=== PATIENT | male | born 1985 | race Hispanic/Latino ===

== ENCOUNTER 2020-04-05 15:28 | Inpatient (IN) | payer OTHER, SELFPAY ==
[2020-04-05] MEDS ORDERED: ACETAMINOPHEN 325 MG TAB PO ONE (17:05)
[2020-04-05] MEDS ORDERED: SODIUM CHLORIDE 0.9% 1000 ML IV SOLN IV ONE (17:30)
[2020-04-05] MEDS ORDERED: MEROPENEM/NS 1 GRAM/100 ML 1 GRAM/100 ML BAG IV ONE (17:33)
[2020-04-05] MEDS ORDERED: MORPHINE 2 MG/1 ML INJ ONE ×2 (17:36→17:47)
[2020-04-05] MEDS ORDERED: ACETAMINOPHEN 325 MG TAB ONE ×2 (17:36→17:46)
[2020-04-05] MEDS ORDERED: ACETAMINOPHEN 500 MG TAB PO ONE (17:37)
[2020-04-05] MEDS ORDERED: MORPHINE 4 MG/1 ML INJ IV ONE (17:37)
[2020-04-05] MEDS ORDERED: ONDANSETRON 4 MG/2 ML INJ IV ONE (17:37)
--- NOTE | 2020-04-05 17:37 | Emergency Department Report ---
ED General Adult HPI - General Chief complaint: Fever Stated complaint: FEVER Time Seen by Provider: 04/05/20 17:22 Source: patient Mode of arrival: Stretcher Limitations: Physical Limitation - History of Present Illness Initial comments: Patient is 34 years old male with no significant past medical history except for his recent admission to the hospital for perirectal abscess. Patient was discharged from the hospital yesterday with a PICC line and an order for meropenem, Augmentin and doxycycline. Patient brought to the emergency room from home for evaluation of fever and pain to the local area. Patient had an I&D done by Dr. Aleman on March 31. Patient denies any cough, shortness of breath, runny nose congestion. Patient also denied any urinary symptoms. Sepsis protocol initiated and patient received a dose of meropenem, normal saline and, Tylenol and morphine. Severity scale (0 -10): 7 - Related Data Home Medications Medication Instructions Recorded Confirmed Last Taken Balsalazide Disodium [Colazal] 750 mg PO TID 03/31/20 04/05/20 Unknown Insulin Detemir [Levemir VIAL] 25 unit SQ QHS 03/31/20 04/05/20 Unknown Insulin NPH/Regular [NovoLIN 70/30] 4 unit SUB-Q BID 03/31/20 04/05/20 Unknown OLANZapine [Zyprexa] 5 mg PO DAILY 03/31/20 04/05/20 Unknown Potassium Chloride [K-Dur] 10 meq PO BID 03/31/20 04/05/20 Unknown Tamsulosin [Flomax] 0.4 mg PO QDAY 03/31/20 04/05/20 Unknown ursodioL [Ursodiol] 300 mg PO BID 03/31/20 04/05/20 Unknown Previous Rx's Medication Instructions Recorded Last Taken Type Amoxicillin/K Clav Tab [Augmentin 1 tab PO Q12HR #28 tab 04/01/20 Unknown Rx 875 mg] Doxycycline Hyclate [Doxycycline 100 mg PO Q12HR #28 tab 04/01/20 Unknown Rx Hyclate TAB] Ibuprofen [Motrin 800 MG tab] 800 mg PO Q8HR PRN #20 tablet 04/01/20 Unknown Rx Acetaminophen [Acetaminophen TAB] 650 mg PO Q4H PRN tablet 04/04/20 Unknown Rx Allergies Allergy/AdvReac Type Severity Reaction Status Date / Time Sulfa (Sulfonamide Allergy Rash Verified 03/30/20 19:19 Antibiotics) ED Review of Systems ROS: Stated complaint: FEVER Other details as noted in HPI Comment: All other systems reviewed and negative Constitutional: chills, fever Respiratory: denies: cough, orthopnea, shortness of breath, SOB with exertion, SOB at rest, wheezing Cardiovascular: palpitations. denies: chest pain Gastrointestinal: denies: abdominal pain, nausea, vomiting Neurological: denies: headache, weakness ED Past Medical Hx - Past Medical History Hx Hypertension: No Hx Heart Attack/AMI: No Hx Congestive Heart Failure: No Hx Diabetes: Yes Hx Deep Vein Thrombosis: No Hx Pulmonary Embolism: No Hx Liver Disease: No Hx Renal Disease: No Hx Sickle Cell Disease: No Hx Arthritis: No Hx Seizures: No Hx Asthma: No Hx COPD: No Hx HIV: No - Surgical History Hx Pacemaker: No Hx Internal Defibrillator: No Hx Cholecystectomy: No Hx Appendectomy: No - Social History Smoking Status: Current Every Day Smoker - Medications Home Medications: Home Medications Medication Instructions Recorded Confirmed Last Taken Type Balsalazide Disodium [Colazal] 750 mg PO TID 03/31/20 04/05/20 Unknown History Insulin Detemir [Levemir VIAL] 25 unit SQ QHS 03/31/20 04/05/20 Unknown History Insulin NPH/Regular [NovoLIN 70/30] 4 unit SUB-Q BID 03/31/20 04/05/20 Unknown History OLANZapine [Zyprexa] 5 mg PO DAILY 03/31/20 04/05/20 Unknown History Potassium Chloride [K-Dur] 10 meq PO BID 03/31/20 04/05/20 Unknown History Tamsulosin [Flomax] 0.4 mg PO QDAY 03/31/20 04/05/20 Unknown History ursodioL [Ursodiol] 300 mg PO BID 03/31/20 04/05/20 Unknown History Amoxicillin/K Clav Tab [Augmentin 1 tab PO Q12HR #28 tab 04/01/20 04/05/20 Unknown Rx 875 mg] Doxycycline Hyclate [Doxycycline 100 mg PO Q12HR #28 tab 04/01/20 04/05/20 Unknown Rx Hyclate TAB] Ibuprofen [Motrin 800 MG tab] 800 mg PO Q8HR PRN #20 tablet 04/01/20 04/05/20 Unknown Rx Acetaminophen [Acetaminophen TAB] 650 mg PO Q4H PRN tablet 04/04/20 04/05/20 Unknown Rx ED Physical Exam - General Limitations: Physical Limitation General appearance: alert, in no apparent distress - Head Head exam: Present: atraumatic, normocephalic, normal inspection - ENT ENT exam: Present: mucous membranes dry - Neck Neck exam: Present: normal inspection, full ROM. Absent: tenderness, meningismus - Respiratory Respiratory exam: Present: normal lung sounds bilaterally - Cardiovascular Cardiovascular Exam: Present: tachycardia - GI/Abdominal GI/Abdominal exam: Present: soft, normal bowel sounds. Absent: distended, tenderness, guarding, rebound, rigid, organomegaly, mass, bruit, pulsatile mass, hernia - Rectal Rectal exam: Present: other (I&D with a fistula track. Stool coming through the fistula.) - Extremities Exam Extremities exam: Present: normal inspection, full ROM, normal capillary refill - Neurological Exam Neurological exam: Present: alert, oriented X3, CN II-XII intact - Skin Skin exam: Present: warm ED Course Vital Signs 04/05/20 04/05/20 04/05/20 17:27 18:15 18:31 Temperature 103.2 F H Pulse Rate 125 H 107 H 106 H Respiratory 12 19 23 Rate Blood Pressure 112/69 112/69 Blood Pressure 127/83 [Right] O2 Sat by Pulse 97 97 96 Oximetry 04/05/20 04/05/20 04/05/20 19:01 19:15 19:31 Temperature Pulse Rate 110 H 98 H 102 H Respiratory 18 14 13 Rate Blood Pressure 112/69 101/61 101/61 Blood Pressure [Right] O2 Sat by Pulse 96 97 95 Oximetry 04/05/20 04/05/20 04/05/20 19:45 20:01 21:01 Temperature Pulse Rate 109 H 99 H 83 Respiratory 21 15 15 Rate Blood Pressure 101/61 101/61 96/56 Blood Pressure [Right] O2 Sat by Pulse 93 94 97 Oximetry 04/05/20 04/05/20 04/05/20 21:14 21:21 21:45 Temperature 99.8 F H 98.2 F Pulse Rate 76 66 Respiratory 16 18 Rate Blood Pressure 92/55 86/51 Blood Pressure [Right] O2 Sat by Pulse 97 95 Oximetry ED Medical Decision Making - Lab Data Result diagrams: 04/06/20 05:58 04/06/20 05:58 - Radiology Data Radiology results: report reviewed - Medical Decision Making Patient is 34 years old male with no significant past medical history except for his recent admission to the hospital for perirectal abscess. Patient was discharged from the hospital yesterday with a PICC line and an order for meropenem, Augmentin and doxycycline. Patient brought to the emergency room from home for evaluation of fever and pain to the local area. Patient had an I&D done by Dr. Aleman on March 31. Patient denies any cough, shortness of breath, runny nose congestion. Patient also denied any urinary symptoms. Sepsis protocol initiated and patient received a dose of meropenem, normal saline and, Tylenol and morphine. Chest x-ray showed a left lower lobe pneumonia. Most likely hospital-acquired pneumonia. Patient started on Levaquin. I discussed the patient with Dr. Cisneros who is covering for Dr. Velásquez, he agreed to admit the patient to the hospital for further management. Critical Care Time: Yes Critical care time in (mins) excluding proc time.: 30 Critical care attestation.: If time is entered above; I have spent that time in minutes in the direct care of this critically ill patient, excluding procedure time. ED Disposition Clinical Impression: Perirectal abscess, Left lower lobe pneumonia, Fever, Sepsis Disposition: OP ADMIT IP TO THIS HOSP Is pt being admited?: Yes Condition: Stable
[2020-04-05 17:54] LABS: Bilirubin,Urine NEG (Negative); Blood,Urine NEG (Negative); Color,Urine Straw (Yellow); Protein,Urine <15 mg/dL mg/dL (Negative); Urobilinogen,Urine < 2.0 mg/dL (<2.0)
--- NOTE | 2020-04-05 17:58 | XRay Report ---
CHEST 1 VIEW 5:30 PM INDICATION / CLINICAL INFORMATION: Fever. COMPARISON: None available. FINDINGS: SUPPORT DEVICES: None. HEART / MEDIASTINUM: The heart size and pulmonary vasculature are normal area LUNGS / PLEURA: There is a small focal area of parenchymal opacity in the left medial lung base in th e retrocardiac region. The lungs are otherwise clear. There is no evidence of pleural effusion. No pn eumothorax. ADDITIONAL FINDINGS: No significant additional findings. IMPRESSION: Small area of pneumonia in the left lower lobe medially. Signer Name: Linus Stover MD Signed: 04/05/2020 5:54 PM Workstation Name: [id number]
[2020-04-05 18:29] LABS: Hemoglobin 9.1 gm/dl (11.8-15.2); Mean Corpuscular HGB Conc 33 % (32-34); Mean Corpuscular Volume 89 fl (84-94); Platelet Count 227 K/mm3 (140-440); Red Blood Count 3.16 M/mm3 (3.65-5.03); Red Cell Distribution Width 17.7 % (13.2-15.2)
[2020-04-05 18:48] LABS: Alanine Aminotransferase 9 units/L (7-56); Albumin 2.1 g/dL (3.9-5); BUN/Creatinine Ratio 10; Blood Urea Nitrogen 6 mg/dL (9-20); Calcium 7.9 mg/dL (8.4-10.2); Hemolysis Index 15
[2020-04-05 19:13] LABS: Basophils % (Manual) 0 % (0.0-1.8); Total Cells Counted 100
[2020-04-05 19:18] LABS: Stomatocytes Few
[2020-04-05 19:19] LABS: Platelet Estimate Consistent w Auto
[2020-04-05 20:07] LABS: C-Reactive Protein 7.2 mg/dL (0.00-1.30)
--- NOTE | 2020-04-05 23:19 | History and Physical Report ---
History of Present Illness Date of examination: 04/05/20 Date of admission: 04/05/20 18:42 Chief complaint: Fever 1 day History of present illness: Patient is 34 years old male with no significant past medical history except for his recent admission to the hospital for perirectal abscess. Patient was discharged from the hospital yesterday with a PICC line and an order for meropenem, Augmentin and doxycycline. Patient brought to the emergency room from home for evaluation of fever and pain to the local area. Patient had an I&D done by Dr. Aleman on March 31. Patient denies any cough, shortness of breath, runny nose congestion. Patient also denied any urinary symptoms. Sepsis protocol initiated and patient received a dose of meropenem, normal saline and, Tylenol and morphine. Work up in ED revealed L medial pneumonia Patient on appropriate abx. - Past Medical History BPH IDDM - Surgical History Perirectal abscess --I and D on March 31 2020 - Social History Smoking Status: Current Every Day Smoker - Diabetes - Medications Home Medications: Home Medications Medication Instructions Recorded Confirmed Last Taken Type Balsalazide Disodium [Colazal] 750 mg PO TID 03/31/20 04/05/20 Unknown History Insulin Detemir [Levemir VIAL] 25 unit SQ QHS 03/31/20 04/05/20 Unknown History Insulin NPH/Regular [NovoLIN 70/30] 4 unit SUB-Q BID 03/31/20 04/05/20 Unknown History OLANZapine [Zyprexa] 5 mg PO DAILY 03/31/20 04/05/20 Unknown History Potassium Chloride [K-Dur] 10 meq PO BID 03/31/20 04/05/20 Unknown History Tamsulosin [Flomax] 0.4 mg PO QDAY 03/31/20 04/05/20 Unknown History ursodioL [Ursodiol] 300 mg PO BID 03/31/20 04/05/20 Unknown History Amoxicillin/K Clav Tab [Augmentin 1 tab PO Q12HR #28 tab 04/01/20 04/05/20 Unknown Rx 875 mg] Doxycycline Hyclate [Doxycycline 100 mg PO Q12HR #28 tab 04/01/20 04/05/20 Unknown Rx Hyclate TAB] Ibuprofen [Motrin 800 MG tab] 800 mg PO Q8HR PRN #20 tablet 04/01/20 04/05/20 Unknown Rx Acetaminophen [Acetaminophen TAB] 650 mg PO Q4H PRN tablet 04/04/20 04/05/20 Unknown Rx Review of Systems ROS: Stated complaint: FEVER Other details as noted in HPI Comment: All other systems reviewed and negative Constitutional: chills, fever Respiratory: denies: cough, orthopnea, shortness of breath, SOB with exertion, SOB at rest, wheezing Cardiovascular: palpitations. denies: chest pain Gastrointestinal: denies: abdominal pain, nausea, vomiting Neurological: denies: headache, weakness Medications and Allergies Allergies Allergy/AdvReac Type Severity Reaction Status Date / Time Sulfa (Sulfonamide Allergy Rash Verified 03/30/20 19:19 Antibiotics) Home Medications Medication Instructions Recorded Confirmed Last Taken Type Balsalazide Disodium [Colazal] 750 mg PO TID 03/31/20 04/05/20 Unknown History Insulin Detemir [Levemir VIAL] 25 unit SQ QHS 03/31/20 04/05/20 Unknown History Insulin NPH/Regular [NovoLIN 70/30] 4 unit SUB-Q BID 03/31/20 04/05/20 Unknown History OLANZapine [Zyprexa] 5 mg PO DAILY 03/31/20 04/05/20 Unknown History Potassium Chloride [K-Dur] 10 meq PO BID 03/31/20 04/05/20 Unknown History Tamsulosin [Flomax] 0.4 mg PO QDAY 03/31/20 04/05/20 Unknown History ursodioL [Ursodiol] 300 mg PO BID 03/31/20 04/05/20 Unknown History Amoxicillin/K Clav Tab [Augmentin 1 tab PO Q12HR #28 tab 04/01/20 04/05/20 Unknown Rx 875 mg] Doxycycline Hyclate [Doxycycline 100 mg PO Q12HR #28 tab 04/01/20 04/05/20 Unknown Rx Hyclate TAB] Ibuprofen [Motrin 800 MG tab] 800 mg PO Q8HR PRN #20 tablet 04/01/20 04/05/20 Unknown Rx Acetaminophen [Acetaminophen TAB] 650 mg PO Q4H PRN tablet 04/04/20 04/05/20 Unknown Rx Exam - Constitutional Vitals: Temp Pulse Resp BP Pulse Ox 98.2 F 66 18 86/51 95 04/05/20 21:45 04/05/20 21:45 04/05/20 21:45 04/05/20 21:45 04/05/20 21:45 General appearance: Present: no acute distress, well-nourished - EENT Eyes: Present: PERRL ENT: hearing intact, clear oral mucosa - Neck Neck: Present: supple, normal ROM - Respiratory Respiratory effort: normal Respiratory: bilateral: CTA - Cardiovascular Heart rate: 78 Rhythm: regular Heart Sounds: Present: S1 & S2. Absent: rub, click - Extremities Extremities: no ischemia, pulses intact, pulses symmetrical, No edema Peripheral Pulses: within normal limits - Abdominal General gastrointestinal: Present: soft, non-tender, non-distended, normal bowel sounds Male genitourinary: Present: normal - Rectal Rectal Exam: deferred - Integumentary Integumentary: Present: clear, warm, dry - Musculoskeletal Musculoskeletal: gait normal, strength equal bilaterally - Psychiatric Psychiatric: appropriate mood/affect, intact judgment & insight - Neurologic Neurologic: CNII-XII intact, moves all extremities - Allied Health Allied health notes reviewed: nursing, case management Results - Labs CBC & Chem 7: 04/05/20 17:58 04/05/20 18:58 Labs: Laboratory Last Values WBC 4.7 K/mm3 (4.5-11.0) 04/05/20 17:58 RBC 3.16 M/mm3 (3.65-5.03) L 04/05/20 17:58 Hgb 9.1 gm/dl (11.8-15.2) L 04/05/20 17:58 Hct 28.0 % (35.5-45.6) L 04/05/20 17:58 MCV 89 fl (84-94) 04/05/20 17:58 MCH 29 pg (28-32) 04/05/20 17:58 MCHC 33 % (32-34) 04/05/20 17:58 RDW 17.7 % (13.2-15.2) H 04/05/20 17:58 Plt Count 227 K/mm3 (140-440) 04/05/20 17:58 [place] % (Auto) Deck Specialist 04/05/20 17:58 Add Manual Diff Complete 04/05/20 17:58 Total Counted 100 04/05/20 17:58 Seg Neuts % (Manual) 67.0 % (40.0-70.0) 04/05/20 17:58 Band Neutrophils % 0 % 04/05/20 17:58 Lymphocytes % (Manual) 21.0 % (13.4-35.0) 04/05/20 17:58 Reactive Lymphs % (Man) 0 % 04/05/20 17:58 Monocytes % (Manual) 11.0 % (0.0-7.3) H 04/05/20 17:58 Eosinophils % (Manual) 1.0 % (0.0-4.3) 04/05/20 17:58 Basophils % (Manual) 0 % (0.0-1.8) 04/05/20 17:58 Metamyelocytes % 0 % 04/05/20 17:58 Myelocytes % 0 % 04/05/20 17:58 Promyelocytes % 0 % 04/05/20 17:58 Blast Cells % 0 % 04/05/20 17:58 Nucleated RBC % Not Reportable 04/05/20 17:58 Seg Neutrophils # Man 3.1 K/mm3 (1.8-7.7) 04/05/20 17:58 Band Neutrophils # 0.0 K/mm3 04/05/20 17:58 Lymphocytes # (Manual) 1.0 K/mm3 (1.2-5.4) L 04/05/20 17:58 Abs React Lymphs (Man) 0.0 K/mm3 04/05/20 17:58 Monocytes # (Manual) 0.5 K/mm3 (0.0-0.8) 04/05/20 17:58 Eosinophils # (Manual) 0.0 K/mm3 (0.0-0.4) 04/05/20 17:58 Basophils # (Manual) 0.0 K/mm3 (0.0-0.1) 04/05/20 17:58 Metamyelocytes # 0.0 K/mm3 04/05/20 17:58 Myelocytes # 0.0 K/mm3 04/05/20 17:58 Promyelocytes # 0.0 K/mm3 04/05/20 17:58 Blast Cells # 0.0 K/mm3 04/05/20 17:58 WBC Morphology Not Reportable 04/05/20 17:58 Hypersegmented Neuts Not Reportable 04/05/20 17:58 Hyposegmented Neuts Not Reportable 04/05/20 17:58 Hypogranular Neuts Not Reportable 04/05/20 17:58 Smudge Cells Not Reportable 04/05/20 17:58 Toxic Granulation Not Reportable 04/05/20 17:58 Toxic Vacuolation Not Reportable 04/05/20 17:58 Dohle Bodies Not Reportable 04/05/20 17:58 Pelger-Huet Anomaly Not Reportable 04/05/20 17:58 Carlota Rods Not Reportable 04/05/20 17:58 Platelet Estimate Consistent w auto 04/05/20 17:58 Clumped Platelets Not Reportable 04/05/20 17:58 Plt Clumps, EDTA Not Reportable 04/05/20 17:58 Large Platelets Not Reportable 04/05/20 17:58 Giant Platelets Not Reportable 04/05/20 17:58 Platelet Satelliting Not Reportable 04/05/20 17:58 Plt Morphology Comment Not Reportable 04/05/20 17:58 RBC Morphology Not Reportable 04/05/20 17:58 Dimorphic RBCs Not Reportable 04/05/20 17:58 Polychromasia Few 04/05/20 17:58 Hypochromasia Not Reportable 04/05/20 17:58 Poikilocytosis Not Reportable 04/05/20 17:58 Anisocytosis Not Reportable 04/05/20 17:58 Microcytosis 1+ 04/05/20 17:58 Macrocytosis Not Reportable 04/05/20 17:58 Spherocytes Not Reportable 04/05/20 17:58 Pappenheimer Bodies Not Reportable 04/05/20 17:58 Sickle Cells Not Reportable 04/05/20 17:58 Target Cells Not Reportable 04/05/20 17:58 Tear Drop Cells Not Reportable 04/05/20 17:58 Ovalocytes Not Reportable 04/05/20 17:58 Stomatocytes Few 04/05/20 17:58 Helmet Cells Not Reportable 04/05/20 17:58 Lo-Manuel Garcia Ii Bodies Not Reportable 04/05/20 17:58 [place] Rings Not Reportable 04/05/20 17:58 [place] Cells Not Reportable 04/05/20 17:58 Bite Cells Not Reportable 04/05/20 17:58 Crenated Cell Not Reportable 04/05/20 17:58 Elliptocytes Not Reportable 04/05/20 17:58 Acanthocytes (Spur) Not Reportable 04/05/20 17:58 Rouleaux Not Reportable 04/05/20 17:58 Hemoglobin C Crystals Not Reportable 04/05/20 17:58 Schistocytes Not Reportable 04/05/20 17:58 Malaria parasites Not Reportable 04/05/20 17:58 Bryon Bodies Not Reportable 04/05/20 17:58 Hem Pathologist Commnt No 04/05/20 17:58 D-Dimer 597.75 ng/mlDDU (0-234) H 04/05/20 18:58 Sodium 139 mmol/L (137-145) 04/05/20 17:58 Potassium 3.7 mmol/L (3.6-5.0) 04/05/20 17:58 Chloride 102.0 mmol/L (98-107) 04/05/20 17:58 Carbon Dioxide 25 mmol/L (22-30) 04/05/20 17:58 Anion Gap 16 mmol/L 04/05/20 17:58 BUN 6 mg/dL (9-20) L 04/05/20 17:58 Creatinine 0.6 mg/dL (0.8-1.5) L 04/05/20 17:58 Estimated GFR > 60 ml/min 04/05/20 17:58 BUN/Creatinine Ratio 10 % 04/05/20 17:58 Glucose 134 mg/dL (75-100) H 04/05/20 18:58 Lactic Acid 1.10 mmol/L (0.7-2.0) 04/05/20 17:58 Calcium 7.9 mg/dL (8.4-10.2) L 04/05/20 17:58 Ferritin 80.4 ng/mL (13.0-400.0) 04/05/20 18:58 Total Bilirubin 0.30 mg/dL (0.1-1.2) 04/05/20 17:58 AST 10 units/L (5-40) 04/05/20 17:58 ALT 9 units/L (7-56) 04/05/20 17:58 Alkaline Phosphatase 323 units/L (35-129) H 04/05/20 17:58 Lactate Dehydrogenase 155 units/L (91-180) 04/05/20 18:58 C-Reactive Protein 7.20 mg/dL (0.00-1.30) H 04/05/20 18:58 Total Protein 5.9 g/dL (6.3-8.2) L 04/05/20 17:58 Albumin 2.1 g/dL (3.9-5) L 04/05/20 17:58 Albumin/Globulin Ratio 0.6 % 04/05/20 17:58 Urine Color Straw (Yellow) 04/05/20 17:31 Urine Turbidity Clear (Clear) 04/05/20 17:31 Urine pH 8.0 (5.0-7.0) H 04/05/20 17:31 Ur Specific [place] 1.006 (1.003-1.030) 04/05/20 17:31 Urine Protein <15 mg/dl mg/dL (Negative) 04/05/20 17:31 Urine Glucose (UA) >=500 mg/dL (Negative) 04/05/20 17:31 Urine Ketones Neg mg/dL (Negative) 04/05/20 17:31 Urine Blood Neg (Negative) 04/05/20 17:31 Urine Nitrite Neg (Negative) 04/05/20 17:31 Urine Bilirubin Neg (Negative) 04/05/20 17:31 Urine Urobilinogen < 2.0 mg/dL (<2.0) 04/05/20 17:31 Ur Leukocyte Esterase Neg (Negative) 04/05/20 17:31 Urine WBC (Auto) 1.0 /HPF (0.0-6.0) 04/05/20 17:31 Urine RBC (Auto) 2.0 /HPF (0.0-6.0) 04/05/20 17:31 Short CBC 04/05/20 Range/Units 17:58 WBC 4.7 (4.5-11.0) K/mm3 Hgb 9.1 L (11.8-15.2) gm/dl Hct 28.0 L (35.5-45.6) % Plt Count 227 (140-440) K/mm3 BMP 04/05/20 04/05/20 17:58 18:58 Sodium 139 Potassium 3.7 Chloride 102.0 Carbon Dioxide 25 BUN 6 L Creatinine 0.6 L Glucose 156 H 134 H Calcium 7.9 L Liver Function 04/05/20 Range/Units 17:58 Total Bilirubin 0.30 (0.1-1.2) mg/dL AST 10 (5-40) units/L ALT 9 (7-56) units/L Alkaline Phosphatase 323 H (35-129) units/L Albumin 2.1 L (3.9-5) g/dL Urine 04/05/20 Range/Units 17:31 Urine Color Straw (Yellow) Urine pH 8.0 H (5.0-7.0) Ur Specific [place] 1.006 (1.003-1.030) Urine Protein <15 mg/dl (Negative) mg/dL Urine Glucose (UA) >=500 (Negative) mg/dL Microbiology: Microbiology 04/05/20 17:58 Peripheral/Venous Blood Culture - Preliminary Culture in Progress 04/05/20 17:58 Peripheral/Venous Blood Culture - Preliminary Culture in Progress - Imaging and Cardiology Chest x-ray: report reviewed (LLL pneumonia) Assessment and Plan Advance Directives: Yes (Full code) VTE prophylaxis?: Chemical - Patient Problems (1) Left lower lobe pneumonia Current Visit: Yes Status: Acute Plan to address problem: Patient on appropriate abx COnt Meropenem. Reason for admitting is rule out COvid reated pna If [place] virus negative --Patient maybe discharged on same abx Isolation tillo then (2) Perirectal abscess Current Visit: Yes Status: Acute Plan to address problem: Cont Meropenem and Augmentin (3) IDDM (insulin dependent diabetes mellitus) Current Visit: Yes Status: Chronic Plan to address problem: Recent last A1c 7.1 a week ago Cont Home Insulin and coverage (4) BPH (benign prostatic hyperplasia) Current Visit: Yes Status: Chronic Qualifiers: Lower urinary tract symptom presence: symptoms present Plan to address problem: Cont Flomax (5) Malnutrition Current Visit: Yes Status: Acute Qualifiers: Protein-calorie malnutrition severity: severe Plan to address problem: Albumin 2.1 Dietitian consult Dietary supplements ordered (6) Hypocalcemia Current Visit: Yes Status: Acute Plan to address problem: Supplemented (7) DVT prophylaxis Current Visit: No Status: Acute Plan to address problem: On Lovenox and GI prophylaxis
[2020-04-05] MEDS ORDERED: ACETAMINOPHEN 325 MG TAB PO PRN ×2 (23:31→23:33)
[2020-04-05] MEDS ORDERED: ONDANSETRON 4 MG/2 ML INJ IV PRN (23:33)
[2020-04-05] MEDS ORDERED: METOCLOPRAMIDE 10 MG/2 ML INJ IV PRN (23:34)
[2020-04-05] MEDS ORDERED: URSODIOL 300 MG PO SCH (23:45)
[2020-04-05] MEDS ORDERED: DOXYCYCLINE HYCLATE 100 MG PO SCH (23:45)
[2020-04-06] MEDS: MEROPENEM/NS 500 MG/50 ML 500 MG/50 ML BAG IV SCH ×4 (00:39→17:27)
[2020-04-06] MEDS: SODIUM CHLORIDE 0.9% 1000 ML 1,000 ML IV SCH ×2 (00:39→09:46)
[2020-04-06] MEDS: AMOXICILLIN/K CLAV 875/125MG TAB PO SCH ×3 (00:40→22:09)
[2020-04-06] MEDS: INSULIN NPH/REGULAR 70/30 INJ SUB-Q SCH ×4 (00:40→17:29)
[2020-04-06] MEDS: DOXYCYCLINE 100 MG CAP PO SCH ×3 (00:41→22:09)
[2020-04-06] MEDS: POTASSIUM CHLORIDE ER 20 MEQ TAB PO SCH ×3 (00:41→22:09)
[2020-04-06] MEDS: oxyCODONE /ACETAMINOPHEN 5-325MG TAB PO PRN ×2 (01:01→12:23)
[2020-04-06] MEDS: IBUPROFEN 800 MG TAB PO PRN (05:50)
[2020-04-06 07:09] LABS: Basophils % (Auto) 0.2 % (0.0-1.8); Eosinophils % (Auto) 0.6 % (0.0-4.3); Hematocrit 29.2 % (35.5-45.6); Hemoglobin 9.4 gm/dl (11.8-15.2); Lymphocytes # (Auto) 1.4 K/mm3 (1.2-5.4); Mean Corpuscular HGB Conc 32 % (32-34); Mean Corpuscular Volume 89 fl (84-94); Monocytes # (Auto) 0.8 K/mm3 (0.0-0.8); Monocytes % (Auto) 15.7 % (0.0-7.3); Platelet Count 257 K/mm3 (140-440); Red Blood Count 3.28 M/mm3 (3.65-5.03); Red Cell Distribution Width 18.5 % (13.2-15.2)
[2020-04-06 07:32] LABS: Alanine Aminotransferase 8 units/L (7-56); Albumin 2.3 g/dL (3.9-5); BUN/Creatinine Ratio 7; Blood Urea Nitrogen 5 mg/dL (9-20); Calcium 8.1 mg/dL (8.4-10.2); Hemolysis Index 3
[2020-04-06] MEDS ORDERED: BALSALAZIDE DISODIUM 750 MG PO SCH (08:00)
--- NOTE | 2020-04-06 08:14 | Progress Note ---
Assessment and Plan - Patient Problems (1) Fever Current Visit: Yes Status: Acute Plan to address problem: Patient fever most likely secondary to pneumonia versus perirectal abscess. Patient had no fever for 4 days prior to being discharged and now developed a fever obviously infiltrate on lung chest x-ray. (2) Left lower lobe pneumonia Current Visit: Yes Status: Acute (3) Malnutrition Current Visit: Yes Status: Acute Qualifiers: Protein-calorie malnutrition severity: severe Plan to address problem: Patient nutritional status has been addressed. (4) Perirectal abscess Current Visit: Yes Status: Acute Plan to address problem: Perirectal abscess continue meropenem and we will do on outpatient basis. Subjective Date of service: 04/06/20 Principal diagnosis: Pneumonia Interval history: Patient 34 years old just here and discharge for perirectal abscess. Patient was doing well has been afebrile greater than 72 hours prior to discharge. Patient was discharged on IV antibiotics meropenem and presented a day later with a fever of 103 and diagnosed with left lower lobe pneumonia. Since that time patient has been afebrile temp 98.5. Upon admission patient did not have any symptoms of pneumonia such as shortness of breath no cough no congestion no dyspnea on exertion no sinus symptoms. Patient states now he is in pain would like something for pain control. Objective - Constitutional Vitals: Vital Signs - 12hr 04/05/20 04/05/20 04/05/20 21:01 21:14 21:21 Temperature 99.8 F H Pulse Rate 83 76 Respiratory 15 16 Rate Respiratory Rate [buttock] Blood Pressure 96/56 92/55 Blood Pressure [Right] O2 Sat by Pulse 97 97 Oximetry 04/05/20 04/05/20 04/05/20 21:45 22:00 23:00 Temperature 98.2 F Pulse Rate 66 Respiratory 18 Rate Respiratory 18 Rate [buttock] Blood Pressure 86/51 Blood Pressure [Right] O2 Sat by Pulse 95 95 Oximetry 04/06/20 04/06/20 04/06/20 01:01 01:15 02:01 Temperature 98.2 F Pulse Rate 66 Respiratory 16 16 17 Rate Respiratory Rate [buttock] Blood Pressure Blood Pressure 127/83 [Right] O2 Sat by Pulse Oximetry 04/06/20 04/06/20 04/06/20 02:24 04:49 05:50 Temperature 98.9 F Pulse Rate 94 H Respiratory 20 18 Rate Respiratory Rate [buttock] Blood Pressure 94/61 93/66 Blood Pressure [Right] O2 Sat by Pulse 95 Oximetry General appearance: Present: no acute distress, mild distress - EENT Eyes: PERRL, EOM intact ENT: hearing intact, clear oral mucosa - Neck Neck: supple - Respiratory Respiratory: bilateral: CTA - Cardiovascular Rhythm: regular Heart Sounds: Present: S1 & S2. Absent: gallop, rub Extremities: pulses intact, No edema, normal color, Full ROM - Genitourinary Male genitourinary: normal - Integumentary Integumentary: clear, warm, dry - Musculoskeletal Musculoskeletal: strength equal bilaterally, generalized weakness - Neurologic Neurologic: moves all extremities - Psychiatric Psychiatric: appropriate mood/affect, intact judgment & insight, memory intact, other (Noticeable cognitive complications.) - Labs CBC & Chem 7: 04/06/20 05:58 04/06/20 05:58 Labs: Abnormal lab results 04/05/20 04/05/20 04/05/20 Range/Units 17:31 17:58 17:58 RBC 3.16 L (3.65-5.03) M/mm3 Hgb 9.1 L (11.8-15.2) gm/dl Hct 28.0 L (35.5-45.6) % RDW 17.7 H (13.2-15.2) % [place] % (Auto) (0.0-7.3) % Monocytes % (Manual) 11.0 H (0.0-7.3) % Lymphocytes # (Manual) 1.0 L (1.2-5.4) K/mm3 D-Dimer (0-234) ng/mlDDU BUN 6 L (9-20) mg/dL Creatinine 0.6 L (0.8-1.5) mg/dL Glucose 156 H (75-100) mg/dL POC Glucose (70-105) Calcium 7.9 L (8.4-10.2) mg/dL Alkaline Phosphatase 323 H (35-129) units/L C-Reactive Protein (0.00-1.30) mg/dL Total Protein 5.9 L (6.3-8.2) g/dL Albumin 2.1 L (3.9-5) g/dL Urine pH 8.0 H (5.0-7.0) 04/05/20 04/05/20 04/06/20 Range/Units 18:58 18:58 00:15 RBC (3.65-5.03) M/mm3 Hgb (11.8-15.2) gm/dl Hct (35.5-45.6) % RDW (13.2-15.2) % [place] % (Auto) (0.0-7.3) % Monocytes % (Manual) (0.0-7.3) % Lymphocytes # (Manual) (1.2-5.4) K/mm3 D-Dimer 597.75 H (0-234) ng/mlDDU BUN (9-20) mg/dL Creatinine (0.8-1.5) mg/dL Glucose 134 H (75-100) mg/dL POC Glucose 123 H (70-105) Calcium (8.4-10.2) mg/dL Alkaline Phosphatase (35-129) units/L C-Reactive Protein 7.20 H (0.00-1.30) mg/dL Total Protein (6.3-8.2) g/dL Albumin (3.9-5) g/dL Urine pH (5.0-7.0) 04/06/20 04/06/20 04/06/20 Range/Units 05:58 05:58 08:02 RBC 3.28 L (3.65-5.03) M/mm3 Hgb 9.4 L (11.8-15.2) gm/dl Hct 29.2 L (35.5-45.6) % RDW 18.5 H (13.2-15.2) % [place] % (Auto) 15.7 H (0.0-7.3) % Monocytes % (Manual) (0.0-7.3) % Lymphocytes # (Manual) (1.2-5.4) K/mm3 D-Dimer (0-234) ng/mlDDU BUN 5 L (9-20) mg/dL Creatinine 0.7 L (0.8-1.5) mg/dL Glucose 131 H (75-100) mg/dL POC Glucose 125 H (70-105) Calcium 8.1 L (8.4-10.2) mg/dL Alkaline Phosphatase 306 H (35-129) units/L C-Reactive Protein (0.00-1.30) mg/dL Total Protein 5.9 L (6.3-8.2) g/dL Albumin 2.3 L (3.9-5) g/dL Urine pH (5.0-7.0)
[2020-04-06] MEDS: CALCIUM CARB/VIT D3/MINERALS 600 MG/800 UNITS TAB PO SCH ×2 (09:47→22:09)
[2020-04-06] MEDS: TAMSULOSIN 0.4 MG CAP PO SCH (09:47)
[2020-04-06] MEDS: HYDROmorphone 1 MG/1 ML INJ IV PRN ×3 (09:53→20:50)
[2020-04-06] MEDS ORDERED: FAMOTIDINE 20 MG/2 ML INJ IV SCH (10:00)
[2020-04-06] MEDS ORDERED: INSULIN DETEMIR 25 UNIT SQ SCH (22:00)
[2020-04-06] MEDS ORDERED: INSULIN GLARGINE 100 UNITS/ML SUB-Q SCH (22:00)
[2020-04-06] MEDS: FAMOTIDINE 20 MG TAB PO SCH (22:09)
[2020-04-07] MEDS: MEROPENEM/NS 500 MG/50 ML 500 MG/50 ML BAG IV SCH ×4 (00:11→17:30)
[2020-04-07] MEDS: oxyCODONE /ACETAMINOPHEN 5-325MG TAB PO PRN ×3 (08:08→22:46)
--- NOTE | 2020-04-07 08:11 | Progress Note ---
Assessment and Plan - Patient Problems (1) Fever Current Visit: Yes Status: Acute Plan to address problem: Patient fever exact etiology unknown. Most likely secondary to pneumonia. Patient on meropenem for the perirectal abscess. Was in the hospital afebrile for 72 hours. Patient is discharged the next day presented with fever and pneumonia. Most likely hospital-acquired pneumonia. Will await ID recommendations for possibilities of addition of antibiotic if needed for hospital-acquired pneumonia. [place] patient discharge back to the facility with continued treatment. Patient is COVID negative. Has IV antibiotics set up in the home already. No respiratory symptoms hemodynamically stable. (2) Left lower lobe pneumonia Current Visit: Yes Status: Acute Plan to address problem: As mentioned above I think this can be treated as outpatient. Will need to determine whether additional antibiotic coverage is required for community- acquired pneumonia. (3) Malnutrition Current Visit: Yes Status: Acute Qualifiers: Protein-calorie malnutrition severity: severe Plan to address problem: Patient now eating much better. Appetite is picked up no longer malnourished. (4) Perirectal abscess Current Visit: Yes Status: Acute Plan to address problem: Perirectal abscess continue meropenem and we will do on outpatient basis. (5) IDDM (insulin dependent diabetes mellitus) Current Visit: Yes Status: Chronic Plan to address problem: We will add patient's insulin back. Cover with sliding scale insulin. Subjective Date of service: 04/07/20 Principal diagnosis: Pneumonia Interval history: Patient 34 years old just here and discharge for perirectal abscess. Patient was doing well has been afebrile greater than 72 hours prior to discharge. Patient was discharged on IV antibiotics meropenem and presented a day later with a fever of 103 and diagnosed with left lower lobe pneumonia. Patient had fever yesterday 101.5. Patient does have minimal symptoms of mild cough nonproductive. Objective - Constitutional Vitals: Vital Signs - 12hr 04/06/20 04/06/20 04/06/20 20:50 21:20 21:36 Temperature 98.5 F Pulse Rate Respiratory 18 18 18 Rate Blood Pressure 94/52 O2 Sat by Pulse Oximetry 04/06/20 04/07/20 22:00 04:32 Temperature 99.8 F H Pulse Rate 92 H Respiratory 16 Rate Blood Pressure 95/53 O2 Sat by Pulse 96 95 Oximetry General appearance: Present: no acute distress, well-nourished - EENT Eyes: PERRL, EOM intact ENT: hearing intact, clear oral mucosa Ears: bilateral: normal - Neck Neck: supple, normal ROM - Respiratory Respiratory effort: normal Respiratory: bilateral: CTA - Breasts Breasts: normal - Cardiovascular Rhythm: regular Heart Sounds: Present: S1 & S2. Absent: gallop, rub Extremities: pulses intact, No edema, normal color, Full ROM Extremity abnormal: other (Perirectal abscess bandage local wound care.) - Gastrointestinal General gastrointestinal: Present: soft, non-tender, non-distended, normal bowel sounds - Genitourinary Male genitourinary: normal - Integumentary Integumentary: clear, warm, dry - Musculoskeletal Musculoskeletal: 1, strength equal bilaterally - Neurologic Neurologic: moves all extremities - Psychiatric Psychiatric: memory intact, appropriate mood/affect, intact judgment & insight - Labs CBC & Chem 7: 04/06/20 05:58 04/06/20 05:58 Labs: Abnormal lab results 04/06/20 04/06/20 04/07/20 Range/Units 11:29 16:27 07:31 POC Glucose 291 H 326 H 145 H (70-105)
[2020-04-07] MEDS: POTASSIUM CHLORIDE ER 20 MEQ TAB PO SCH ×2 (09:08→22:46)
[2020-04-07] MEDS: AMOXICILLIN/K CLAV 875/125MG TAB PO SCH (09:08)
[2020-04-07] MEDS: DOXYCYCLINE 100 MG CAP PO SCH (09:08)
[2020-04-07] MEDS: FAMOTIDINE 20 MG TAB PO SCH ×2 (09:08→23:07)
[2020-04-07] MEDS: CALCIUM CARB/VIT D3/MINERALS 600 MG/800 UNITS TAB PO SCH ×2 (09:08→22:47)
[2020-04-07] MEDS: INSULIN NPH/REGULAR 70/30 INJ SUB-Q SCH ×2 (09:08→17:30)
[2020-04-07] MEDS: TAMSULOSIN 0.4 MG CAP PO SCH (09:09)
[2020-04-07] MEDS: IBUPROFEN 800 MG TAB PO PRN (14:17)
--- NOTE | 2020-04-07 15:23 | Consultation ---
History of Present Illness - Reason for Consult Consult date: 04/07/20 - History of Present Illness 34 yo M PMhx perirectal abscess presents to the hospital due to fever and pain one day after being discharged for his perirectal abscess. During the previous admission the abscess was I&D'd by Dr. bain, and surgical cultures at the time grew an ESBL E coli, and he was dischrged with IV meropenem through a midline with plans to complete 2 weeks of therapy. He was also discharged with doxycy chatman and Augmentin. Febrile to 101.5 with a white count of 5. Currently on meropenem, doxycycline, and Augmentin. COVID testing negative. Blood cultures NGTD. Imaging personally reviewed: CXR: small area of PNA in LLL Review of Systems: Bold if positive, otherwise negative General: fevers, chills, rigors HEENT: visual disturbance, diplopia, eye pain Respiratory: cough, sputum, hemoptysis, shortness of breath Cardiovascular: chest pain, syncope Gastrointestinal: nausea, vomiting, diarrhea, abdominal pain Genitourinary: dysuria, hematuria, flank pain Musculoskeletal: neck pain, back pain, joint pain, edema Neurologic: headaches, seizures Hematologic: easy bruising or bleeding Endocrine: night sweats, acute weight loss Skin: rash, jaundice, redness Psychiatric: suicidal, homicidal ideation Medications and Allergies Allergies Allergy/AdvReac Type Severity Reaction Status Date / Time Sulfa (Sulfonamide Allergy Rash Verified 03/30/20 19:19 Antibiotics) Home Medications Medication Instructions Recorded Confirmed Last Taken Type Balsalazide Disodium [Colazal] 750 mg PO TID 03/31/20 04/05/20 Unknown History Insulin Detemir [Levemir VIAL] 25 unit SQ QHS 03/31/20 04/05/20 Unknown History Insulin NPH/Regular [NovoLIN 70/30] 4 unit SUB-Q BID 03/31/20 04/05/20 Unknown History OLANZapine [Zyprexa] 5 mg PO DAILY 03/31/20 04/05/20 Unknown History Potassium Chloride [K-Dur] 10 meq PO BID 03/31/20 04/05/20 Unknown History Tamsulosin [Flomax] 0.4 mg PO QDAY 03/31/20 04/05/20 Unknown History ursodioL [Ursodiol] 300 mg PO BID 03/31/20 04/05/20 Unknown History Amoxicillin/K Clav Tab [Augmentin 1 tab PO Q12HR #28 tab 04/01/20 04/05/20 Unknown Rx 875 mg] Doxycycline Hyclate [Doxycycline 100 mg PO Q12HR #28 tab 04/01/20 04/05/20 Unknown Rx Hyclate TAB] Ibuprofen [Motrin 800 MG tab] 800 mg PO Q8HR PRN #20 tablet 04/01/20 04/05/20 Unknown Rx Acetaminophen [Acetaminophen TAB] 650 mg PO Q4H PRN tablet 04/04/20 04/05/20 Unknown Rx Active Meds: Active Medications Acetaminophen (Tylenol) 650 mg PO Q4H PRN PRN Reason: Pain MILD(1-3)/Fever >100.5/VO Last Admin: 04/06/20 17:26 Dose: 650 mg Documented by: Amoxicillin/Clavulanate Potassium (Augmentin 875 Mg) 1 each PO Q12HR [facility] Last Admin: 04/07/20 09:08 Dose: 1 each Documented by: Doxycycline Hyclate (Vibramycin) 100 mg PO Q12HR [facility] Last Admin: 04/07/20 09:08 Dose: 100 mg Documented by: Famotidine (Pepcid) 20 mg PO BID [facility] Last Admin: 04/07/20 09:08 Dose: 20 mg Documented by: Hydromorphone HCl (Dilaudid) 0.5 mg IV Q3H PRN PRN Reason: Pain , Severe (7-10) Last Admin: 04/06/20 20:50 Dose: 0.5 mg Documented by: Meropenem (Merrem/Ns 500 Mg/50 Ml) 500 mg in 50 mls @ 50 mls/hr IV Q6HR [facility] Stop: 04/10/20 00:00 Last Admin: 04/07/20 11:02 Dose: 50 mls/hr Documented by: Ibuprofen (Ibuprofen) 800 mg PO Q8HR PRN PRN Reason: Pain, Moderate (4-6) Last Admin: 04/07/20 14:17 Dose: 800 mg Documented by: Insulin Glargine (Lantus) 30 units SUB-Q QHS [facility] Insulin Human Isoph/Insulin Regular (Humulin 70/30) 4 unit SUB-Q BIDDIAB [facility] Last Admin: 04/07/20 09:08 Dose: 4 unit Documented by: Metoclopramide HCl (Reglan) 10 mg IV Q6H PRN PRN Reason: Nausea And Vomiting Miscellaneous Medication (Balsalazide Disodium [Colazal]) 750 mg PO TID [facility] Miscellaneous Medication (Ursodiol [Ursodiol]) 300 mg PO BID [facility] Multivitamins/Minerals (Caltrate Plus) 1 each PO BID [facility] Last Admin: 04/07/20 09:08 Dose: 1 each Documented by: Olanzapine (Zyprexa) 5 mg PO DAILY [facility] Last Admin: 04/07/20 09:08 Dose: 5 mg Documented by: Ondansetron HCl (Zofran) 4 mg IV Q8H PRN PRN Reason: Nausea And Vomiting Oxycodone/Acetaminophen (Percocet 5/325) 1 tab PO Q6H PRN PRN Reason: Pain, Moderate (4-6) Last Admin: 04/07/20 08:08 Dose: 1 tab Documented by: Potassium Chloride (K-Dur) 10 meq PO BID [facility] Last Admin: 04/07/20 09:08 Dose: 10 meq Documented by: Sodium Chloride (Sodium Chloride Flush Syringe 10 Ml) 10 ml IV BID [facility] Last Admin: 04/07/20 09:09 Dose: Not Given Documented by: Sodium Chloride (Sodium Chloride Flush Syringe 10 Ml) 10 ml IV PRN PRN PRN Reason: LINE FLUSH Tamsulosin HCl (Flomax) 0.4 mg PO QDAY [facility] Last Admin: 04/07/20 09:09 Dose: 0.4 mg Documented by: Physical Examination - Physical Exam Narrative exam: Physical Exam: Constitutional: Alert, cooperative. No acute distress Head, Ears, Nose: Normocephalic, atraumatic. External ears, nose normal Eyes: Conjunctivae/corneas clear. No icterus. No ptosis. Neck: Supple, no meningeal signs Oral: dentition fair, no thrush Cardiovascular: S1, S2 normal. Respiratory: Good air entry, clear to auscultation bilaterally GI: Soft, non-tender; bowel sounds normal. No peritoneal signs. Musculoskeletal: No pedal edema, no cyanosis. Skin: No rash or abscess Hem/Lymphatic: No palpable cervical or supraclavicular nodes. No lymphangitis Psych: Mood ok. Affect normal Neurological: Awake, alert, oriented. No gross abnormality - Constitutional Vitals: Vital Signs Temp Pulse Resp BP Pulse Ox 98.7 F 76 20 98/69 96 04/07/20 11:35 04/07/20 11:35 04/07/20 11:35 04/07/20 14:16 04/07/20 11:35 Temperature -Last 24 Hours Temperature 98.7 F Temperature 99.8 F Temperature 98.5 F Temperature 101.0 F Results - Labs CBC & Chem 7: 04/06/20 05:58 04/06/20 05:58 Labs: Abnormal lab results 04/06/20 04/07/20 04/07/20 Range/Units 16:27 07:31 11:46 POC Glucose 326 H 145 H 361 H (70-105) Assessment and Plan Cultures: Blood culture 04/05/2020 pending A/P: 34 yo M PMHx perirectal abscess admitted with fevers and pain in the perirectal area. #Acute sepsis: present with fevers and tachycardia. Unclear source, pneumonia vs abscess recurrence. I am unclear as to why the patient was discharged on doxy/Augmentin as well as the meropenem as it is not in Dr. Gaona's note, and much of the antibiotic spectrum is the same, and both drugs are clearly ineffective against an ESBL. #Perirectal abscess: recommend CT of the abdomen/pelvis to ensure no reaccumulation of the abscess fluid given ongoing pain in the area. Continue meropenem. #Pneumonia: small area of pneumonia, possible cause of fevers. However, would be odd to develop on meropenem unless viral. Procal only mildly elevated. Recs: -CT abdo/pelvis with contrast for abscess -Stopped doxycycline and Augmentin -Continue meropenem Thank you for the consult, we will continue to follow. Bella Sandoval MD [facility] ([facility]) M: [phone] O: [phone] F: [phone]
--- NOTE | 2020-04-07 20:37 | Cat Scan Report ---
CT ABDOMEN AND PELVIS WITH CONTRAST HISTORY: Pelvic pain, history of perirectal abscess COMPARISON: Previous CT on 03/30/2020 TECHNIQUE: Routine abdominal and pelvic CT exam performed following intravenous contrast administrat ion. The patient received 100 mL of IV Omnipaque 300. All CT scans at this location are performed usi ng CT dose reduction for ALARA by means of automated exposure control. FINDINGS: CT ABDOMEN: Lung Bases: There are tiny bilateral pleural effusions that have developed since the prior study. Liver: No significant abnormality. Biliary: No significant abnormality. Spleen: No significant abnormality. Unenlarged. Pancreas: No significant abnormality. Adrenals: No significant abnormality. Kidneys: No significant abnormality. Lymphatics: No lymphadenopathy. Vasculature: No significant abnormality. 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 In t he left due to a fold, there is a fluid and air collection measuring 3.1 cm. This has progressed sinc e the prior exam. There is stable perirectal inflammation as well. CT PELVIC: : No significant abnormality. Lymphatics: No lymphadenopathy. Osseous Structures: No aggressive appearing osseous lesions. Additional Findings: None IMPRESSION: 1. Interval development of 3.1 cm abscess in the left gluteal fold adjacent to the known perirectal f istula. 2. Largely stable perirectal inflammatory change. 3. Interval development of tiny bilateral pleural effusions. Signer Name: Manny Nayak MD Signed: 04/07/2020 8:33 PM Workstation Name: [id number]
[2020-04-07] MEDS ORDERED: INSULIN GLARGINE 100 UNITS/ML SUB-Q SCH (22:00)
[2020-04-08] MEDS ORDERED: SODIUM CHLORIDE 0.9% 250ML 250 ML IV ONE (01:44)
[2020-04-08] MEDS: IBUPROFEN 800 MG TAB PO PRN ×2 (02:24→21:45)
[2020-04-08] MEDS: MEROPENEM/NS 500 MG/50 ML 500 MG/50 ML BAG IV SCH ×2 (06:41)
[2020-04-08] MEDS: oxyCODONE /ACETAMINOPHEN 5-325MG TAB PO PRN ×3 (11:08→21:52)
[2020-04-08] MEDS: FAMOTIDINE 20 MG TAB PO SCH ×2 (11:08→21:52)
[2020-04-08] MEDS: TAMSULOSIN 0.4 MG CAP PO SCH (11:08)
[2020-04-08] MEDS: POTASSIUM CHLORIDE ER 20 MEQ TAB PO SCH ×2 (11:08→21:53)
[2020-04-08] MEDS: INSULIN NPH/REGULAR 70/30 INJ SUB-Q SCH (11:09)
[2020-04-08] MEDS: CALCIUM CARB/VIT D3/MINERALS 600 MG/800 UNITS TAB PO SCH ×2 (11:09→21:53)
[2020-04-08] MEDS: INSULIN LISPRO 100 UNIT/ML SUB-Q SCH ×3 (12:17→21:47)
--- NOTE | 2020-04-08 15:02 | Progress Note ---
Assessment and Plan Cultures: Blood culture 04/05/2020 pending A/P: 34 yo M PMHx perirectal abscess admitted with fevers and pain in the perirectal area. #Acute sepsis: present with fevers and tachycardia. Unclear source, pneumonia vs abscess recurrence. I am unclear as to why the patient was discharged on doxy/Augmentin as well as the meropenem as it is not in Dr. Gaona's note, and much of the antibiotic spectrum is the same, and both drugs are clearly i neffective against an ESBL. #Perirectal abscess: recommend CT of the abdomen/pelvis to ensure no r eaccumulation of the abscess fluid given ongoing pain in the area. Continue meropenem. #Pneumonia: small area of pneumonia, possible cause of fevers. However, would be odd to develop on meropenem unless viral. Procal only mildly elevated. Recs: -Consulted general surgery for evaluation of gluteal abscess -Continue meropenem Thank you for the consult, we will continue to follow. Bella Sandoval MD [facility] ([facility]) M: [phone] O: [phone] F: [phone] Subjective Date of service: 04/08/20 Principal diagnosis: Pneumonia Interval history: Afebrile, normal white count. Imaging press reviewed: CTAP: Development of new abscess on gluteal fold next to perirectal fistula Objective - Exam Narrative Exam: Physical Exam: Constitutional: Alert, cooperative. No acute distress Head, Ears, Nose: Normocephalic, atraumatic Eyes: Conjunctivae/corneas clear. No icterus. No ptosis. Neck: Supple, no meningeal signs Oral: dentition fair, no thrush Cardiovascular: S1, S2 normal. Respiratory: Good air entry, clear to auscultation bilaterally GI: Soft, non-tender; bowel sounds normal. No peritoneal signs. Musculoskeletal: No pedal edema, no cyanosis. Skin: No rash or abscess Hem/Lymphatic: No palpable cervical or supraclavicular nodes. No lymphangitis Psych: Mood ok. Affect normal Neurological: Awake, alert, oriented. No gross abnormality - Constitutional Vitals: Vital Signs Temp Pulse Resp BP Pulse Ox 97.8 F 75 19 95/61 94 04/08/20 11:07 04/08/20 11:07 04/08/20 11:07 04/08/20 11:07 04/08/20 11:07 Temperature -Last 24 Hours Temperature 97.8 F Temperature 97.0 F Temperature 98.8 F Temperature 98.7 F - Labs CBC & Chem 7: 04/06/20 05:58 04/06/20 05:58 Labs: Abnormal lab results 04/07/20 04/07/20 04/08/20 Range/Units 16:22 21:41 11:26 POC Glucose 300 H 340 H 379 H (70-105)
[2020-04-08] MEDS: MEROPENEM/NS 1 GRAM/100 ML 1 GRAM/100 ML BAG IV SCH ×2 (15:18→21:53)
--- NOTE | 2020-04-08 15:19 | Progress Note ---
Assessment and Plan - Patient Problems (1) Left lower lobe pneumonia Current Visit: Yes Status: Acute Plan to address problem: Patient on appropriate abx COnt Meropenem. Reason for admitting is rule out COvid reated pna If [place] virus negative --Patient maybe discharged on same abx Isolation tillo then (2) Perirectal abscess Current Visit: Yes Status: Acute Plan to address problem: Cont Meropenem and Augmentin (3) IDDM (insulin dependent diabetes mellitus) Current Visit: Yes Status: Chronic Plan to address problem: Recent last A1c 7.1 a week ago Cont Home Insulin and coverage (4) BPH (benign prostatic hyperplasia) Current Visit: Yes Status: Chronic Qualifiers: Lower urinary tract symptom presence: symptoms present Plan to address problem: Cont Flomax (5) Malnutrition Current Visit: Yes Status: Acute Qualifiers: Protein-calorie malnutrition severity: severe Plan to address problem: Albumin 2.1 Dietitian consult Dietary supplements ordered (6) Hypocalcemia Current Visit: Yes Status: Acute Plan to address problem: Supplemented (7) DVT prophylaxis Current Visit: No Status: Acute Plan to address problem: On Lovenox and GI prophylaxis Subjective Date of service: 04/08/20 Principal diagnosis: Pneumonia Interval history: Patient is 34 years old male with no significant past medical history except for his recent admission to the hospital for perirectal abscess. Patient was discharged from the hospital yesterday with a PICC line and an order for meropenem, Augmentin and doxycycline. Patient brought to the emergency room from home for evaluation of fever and pain to the local area. Patient had an I&D done by Dr. Aleman on March 31. Patient denies any cough, shortness of breath, runny nose congestion. Patient also denied any urinary symptoms. Sepsis protocol initiated and patient received a dose of meropenem, normal saline and, Tylenol and morphine. Work up in ED revealed L medial pneumonia Patient on appropriate abx. Objective - Constitutional Vitals: Vital Signs - 12hr 04/08/20 04/08/20 06:07 11:07 Temperature 97.0 F L 97.8 F Pulse Rate 64 75 Respiratory 16 19 Rate Blood Pressure 96/56 95/61 O2 Sat by Pulse 99 94 Oximetry General appearance: Present: no acute distress, well-nourished - EENT Eyes: PERRL, EOM intact ENT: hearing intact, clear oral mucosa Ears: bilateral: normal - Neck Neck: supple, normal ROM - Respiratory Respiratory effort: normal Respiratory: bilateral: CTA - Breasts Breasts: normal - Cardiovascular Rhythm: regular Heart Sounds: Present: S1 & S2. Absent: gallop, rub Extremities: pulses intact, No edema, normal color, Full ROM - Gastrointestinal General gastrointestinal: Present: soft, non-tender, non-distended, normal bowel sounds - Genitourinary Male genitourinary: normal - Integumentary Integumentary: clear, warm, dry - Musculoskeletal Musculoskeletal: 1, strength equal bilaterally - Neurologic Neurologic: moves all extremities - Psychiatric Psychiatric: memory intact, appropriate mood/affect, intact judgment & insight - Labs CBC & Chem 7: 04/06/20 05:58 04/06/20 05:58 Labs: Abnormal lab results 04/07/20 04/07/20 04/08/20 Range/Units 16:22 21:41 11:26 POC Glucose 300 H 340 H 379 H (70-105)
[2020-04-08] MEDS: INSULIN GLARGINE 100 UNITS/ML SUB-Q SCH (21:46)
[2020-04-09] MEDS: MEROPENEM/NS 1 GRAM/100 ML 1 GRAM/100 ML BAG IV SCH ×3 (06:35→21:58)
[2020-04-09] MEDS: INSULIN LISPRO 100 UNIT/ML SUB-Q SCH ×4 (08:41→22:00)
[2020-04-09] MEDS: oxyCODONE /ACETAMINOPHEN 5-325MG TAB PO PRN ×3 (08:48→22:00)
--- NOTE | 2020-04-09 09:56 | Consultation ---
History of Present Illness Consult date: 04/09/20 Reason for consult: wound care Requesting physician: MITCHEL TAYLOR Chief complaint: continued pain - History of present illness History of present illness: 34yo M who is well-known to our service as we recently performed an exam under anesthesia, seton placement, incision and drainage of perianal abscesses. He returns to the hospital due to excessive pain. He reports that the pain is unchanged from when he left the hospital. However, he was only discharged with ibuprofen. That was not enough to control the pain. Therefore he returned. There was also a report of a fever. He has been afebrile while in the hospital. He denies any other complaints. He reports he was only able to do the sitz baths once. He has not done anything else to keep the area clean. He reports that there is still drainage. We are asked to see him again to evaluate for any new areas of infection. Past History Past Medical History: diabetes Past Surgical History: Other (Perianal EUA, seton placement, I&D) Social history: smoking. denies: alcohol abuse, prescription drug abuse, IV drug use Family history: no significant family history Medications and Allergies Allergies Allergy/AdvReac Type Severity Reaction Status Date / Time Sulfa (Sulfonamide Allergy Rash Verified 03/30/20 19:19 Antibiotics) Home Medications Medication Instructions Recorded Confirmed Last Taken Type Balsalazide Disodium [Colazal] 750 mg PO TID 03/31/20 04/05/20 Unknown History Insulin Detemir [Levemir VIAL] 25 unit SQ QHS 03/31/20 04/05/20 Unknown History Insulin NPH/Regular [NovoLIN 70/30] 4 unit SUB-Q BID 03/31/20 04/05/20 Unknown History OLANZapine [Zyprexa] 5 mg PO DAILY 03/31/20 04/05/20 Unknown History Potassium Chloride [K-Dur] 10 meq PO BID 03/31/20 04/05/20 Unknown History Tamsulosin [Flomax] 0.4 mg PO QDAY 03/31/20 04/05/20 Unknown History ursodioL [Ursodiol] 300 mg PO BID 03/31/20 04/05/20 Unknown History Amoxicillin/K Clav Tab [Augmentin 1 tab PO Q12HR #28 tab 04/01/20 04/05/20 Unknown Rx 875 mg] Doxycycline Hyclate [Doxycycline 100 mg PO Q12HR #28 tab 04/01/20 04/05/20 Unknown Rx Hyclate TAB] Ibuprofen [Motrin 800 MG tab] 800 mg PO Q8HR PRN #20 tablet 04/01/20 04/05/20 Unknown Rx Acetaminophen [Acetaminophen TAB] 650 mg PO Q4H PRN tablet 04/04/20 04/05/20 Unknown Rx Active Meds: Active Medications Acetaminophen (Tylenol) 650 mg PO Q4H PRN PRN Reason: Pain MILD(1-3)/Fever >100.5/VO Last Admin: 04/06/20 17:26 Dose: 650 mg Documented by: Famotidine (Pepcid) 20 mg PO BID [facility] Last Admin: 04/08/20 21:52 Dose: 20 mg Documented by: Hydromorphone HCl (Dilaudid) 0.5 mg IV Q3H PRN PRN Reason: Pain , Severe (7-10) Last Admin: 04/06/20 20:50 Dose: 0.5 mg Documented by: MEROPENEM/NS 1 GRAM/100 ML (Merrem/Ns 1 Gram/100 Ml) 1 gram in 100 mls @ 100 mls/hr IV Q8HR [facility] Last Admin: 04/09/20 06:35 Dose: 100 mls/hr Documented by: Ibuprofen (Ibuprofen) 800 mg PO Q8HR PRN PRN Reason: Pain, Moderate (4-6) Last Admin: 04/08/20 21:45 Dose: 800 mg Documented by: [facility]ulin [facility]us) [facility] Last Admin: 04/08/20 21:46 Dose: 40 units Documented by: Insulin Human Lispro (Humalog) 0 unit SUB-Q [facility]; Protocol Last Admin: 04/09/20 08:41 Dose: Not Given Documented by: Metoclopramide HCl (Reglan) 10 mg IV Q6H PRN PRN Reason: Nausea And Vomiting Miscellaneous Medication (Balsalazide Disodium [Colazal]) 750 mg PO TID [facility] Miscellaneous Medication (Ursodiol [Ursodiol]) 300 mg PO BID [facility] Multivitamins/Minerals (Caltrate Plus) 1 each PO BID [facility] Last Admin: 04/08/20 21:53 Dose: 1 each Documented by: Olanzapine (Zyprexa) 5 mg PO DAILY [facility] Last Admin: 04/08/20 12:16 Dose: 5 mg Documented by: Ondansetron HCl (Zofran) 4 mg IV Q8H PRN PRN Reason: Nausea And Vomiting Oxycodone/Acetaminophen (Percocet 5/325) 1 tab PO Q6H PRN PRN Reason: Pain, Moderate (4-6) Last Admin: 04/09/20 08:48 Dose: 1 tab Documented by: Potassium Chloride (K-Dur) 10 meq PO BID [facility] Last Admin: 04/08/20 21:53 Dose: 10 meq Documented by: Sodium Chloride (Sodium Chloride Flush Syringe 10 Ml) 10 ml IV BID [facility] Last Admin: 04/08/20 21:53 Dose: 10 ml Documented by: Sodium Chloride (Sodium Chloride Flush Syringe 10 Ml) 10 ml IV PRN PRN PRN Reason: LINE FLUSH Tamsulosin HCl (Flomax) 0.4 mg PO QDAY [facility] Last Admin: 04/08/20 11:08 Dose: 0.4 mg Documented by: Review of Systems - Constitutional fever, chronic pain, no chills - Cardiovascular no chest pain, no shortness of breath - Respiratory no cough - Gastrointestinal no abdominal pain, no nausea, no vomiting - Integumentary redness, wounds Exam Vital Signs Temp Pulse Resp BP Pulse Ox 103.2 F H 125 H 12 127/83 97 04/05/20 17:27 04/05/20 17:27 04/05/20 17:27 04/05/20 17:27 04/05/20 17:27 - General physical appearance Positive: no distress, no pain, other (appears tired) - Eyes Positive: normal occular movement - Respiratory Positive: normal expansion, normal respiratory effort - Rectum Rectum: other (moderate amount of drainage on the diaper and on the perineum. Seton in place. [place] drain has come out. +firm, tender area about 4cm in diameter in left buttock. No purulent drainage. +mucus drainage from right buttock) - Neurologic Neurologic: alert and oriented to time, place and person - Psychiatric Psychiatric: appropriate mood/affect, cooperative Results - Labs 04/06/20 05:58 04/06/20 05:58 Abnormal lab results 04/08/20 04/08/20 04/08/20 Range/Units 11:26 16:52 21:21 POC Glucose 379 H 191 H 268 H (70-105) 04/09/20 Range/Units 07:41 POC Glucose 107 H (70-105) - Imaging CT scan - abdomen: report reviewed, image reviewed CT scan - pelvis: report reviewed, image reviewed Assessment and Plan - Patient Problems (1) Perirectal abscess Current Visit: Yes Status: Acute Plan to address problem: Pt stable. Overall, his situation is about the same compared to when he was discharged. He is not keeping the area clean and dry. The excess moisture against his skin is causing irritation and redness. I am not sure if it is a lack of understanding or lack of initiative to try and keep the area clean and dry. We discussed last time the importance of changing the pads and washing the area frequently to help heal the area. Again, I found him sitting in a wet diaper. He also does not understand or remember that we talked about the drainage from the wounds continuing for a while until the wounds heal. He expressed concern when we met again today that the wounds are still draining. He also has poorly controlled blood sugars again. Unfortunately, the [place] drain did not stay in. We will have to do regular, daily dressing changes which will be uncomfortable but will help clean the area. There is a new firm area in the left buttock that most likely is related to the initial fistula site. On CT scan there appears to be a small connection. Our plan will be to go back to the operating room tomorrow to thoroughly washout the wounds and examine all the areas again under anesthesia. I will make sure there are no new areas that need to be drained. I will examine the left buttock area to see if it communicates with the previously identified fistula tract. I have requested the wound care nurse to see the patient. We will need to begin dressing changes and see if we can enroll him in the wound clinic. These wounds will require many weeks to months for healing. I fear it will take much longer as he is not very involved in his own care. He is on the OR schedule for tomorrow. We will follow along. Please call with any questions. Time=30min
[2020-04-09] MEDS: TAMSULOSIN 0.4 MG CAP PO SCH (11:43)
[2020-04-09] MEDS: FAMOTIDINE 20 MG TAB PO SCH ×2 (11:44→22:00)
[2020-04-09] MEDS: CALCIUM CARB/VIT D3/MINERALS 600 MG/800 UNITS TAB PO SCH ×2 (11:44→22:00)
[2020-04-09] MEDS: POTASSIUM CHLORIDE ER 20 MEQ TAB PO SCH ×2 (11:45→21:59)
[2020-04-09] MEDS: IBUPROFEN 800 MG TAB PO PRN (12:21)
--- NOTE | 2020-04-09 14:49 | Progress Note ---
Assessment and Plan Cultures: Blood culture 04/05/2020 pending A/P: 34 yo M PMHx perirectal abscess admitted with fevers and pain in the perirectal area. #Acute sepsis: present with fevers and tachycardia. Unclear source, pneumonia vs abscess recurrence. I am unclear as to why the patient was discharged on doxy/Augmentin as well as the meropenem as it is not in Dr. Gaona's note, and much of the antibiotic spectrum is the same, and both drugs are clearly i neffective against an ESBL. 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 continue meropenem. #Pneumonia: small area of pneumonia, possible cause of fevers. However, would be odd to develop on meropenem unless viral. Procal only mildly elevated. Recs: -Consulted general surgery for evaluation of gluteal abscess, pending evaluation. -Continue meropenem Thank you for the consult, we will continue to follow. Bella Sandoval MD [facility] ([facility]) M: [phone] O: [phone] F: [phone] Subjective Date of service: 04/09/20 Principal diagnosis: Pneumonia Interval history: Afebrile, currently receiving meropenem. Objective - Exam Narrative Exam: Physical Exam: Constitutional: Alert, cooperative. No acute distress Head, Ears, Nose: Normocephalic, atraumatic Eyes: Conjunctivae/corneas clear. Oral: dentition fair, no thrush Cardiovascular: S1, S2 normal. Respiratory: Good air entry, clear to auscultation bilaterally GI: Soft, non-tender; bowel sounds normal. No peritoneal signs. Musculoskeletal: No pedal edema, no cyanosis. Skin: No rash or abscess Hem/Lymphatic: No palpable cervical or supraclavicular nodes. No lymphangitis Psych: Mood ok. Affect normal Neurological: Awake, alert, oriented. No gross abnormality - Constitutional Vitals: Vital Signs Temp Pulse Resp BP Pulse Ox 97.8 F 113 H 16 100/60 99 04/09/20 12:06 04/09/20 12:06 04/09/20 12:06 04/09/20 12:06 04/09/20 12:06 Temperature -Last 24 Hours Temperature 97.8 F Temperature 98.1 F Temperature 99.5 F Temperature 98.6 F - Labs CBC & Chem 7: 04/06/20 05:58 04/06/20 05:58 Labs: Abnormal lab results 04/08/20 04/08/20 04/09/20 Range/Units 16:52 21:21 07:41 POC Glucose 191 H 268 H 107 H (70-105) 04/09/20 Range/Units 12:19 POC Glucose 262 H (70-105)
[2020-04-09] MEDS: INSULIN GLARGINE 100 UNITS/ML SUB-Q SCH (21:58)
[2020-04-10] MEDS ORDERED: KETOROLAC 30 MG/1 ML INJ IV ONE (05:33)
[2020-04-10] MEDS: MEROPENEM/NS 1 GRAM/100 ML 1 GRAM/100 ML BAG IV SCH ×3 (05:40→23:18)
--- NOTE | 2020-04-10 07:18 | Progress Note ---
Assessment and Plan - Patient Problems (1) Left lower lobe pneumonia Current Visit: Yes Status: Acute Plan to address problem: Patient on appropriate abx COnt Meropenem. Reason for admitting is rule out COvid reated pna If [place] virus negative --Patient maybe discharged on same abx Isolation tillo then (2) Perirectal abscess Current Visit: Yes Status: Acute Plan to address problem: Cont Meropenem For OR tomorrow for further eval of the extent of wound (3) IDDM (insulin dependent diabetes mellitus) Current Visit: Yes Status: Chronic Plan to address problem: Recent last A1c 7.1 a week ago Cont Home Insulin and coverage (4) BPH (benign prostatic hyperplasia) Current Visit: Yes Status: Chronic Qualifiers: Lower urinary tract symptom presence: symptoms present Plan to address problem: Cont Flomax (5) Malnutrition Current Visit: Yes Status: Acute Qualifiers: Protein-calorie malnutrition severity: severe Plan to address problem: Albumin 2.1 Dietitian consult Dietary supplements ordered (6) Hypocalcemia Current Visit: Yes Status: Acute Plan to address problem: Supplemented (7) DVT prophylaxis Current Visit: No Status: Acute Plan to address problem: On Lovenox and GI prophylaxis Subjective Date of service: 04/09/20 Principal diagnosis: Pneumonia Interval history: Patient is 34 years old male with no significant past medical history except for his recent admission to the hospital for perirectal abscess. Patient was discharged from the hospital yesterday with a PICC line and an order for meropenem, Augmentin and doxycycline. Patient brought to the emergency room from home for evaluation of fever and pain to the local area. Patient had an I&D done by Dr. Aleman on March 31. Patient denies any cough, shortness of breath, runny nose congestion. Patient also denied any urinary symptoms. Sepsis protocol initiated and patient received a dose of meropenem, normal saline and, Tylenol and morphine. Work up in ED revealed L medial pneumonia Patient on appropriate abx. ID and Gen surgery consulted Objective - Constitutional Vitals: Vital Signs - 12hr 04/09/20 04/10/20 21:47 05:20 Temperature 98.3 F 98.4 F Pulse Rate 100 H 103 H Respiratory 18 18 Rate Blood Pressure 98/66 97/67 O2 Sat by Pulse 97 97 Oximetry General appearance: Present: no acute distress, well-nourished - EENT Eyes: PERRL, EOM intact ENT: hearing intact, clear oral mucosa Ears: bilateral: normal - Neck Neck: supple, normal ROM - Respiratory Respiratory effort: normal Respiratory: bilateral: CTA - Breasts Breasts: normal - Cardiovascular Rhythm: regular Heart Sounds: Present: S1 & S2. Absent: gallop, rub Extremities: pulses intact, No edema, normal color, Full ROM, abnormal (Perirectal abscess ) - Gastrointestinal General gastrointestinal: Present: soft, non-tender, non-distended, normal bowel sounds - Genitourinary Male genitourinary: normal - Integumentary Integumentary: clear, warm, dry - Musculoskeletal Musculoskeletal: 1, strength equal bilaterally - Neurologic Neurologic: moves all extremities - Psychiatric Psychiatric: memory intact, appropriate mood/affect, intact judgment & insight - Labs CBC & Chem 7: 04/06/20 05:58 04/06/20 05:58 Labs: Abnormal lab results 04/09/20 04/09/20 Range/Units 07:41 12:19 POC Glucose 107 H 262 H (70-105)
--- NOTE | 2020-04-10 09:07 | Progress Note ---
Assessment and Plan - Patient Problems (1) Perirectal abscess Current Visit: Yes Status: Acute Plan to address problem: Pt stable. Plan for surgery today to washout wounds and to examine for any new areas of infection. I reviewed the CT in detail with Dr. Wilson from radiology. The possible new area in the left buttock does appear to communicate with our original abscess cavity on the left side. It is possible there is air in there now from our probing during his last surgery. All points of air were present previously just in a slightly increased amount. This too is most likely related from the original surgery. We discussed the area near the base of the scrotum. It appears to not involve the scrotum as further images of the CT show a normal scrotum as well as penis. There is no evidence to suggest a Evans's gangrene. Patient acknowledges understanding of the plan today. He knows that he must remain n.p.o. until after surgery. We will follow along. Please call with any questions. Time=10min Subjective Date of service: 04/10/20 Patient Reports: Positive: no new complaints, still having pain Objective Vital Signs - 12hr 04/09/20 04/10/20 21:47 05:20 Temperature 98.3 F 98.4 F Pulse Rate 100 H 103 H Respiratory 18 18 Rate Blood Pressure 98/66 97/67 O2 Sat by Pulse 97 97 Oximetry - General physical appearance no distress, no pain - Eyes normal occular movement - Respiratory normal expansion, normal respiratory effort - Psychiatric oriented to time, oriented to person, oriented to place, speech is normal, memory intact - Labs 04/06/20 05:58 04/06/20 05:58
--- NOTE | 2020-04-10 10:51 | Progress Note ---
Assessment and Plan Cultures: Blood culture 04/05/2020 pending A/P: 34 yo M PMHx perirectal abscess admitted with fevers and pain in the perirectal area. #Acute sepsis: present with fevers and tachycardia. Unclear source, pneumonia vs abscess recurrence. I am unclear as to why the patient was discharged on doxy/Augmentin as well as the meropenem as it is not in Dr. Gaona's note, and much of the antibiotic spectrum is the same, and both drugs are clearly i neffective against an ESBL. 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 continue meropenem. #Pneumonia: small area of pneumonia, possible cause of fevers. However, would be odd to develop on meropenem unless viral. Procal only mildly elevated. Recs: -Patient to return to the OR today. If any new purulence encountered request new cultures. -Given his poor compliance (likely through poor understanding) with wound care, some concern of how compliant he is with the IV antibiotics. -Continue meropenem Thank you for the consult, we will continue to follow. Bella Sandoval MD [facility], [place] ([facility]) M: [phone] O: [phone] F: [phone] Subjective Date of service: 04/10/20 Principal diagnosis: Pneumonia Interval history: No new issues. Patient to return to the OR today for wound exploration. Objective - Exam Narrative Exam: Physical Exam: Constitutional: Alert, cooperative. No acute distress Head, Ears, Nose: Normocephalic, atraumatic Eyes: Conjunctivae/corneas clear. Oral: dentition fair, no thrush Cardiovascular: S1, S2 normal. Respiratory: Good air entry, clear to auscultation bilaterally GI: Soft, non-tender; bowel sounds normal. No peritoneal signs. Musculoskeletal: No pedal edema, no cyanosis. Skin: No rash or abscess Hem/Lymphatic: No palpable cervical or supraclavicular nodes. Psych: Mood ok. Affect normal Neurological: Awake, alert, oriented. No gross abnormality - Constitutional Vitals: Vital Signs Temp Pulse Resp BP Pulse Ox 98.4 F 103 H 18 97/67 97 04/10/20 05:20 04/10/20 05:20 06/11/20 05:20 04/10/20 05:20 04/10/20 05:20 Temperature -Last 24 Hours Temperature 98.4 F Temperature 98.3 F Temperature 97.3 F Temperature 97.8 F - Labs CBC & Chem 7: 04/06/20 05:58 04/06/20 05:58 Labs: Abnormal lab results 04/09/20 04/09/20 04/09/20 Range/Units 12:19 17:09 22:03 POC Glucose 262 H 257 H 312 H (70-105) 04/10/20 Range/Units 08:19 POC Glucose 146 H (70-105)
[2020-04-10] MEDS: INSULIN LISPRO 100 UNIT/ML SUB-Q SCH ×2 (11:57→23:22)
[2020-04-10] MEDS: POTASSIUM CHLORIDE ER 20 MEQ TAB PO SCH ×2 (11:58→23:20)
[2020-04-10] MEDS: TAMSULOSIN 0.4 MG CAP PO SCH (11:58)
[2020-04-10] MEDS: FAMOTIDINE 20 MG TAB PO SCH ×2 (11:58→23:19)
[2020-04-10] MEDS: CALCIUM CARB/VIT D3/MINERALS 600 MG/800 UNITS TAB PO SCH ×2 (11:58→23:19)
[2020-04-10] MEDS ORDERED: SODIUM CHLORIDE 0.9% 1000 ML 1,000 ML IV SCH (12:00)
[2020-04-10] MEDS: HYDROmorphone 1 MG/1 ML INJ IV PRN ×3 (12:08→18:42)
[2020-04-10] MEDS: NICOTINE 14 MG/24 HR PATCH TD SCH (13:11)
--- NOTE | 2020-04-10 14:23 | Progress Note ---
Assessment and Plan Assessment and plan: Patient is 34 years old male with no significant past medical history except for his recent admission to the hospital for perirectal abscess. Patient was discharged from the hospital yesterday with a PICC line and an order for meropenem, Augmentin and doxycycline. Patient brought to the emergency room from home for evaluation of fever and pain to the local area. Patient had an I&D done by Dr. Aleman on March 31. Patient denies any cough, shortness of breath, runny nose congestion. Patient also denied any urinary symptoms. Sepsis protocol initiated and patient received a dose of meropenem, normal saline and, Tylenol and morphine. Work up in ED revealed L medial pneumonia Patient on appropriate abx. (1) Left lower lobe pneumonia Current Visit: Yes Status: Acute Plan to address problem: Patient on appropriate abx COnt Meropenem. Reason for admitting is rule out COvid reated pna If [place] virus negative --Patient maybe discharged on same abx Isolation tillo then (2) Perirectal abscess Current Visit: Yes Status: Acute Plan to address problem: Cont Meropenem For IR for tODAY or further eval of the extent of wound (3) IDDM (insulin dependent diabetes mellitus) Current Visit: Yes Status: Chronic Plan to address problem: Recent last A1c 7.1 a week ago Cont Home Insulin and coverage (4) BPH (benign prostatic hyperplasia) Current Visit: Yes Status: Chronic Qualifiers: Lower urinary tract symptom presence: symptoms present Plan to address problem: Cont Flomax (5) Malnutrition Current Visit: Yes Status: Acute Qualifiers: Protein-calorie malnutrition severity: severe Plan to address problem: Albumin 2.1 Dietitian consult Dietary supplements ordered (6) Hypocalcemia Current Visit: Yes Status: Acute Plan to address problem: Supplemented (7) DVT prophylaxis Current Visit: No Status: Acute Plan to address problem: On Lovenox and GI prophylaxis History Interval history: Patient seen and examined this morning, later in afternoon was noted withleann wilmer Hospitalist Physical - Physical exam Narrative exam: General appearance: Present: no acute distress, well-nourished - EENT Eyes: PERRL, EOM intact ENT: hearing intact, clear oral mucosa Ears: bilateral: normal - Neck Neck: supple, normal ROM - Respiratory Respiratory effort: normal Respiratory: bilateral: CTA - Breasts Breasts: normal - Cardiovascular Rhythm: regular Heart Sounds: Present: S1 & S2. Absent: gallop, rub Extremities: pulses intact, No edema, normal color, Full ROM, abnormal (Perirectal abscess ) - Gastrointestinal General gastrointestinal: Present: soft, non-tender, non-distended, normal bowel sounds - Genitourinary Male genitourinary: normal - Integumentary Integumentary: clear, warm, dry - Musculoskeletal Musculoskeletal: 1, strength equal bilaterally - Neurologic - Constitutional Vitals: Temp Pulse Resp BP Pulse Ox 97.0 F L 111 H 18 86/55 92 04/10/20 11:41 04/10/20 11:41 04/10/20 11:41 04/10/20 11:41 04/10/20 11:41 General appearance: Present: no acute distress, well-nourished Results - Labs CBC & Chem 7: 04/06/20 05:58 04/06/20 05:58 Labs: Laboratory Last Values WBC 5.0 K/mm3 (4.5-11.0) 04/06/20 05:58 RBC 3.28 M/mm3 (3.65-5.03) L 04/06/20 05:58 Hgb 9.4 gm/dl (11.8-15.2) L 04/06/20 05:58 Hct 29.2 % (35.5-45.6) L 04/06/20 05:58 MCV 89 fl (84-94) 04/06/20 05:58 MCH 29 pg (28-32) 04/06/20 05:58 MCHC 32 % (32-34) 04/06/20 05:58 RDW 18.5 % (13.2-15.2) H 04/06/20 05:58 Plt Count 257 K/mm3 (140-440) 04/06/20 05:58 Lymph % (Auto) 28.0 % (13.4-35.0) 04/06/20 05:58 [place] % (Auto) 15.7 % (0.0-7.3) H 04/06/20 05:58 Eos % (Auto) 0.6 % (0.0-4.3) 04/06/20 05:58 Baso % (Auto) 0.2 % (0.0-1.8) 04/06/20 05:58 Lymph # 1.4 K/mm3 (1.2-5.4) 04/06/20 05:58 [place] # 0.8 K/mm3 (0.0-0.8) 04/06/20 05:58 Eos # 0.0 K/mm3 (0.0-0.4) 04/06/20 05:58 Baso # 0.0 K/mm3 (0.0-0.1) 04/06/20 05:58 Add Manual Diff Complete 04/05/20 17:58 Total Counted 100 04/05/20 17:58 Seg Neutrophils % 55.5 % (40.0-70.0) 04/06/20 05:58 Seg Neuts % (Manual) 67.0 % (40.0-70.0) 04/05/20 17:58 Band Neutrophils % 0 % 04/05/20 17:58 Lymphocytes % (Manual) 21.0 % (13.4-35.0) 04/05/20 17:58 Reactive Lymphs % (Man) 0 % 04/05/20 17:58 Monocytes % (Manual) 11.0 % (0.0-7.3) H 04/05/20 17:58 Eosinophils % (Manual) 1.0 % (0.0-4.3) 04/05/20 17:58 Basophils % (Manual) 0 % (0.0-1.8) 04/05/20 17:58 Metamyelocytes % 0 % 04/05/20 17:58 Myelocytes % 0 % 04/05/20 17:58 Promyelocytes % 0 % 04/05/20 17:58 Blast Cells % 0 % 04/05/20 17:58 Nucleated RBC % Not Reportable 04/05/20 17:58 Seg Neutrophils # 2.8 K/mm3 (1.8-7.7) 04/06/20 05:58 Seg Neutrophils # Man 3.1 K/mm3 (1.8-7.7) 04/05/20 17:58 Band Neutrophils # 0.0 K/mm3 04/05/20 17:58 Lymphocytes # (Manual) 1.0 K/mm3 (1.2-5.4) L 04/05/20 17:58 Abs React Lymphs (Man) 0.0 K/mm3 04/05/20 17:58 Monocytes # (Manual) 0.5 K/mm3 (0.0-0.8) 04/05/20 17:58 Eosinophils # (Manual) 0.0 K/mm3 (0.0-0.4) 04/05/20 17:58 Basophils # (Manual) 0.0 K/mm3 (0.0-0.1) 04/05/20 17:58 Metamyelocytes # 0.0 K/mm3 04/05/20 17:58 Myelocytes # 0.0 K/mm3 04/05/20 17:58 Promyelocytes # 0.0 K/mm3 04/05/20 17:58 Blast Cells # 0.0 K/mm3 04/05/20 17:58 WBC Morphology Not Reportable 04/05/20 17:58 Hypersegmented Neuts Not Reportable 04/05/20 17:58 Hyposegmented Neuts Not Reportable 04/05/20 17:58 Hypogranular Neuts Not Reportable 04/05/20 17:58 Smudge Cells Not Reportable 04/05/20 17:58 Toxic Granulation Not Reportable 04/05/20 17:58 Toxic Vacuolation Not Reportable 04/05/20 17:58 Dohle Bodies Not Reportable 04/05/20 17:58 Pelger-Huet Anomaly Not Reportable 04/05/20 17:58 Carlota Rods Not Reportable 04/05/20 17:58 Platelet Estimate Consistent w auto 04/05/20 17:58 Clumped Platelets Not Reportable 04/05/20 17:58 Plt Clumps, EDTA Not Reportable 04/05/20 17:58 Large Platelets Not Reportable 04/05/20 17:58 Giant Platelets Not Reportable 04/05/20 17:58 Platelet Satelliting Not Reportable 04/05/20 17:58 Plt Morphology Comment Not Reportable 04/05/20 17:58 RBC Morphology Not Reportable 04/05/20 17:58 Dimorphic RBCs Not Reportable 04/05/20 17:58 Polychromasia Few 04/05/20 17:58 Hypochromasia Not Reportable 04/05/20 17:58 Poikilocytosis Not Reportable 04/05/20 17:58 Anisocytosis Not Reportable 04/05/20 17:58 Microcytosis 1+ 04/05/20 17:58 Macrocytosis Not Reportable 04/05/20 17:58 Spherocytes Not Reportable 04/05/20 17:58 Pappenheimer Bodies Not Reportable 04/05/20 17:58 Sickle Cells Not Reportable 04/05/20 17:58 Target Cells Not Reportable 04/05/20 17:58 Tear Drop Cells Not Reportable 04/05/20 17:58 Ovalocytes Not Reportable 04/05/20 17:58 Stomatocytes Few 04/05/20 17:58 Helmet Cells Not Reportable 04/05/20 17:58 Lo-[place]ugden Bodies Not Reportable 04/05/20 17:58 [place] Rings Not Reportable 04/05/20 17:58 [place] Cells Not Reportable 04/05/20 17:58 Bite Cells Not Reportable 04/05/20 17:58 Crenated Cell Not Reportable 04/05/20 17:58 Elliptocytes Not Reportable 04/05/20 17:58 Acanthocytes (Spur) Not Reportable 04/05/20 17:58 Rouleaux Not Reportable 04/05/20 17:58 Hemoglobin C Crystals Not Reportable 04/05/20 17:58 Schistocytes Not Reportable 04/05/20 17:58 Malaria parasites Not Reportable 04/05/20 17:58 Bryon Bodies Not Reportable 04/05/20 17:58 Hem Pathologist Commnt No 04/05/20 17:58 D-Dimer 597.75 ng/mlDDU (0-234) H 04/05/20 18:58 Sodium 143 mmol/L (137-145) 04/06/20 05:58 Potassium 3.8 mmol/L (3.6-5.0) 04/06/20 05:58 Chloride 103.9 mmol/L (98-107) 04/06/20 05:58 Carbon Dioxide 26 mmol/L (22-30) 04/06/20 05:58 Anion Gap 17 mmol/L 04/06/20 05:58 BUN 5 mg/dL (9-20) L 04/06/20 05:58 Creatinine 0.7 mg/dL (0.8-1.5) L 04/06/20 05:58 Estimated GFR > 60 ml/min 04/06/20 05:58 BUN/Creatinine Ratio 7 % 04/06/20 05:58 Glucose 131 mg/dL (75-100) H 04/06/20 05:58 POC Glucose 138 (70-105) H 04/10/20 11:56 Lactic Acid 1.10 mmol/L (0.7-2.0) 04/05/20 17:58 Calcium 8.1 mg/dL (8.4-10.2) L 04/06/20 05:58 Ferritin 80.4 ng/mL (13.0-400.0) 04/05/20 18:58 Total Bilirubin 0.30 mg/dL (0.1-1.2) 04/06/20 05:58 AST 10 units/L (5-40) 04/06/20 05:58 ALT 8 units/L (7-56) 04/06/20 05:58 Alkaline Phosphatase 306 units/L (35-129) H 04/06/20 05:58 Lactate Dehydrogenase 155 units/L (91-180) 04/05/20 18:58 C-Reactive Protein 7.20 mg/dL (0.00-1.30) H 04/05/20 18:58 Total Protein 5.9 g/dL (6.3-8.2) L 04/06/20 05:58 Albumin 2.3 g/dL (3.9-5) L 04/06/20 05:58 Albumin/Globulin Ratio 0.6 % 04/06/20 05:58 Procalcitonin 0.23 ng/mL (<0.15) 04/05/20 18:58 Urine Color Straw (Yellow) 04/05/20 17:31 Urine Turbidity Clear (Clear) 04/05/20 17:31 Urine pH 8.0 (5.0-7.0) H 04/05/20 17:31 Ur Specific [place] 1.006 (1.003-1.030) 04/05/20 17:31 Urine Protein <15 mg/dl mg/dL (Negative) 04/05/20 17:31 Urine Glucose (UA) >=500 mg/dL (Negative) 04/05/20 17:31 Urine Ketones Neg mg/dL (Negative) 04/05/20 17:31 Urine Blood Neg (Negative) 04/05/20 17:31 Urine Nitrite Neg (Negative) 04/05/20 17:31 Urine Bilirubin Neg (Negative) 06/06/20 17:31 Urine Urobilinogen < 2.0 mg/dL (<2.0) 04/05/20 17:31 Ur Leukocyte Esterase Neg (Negative) 04/05/20 17:31 Urine WBC (Auto) 1.0 /HPF (0.0-6.0) 04/05/20 17:31 Urine RBC (Auto) 2.0 /HPF (0.0-6.0) 04/05/20 17:31 Nasal Screen MRSA (PCR) Negative (Negative) 04/06/20 02:25 Coronavirus (PCR) Negative (Negative) 04/06/20 09:10 Microbiology: Microbiology 04/05/20 17:58 Peripheral/Venous Blood Culture - Preliminary NO GROWTH AFTER 4 DAYS 04/05/20 17:58 Peripheral/Venous Blood Culture - Preliminary NO GROWTH AFTER 4 DAYS Ambrocio/IV: Voiding Method Urinal IV Catheter Type [Right Upper Mid-line arm] Active Medications - Current Medications Current Medications: Generic Name Dose Route Start Last Admin Trade Name Freq PRN Reason Stop Dose Admin Acetaminophen 650 mg 04/05/20 23:31 04/06/20 17:26 Tylenol PO 650 mg Q4H PRN Administration Pain MILD(1-3)/Fever >100.5/VO Famotidine 20 mg 04/06/20 22:00 04/10/20 11:58 Pepcid PO Not Given BID DMITRIY Hydromorphone HCl 0.5 mg 04/05/20 23:34 04/10/20 12:08 Dilaudid IV 0.5 mg Q3H PRN Administration Pain , Severe (7-10) MEROPENEM/NS 1 GRAM/100 ML 1 gram in 100 mls @ 100 mls/hr 04/08/20 14:00 04/10/20 13:11 Merrem/Ns 1 Gram/100 Ml IV 100 mls/hr Q8HR DMITRIY Administration Sodium Chloride 1,000 mls @ 125 mls/hr 04/10/20 13:00 Nacl 0.45% 1000 Ml IV DIRECT DMITRIY Sodium Chloride 1,000 mls @ 0 mls/hr 04/10/20 12:00 04/10/20 12:05 Nacl 0.9% 1000 Ml IV 04/11/20 12:01 999 mls/hr ONCE DMITRIY Administration As Directed Ibuprofen 800 mg 04/05/20 23:31 04/09/20 12:21 Ibuprofen PO 800 mg Q8HR PRN Administration Pain, Moderate (4-6) Insulin Glargine 40 units 04/08/20 15:17 04/09/20 21:58 Lantus SUB-Q 40 units QHS [facility] Administration Insulin Human Lispro 0 unit 04/08/20 11:30 04/10/20 11:57 Humalog SUB-Q Not Given [facility] Protocol Metoclopramide HCl 10 mg 04/05/20 23:34 Reglan IV Q6H PRN Nausea And Vomiting Miscellaneous Medication 750 mg 04/06/20 08:00 Balsalazide Disodium [Colazal] PO TID [facility] Miscellaneous Medication 300 mg 04/05/20 23:45 Ursodiol [Ursodiol] PO BID [facility] Morphine Sulfate 2 mg 04/10/20 12:30 Morphine IV Q6H PRN Pain, Moderate (4-6) Multivitamins/Minerals 1 each 04/06/20 10:00 04/10/20 11:58 Caltrate Plus PO Not Given BID [facility] Nicotine 14 mg 04/10/20 14:00 04/10/20 13:11 Habitrol TD 14 mg QDAY [facility] Administration Olanzapine 5 mg 04/06/20 10:00 04/10/20 12:13 Zyprexa PO Not Given DAILY [facility] Ondansetron HCl 4 mg 04/05/20 23:33 Zofran IV Q8H PRN Nausea And Vomiting Oxycodone/Acetaminophen 1 tab 04/05/20 23:34 04/09/20 22:00 Percocet 5/325 PO 1 tab Q6H PRN Administration Pain, Moderate (4-6) Potassium Chloride 10 meq 04/05/20 23:45 04/10/20 11:58 K-Dur PO Not Given BID [facility] Sodium Chloride 10 ml 04/06/20 10:00 04/10/20 12:12 Sodium Chloride Flush Syringe 10 Ml IV 10 ml BID [facility] Administration Sodium Chloride 10 ml 04/05/20 23:33 Sodium Chloride Flush Syringe 10 Ml IV PRN PRN LINE FLUSH Tamsulosin HCl 0.4 mg 04/06/20 10:00 04/10/20 11:58 Flomax PO Not Given QDAY [facility] Nutrition/Malnutrition Assess - Dietary Evaluation Nutrition/Malnutrition Findings: Nutrition Notes Start: 06/07/20 08:46 Freq: Status: Active Protocol: Document 04/09/20 12:45 LP (Rec: 04/09/20 12:52 LP [id number]) Nutrition Notes Initial or Follow up Reassessment Other Pertinent Diagnosis Fever, perirectal abscess, Pneu, R/O COVID-19 Current Diet Consistent CHO Labs/Tests BG 107 Pertinent Medications Reviewed Height 5 ft 8 in Weight 51.6 kg [place] Body Weight (kg) 70.00 BMI 17.3 Weight Status Underweight Subjective/Other Information Pt consuming 100% of meals and drinking supplements. Percent of energy/protein needs met: 100%/100% Burn Absent Trauma Absent GI Symptoms None Minimum of two criteria No physical signs of malnutrition #2 Nutrition Diagnosis No nutrition diagnosis at this time #1 Nutrition Diagnosis Predicted suboptimal energy intake As Evidenced by Signs and Symptoms Pt consuming 100% of meals. Diagnosis Progress(for reassessment Resolved documentation) Is patient on ventilator? No Is Patient Ambulatory and/or Out of Bed Yes REE-([facility]-ambulatory/OOB) [ 1866.150 [id number]] Calculation Used for Recommendations [facility] Additional Notes Protein needs are 56-67g (1-1. 2g/kg) Fluid needs are 1ml/kcal Nutrition Intervention Change Diet Order: Continue Add Supplement/Snack (indicate name/kcal Glucerna daily /protein ) Provides kCal: 220 Provides Protein (gm) 10 Goal #1 Meet at least 80% of kcal and protein needs Anticipated Discharge Needs: Consistent CHO diet and ONS as needed Follow-Up By: 04/15/20 Additional Comments Follow for stable intakes
[2020-04-10] MEDS ORDERED: LACTATED RINGERS 1,000 ML IV SCH (16:20)
[2020-04-10] MEDS ORDERED: fentaNYL 100 MCG/2 ML INJ IV ONE (16:33)
--- NOTE | 2020-04-10 16:35 | Anesthesia Consultation ---
Anesthesia Consult and Med Hx Date of service: 04/10/20 - Airway Anesthetic Teeth Evaluation: Poor ROM Head & Neck: Adequate Mental/Hyoid Distance: Adequate Mallampati Class: Class III Intubation Access Assessment: Probably Good (previous easy intubation) - Pulmonary Exam CTA: Yes - Cardiac Exam Cardiac Exam: RRR - Pre-Operative Health Status ASA Pre-Surgery Classification: ASA3 Proposed Anesthetic Plan: General - Pulmonary Hx Smoking: Yes Hx Respiratory Symptoms: Yes (occasional nonproductive cough, concern for PNA on CXR, COVID neg) SOB: No - Cardiovascular System Hx Hypertension: No Hx Heart Attack/AMI: No Hx Percutaneous Transluminal Coronary Angioplasty (PTCA): No Hx Cardia Arrhythmia: No - Central Nervous System CVA: No - Gastrointestinal Hx Gastroesophageal Reflux Disease: No - Endocrine Hx Renal Disease: No Hx Liver Disease: No Hx Insulin Dependent Diabetes: Yes - Hematic Hx Anemia: Yes - Other Systems Hx Obesity: No
--- NOTE | 2020-04-10 16:35 | Anesthesia Day of Surgery ---
Anesthesia Day of Surgery - Day of Surgery Patient Examined: Yes Patient H&P Reviewed: Yes Patient is NPO: Yes
[2020-04-10] MEDS ORDERED: LIDOCAINE (1%) 10 MG/1 ML VIAL 20 ML MDV ONE (16:46)
[2020-04-10] MEDS ORDERED: BUPIVACAINE/PF (0.5%) 5 MG/1 ML 30 ML VIAL INFILTRATI ONE ×3 (16:46→17:37)
[2020-04-10] MEDS ORDERED: fentaNYL 100 MCG/2 ML INJ ONE ×2 (16:59→17:37)
[2020-04-10] MEDS ORDERED: propofoL 200 MG/20 ML VIAL IV ONE (17:00)
[2020-04-10] MEDS ORDERED: ONDANSETRON 4 MG/2 ML INJ ONE (17:01)
[2020-04-10] MEDS ORDERED: PHENYLEPHRINE/NS 1,000 MCG/10 ML SYRINGE (OR USE) IV ONE (17:01)
[2020-04-10] MEDS ORDERED: LIDOCAINE MPF (2%) 20 MG/1 ML VIAL 5 ML ONE (17:01)
[2020-04-10] MEDS ORDERED: LIDOCAINE (1%) 10 MG/1 ML VIAL 20 ML MDV INFILTRATI ONE ×2 (17:37)
[2020-04-10] MEDS ORDERED: SODIUM CHLORIDE 0.9% IRRIG SOLN 2000 ML IR ONE (17:38)
[2020-04-10] MEDS ORDERED: SODIUM CHLORIDE 0.9% IRR 1,500 ML BOTTLE IR ONE (17:38)
--- NOTE | 2020-04-10 18:06 | Post Operative Note ---
Date of procedure: 04/10/20 (dictation:[id number]) Pre-op diagnosis: perianal abscesses Post-op diagnosis: other (as above, anal canal mass) Findings: excess anal tissue in canal the left buttock "abscess" was simply a pocket that connected to original abscess. No further pus found. Procedure: EUA washout of abscess areas I&D of left buttock abscess cavity Bilateral pudendal nerve blocks IVF 750cc EBL <20cc Anesthesia: GETA Surgeon: HUMERA DRAKE Estimated blood loss: minimal Pathology: list (anal tissue mass) Specimen disposition: to lab Condition: stable Disposition: PACU
--- NOTE | 2020-04-10 19:00 | Post Anesthesia Evaluation ---
- Post Anesthesia Evaluation Patient Participated: Yes Airway Patent: Yes Stable Respiratory Function: Yes Nausea/Vomiting: No Temp > 96.8F: Yes Pain Manageable: Yes Adequeate Hydration: Yes Anesthesia Complications: No
--- NOTE | 2020-04-10 19:12 | Operative Report ---
PREOPERATIVE DIAGNOSIS: Perianal abscesses. POSTOPERATIVE DIAGNOSES: Perianal abscesses. Excess anal mucosal tissue. PROCEDURES: 1. Exam under anesthesia. 2. Washout of abscess cavities. 3. Incision and drainage of left buttock abscess cavity. 4. Bilateral pudendal nerve blocks. ATTENDING PHYSICIAN: Irving Aleman MD ANESTHESIA: General. ESTIMATED BLOOD LOSS: Less than 20 mL. FLUIDS: 750 mL. FINDINGS: Multiple areas of overgrowth of anal mucosal tissue. Please note this was seen during the last evaluation as well. Evaluation of the space at the base of the scrotum revealed no evidence of infection. No further purulent material was identified. It was simply a poorly kept wound. It was simply stool and mucous that had collected in that area. SPECIMENS: Anal mucosal tissue. DRAINS: Half inch [place] drain was placed in the left buttock. COMPLICATIONS: None. DISPOSITION: Stable, transferred to Recovery Room. INDICATIONS: This is a 34-year-old male who is well known to our service as he originally presented approximately a week ago to the hospital. He had been suffering with perianal abscesses for at least a month while in senior living. We took him for exam under anesthesia and drainage of the pockets. He returned the day after discharge with complaints of poorly managed pain. He was discharged on ibuprofen. He said there was not enough to manage his pain. He had no other changes or concerns during the workup for the readmission. Repeat CT scan was done. There was concern about potential new areas of infection. Therefore, General Surgery was asked to participate in the care again. The patient is assessed to be need for another exam under anesthesia when we initially evaluated him. The entire perineum was covered in stool and the skin was irritated as a result. Therefore, the patient is assessed to be need for another exam under anesthesia with possible incision and drainage and washout of the wounds. Procedure, risks, benefits were explained to the patient. Risks include but were not limited to infection, bleeding, pain, injury to surrounding structures, possible need for further procedures in the future. The patient understood and consented. OPERATIVE NOTE: The patient was brought to the operating room and placed on the table in supine position. After adequate general anesthesia was established, the patient was placed in lithotomy position and then prepped and draped in usual sterile fashion. Pressure points were padded. SCDs were in place. The patient was already on antibiotics. Timeout was called. I began by evaluating the left abscess cavity that we originally drained and I inserted my finger towards the "possible new abscess". It ended up being simply continuation of the original abscess cavity. We had dissected this out before hence, there was increased air on the new CT scan because of the communication. I found no additional pus in this area. To minimize any collection of fluid in this area, I made a small exit wound inferiorly and then brought a [place] drain through that area, so that it would stay open and allow for any drainage of fluid that may collect. I probed at the top part of the left side of the abscess to see if it communicated at all with the skin at the base of the scrotum or base of the thigh. I found no obvious connection. It must be very small. I ended up making a small incision at the base of the scrotum, not into the scrotum, but just in the perineal area. There was absolutely no evidence of any infection. The area that is tracking there must be just from pressure from the original surgery. The [place] was in place. The fistula was wide open. Finally, the right buttock abscess cavity had mucus that had collected in there, but nothing else. At this point, I thoroughly washed out all the areas with pulse lavage and with a bulb syringe. Everything was coming back clear. I packed all the wounds with calcium alginate. I did bilateral pudendal nerve blocks. I identified the ischial spine and then guided the needle until it hit the ischial spine aspirating all along to make sure we did not hit any blood vessel. I made sure we were aware from the abscess cavities/tracts. I injected 10 mL of combination of 0.5% Marcaine and 1% lidocaine into each side. The patient tolerated the procedure well. There were no complications. Dressings were placed. All counts were correct at the end of the case. Please note that I took a biopsy of the excess anal mucosal tissue even though we had seen it last time as I presumed it was related to chronic inflammatory state, I thought it would be best to take a sample of one of the pieces of tissue just to make sure there is no other diagnosis that may be causing all of these abscesses. It was sent for pathology evaluation. JOB# [id number] JOMAR/IVETH MIGUEL
[2020-04-10] MEDS: INSULIN GLARGINE 100 UNITS/ML SUB-Q SCH (23:19)
[2020-04-10] MEDS: oxyCODONE /ACETAMINOPHEN 5-325MG TAB PO PRN (23:20)
[2020-04-10] MEDS: SODIUM CHLORIDE 0.45% 1000 ML 1,000 ML IV SCH (23:36)
[2020-04-11] MEDS: MORPHINE 2 MG/1 ML INJ IV PRN ×4 (00:43→17:57)
[2020-04-11] MEDS: MEROPENEM/NS 1 GRAM/100 ML 1 GRAM/100 ML BAG IV SCH ×3 (05:46→22:45)
[2020-04-11] MEDS: INSULIN LISPRO 100 UNIT/ML SUB-Q SCH ×4 (07:48→22:44)
--- NOTE | 2020-04-11 09:10 | Progress Note ---
Assessment and Plan - Patient Problems (1) Perirectal abscess Current Visit: Yes Status: Acute Plan to address problem: Pt stable. s/p EUA, washout, I&D (04/10) - POD#1. No new infection was identified. The air in the soft tissue at the base of the scrotum reveals no evidence of any infection. The left buttock abnormality that was of concern on the new CT was simply a continuation of the original abscess. There was no pus accumulated in that space. The main treatment the patient requires at this time is to keep the area clean and dry. The erythema on the skin is skin irritation from the accumulated moisture. Despite my telling him multiple times, I do not think he comprehends the need to keep the area clean. It appears as though he will require assistance with care once he is discharged. Patient require daily dressing changes. He needs to change the pads frequently through the day in order to keep the area dry. Unless someone reminds him, I do not think this will happen. He may benefit from brief admission to a [facility]. Wound care per the wound care nurse orders. Discussed with Dr. Hanson. Subjective Date of service: 04/11/20 Patient Reports: Positive: no new complaints, still having pain, other (has not changed the dressing this AM) Objective Vital Signs - 12hr 04/10/20 04/11/20 23:51 06:08 Temperature 98.7 F 98.4 F Pulse Rate 121 H 98 H Respiratory 24 16 Rate Blood Pressure 109/79 87/56 O2 Sat by Pulse 98 96 Oximetry - General physical appearance no distress, no pain, other (looks better) - Eyes normal occular movement - Respiratory normal expansion, normal respiratory effort - Integumentary other (perineum is moist from accumulated discharge) - Psychiatric oriented to time, oriented to person, oriented to place, speech is normal, memory intact - Labs 04/06/20 05:58 04/06/20 05:58
[2020-04-11] MEDS: TAMSULOSIN 0.4 MG CAP PO SCH (09:35)
[2020-04-11] MEDS: CALCIUM CARB/VIT D3/MINERALS 600 MG/800 UNITS TAB PO SCH ×2 (09:35→22:44)
[2020-04-11] MEDS: NICOTINE 14 MG/24 HR PATCH TD SCH (09:35)
[2020-04-11] MEDS: POTASSIUM CHLORIDE ER 20 MEQ TAB PO SCH ×2 (09:35→22:43)
[2020-04-11] MEDS: FAMOTIDINE 20 MG TAB PO SCH ×2 (09:35→22:43)
[2020-04-11] MEDS: oxyCODONE /ACETAMINOPHEN 5-325MG TAB PO PRN ×2 (09:36→16:00)
[2020-04-11] MEDS: SODIUM CHLORIDE 0.45% 1000 ML 1,000 ML IV SCH ×2 (09:39→22:43)
--- NOTE | 2020-04-11 14:57 | Progress Note ---
Assessment and Plan Cultures: Blood culture 04/05/2020 pending A/P: 34 yo M PMHx perirectal abscess admitted with fevers and pain in the perirectal area. #Acute sepsis: present with fevers and tachycardia. Unclear source, pneumonia vs abscess recurrence. I am unclear as to why the patient was discharged on doxy/Augmentin as well as the meropenem as it is not in Dr. Gaona's note, and much of the antibiotic spectrum is the same, and both drugs are clearly i neffective against an ESBL. 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 continue meropenem. #Pneumonia: small area of pneumonia, possible cause of fevers. However, would be odd to develop on meropenem unless viral. Procal only mildly elevated. Recs: -Given his poor compliance (likely through poor understanding) with wound care, some concern of how compliant he is with the IV antibiotics. -Continue meropenem, resume home health from previous admission on discharge. Case management consult placed to [facility] where in case pending needs today changed. -Wound care per general surgery. Thank you for the consult, we will continue to follow. Bella Sandoval MD [facility] ([facility]) M: [phone] O: [phone] F: [phone] Subjective Date of service: 04/11/20 Principal diagnosis: Pneumonia Interval history: No new issues. Patient underwent wound exploration yesterday no new purulence was seen. Objective - Exam Narrative Exam: Physical Exam: Constitutional: Alert, cooperative. No acute distress Head, Ears, Nose: Normocephalic, atraumatic Eyes: Conjunctivae/corneas clear. Oral: dentition fair, no thrush Cardiovascular: S1, S2 normal. Respiratory: Good air entry, clear to auscultation bilaterally GI: Soft, non-tender; bowel sounds normal. No peritoneal signs. Musculoskeletal: No pedal edema, no cyanosis. Skin: No rash or abscess Hem/Lymphatic: No palpable cervical or supraclavicular nodes. Psych: Mood ok. Affect normal Neurological: Awake, alert, oriented. No gross abnormality - Constitutional Vitals: Vital Signs Temp Pulse Resp BP Pulse Ox 99.1 F 97 H 18 84/55 94 04/11/20 11:54 04/11/20 11:54 04/11/20 11:54 04/11/20 11:54 04/11/20 11:54 Temperature -Last 24 Hours Temperature 99.1 F Temperature 98.4 F Temperature 98.7 F Temperature 97.3 F Temperature 98.4 F Temperature 98.4 F Temperature 98.5 F Temperature 97.0 F - Labs CBC & Chem 7: 04/06/20 05:58 04/06/20 05:58 Labs: Abnormal lab results 04/10/20 04/11/20 04/11/20 Range/Units 21:51 07:41 12:09 POC Glucose 201 H 132 H 197 H (70-105)
--- NOTE | 2020-04-11 15:38 | Progress Note ---
Assessment and Plan Assessment and plan: Patient is 34 years old male with no significant past medical history except for his recent admission to the hospital for perirectal abscess. Patient was discharged from the hospital yesterday with a PICC line and an order for meropenem, Augmentin and doxycycline. Patient brought to the emergency room from home for evaluation of fever and pain to the local area. Patient had an I&D done by Dr. Aleman on March 31. Patient denies any cough, shortness of breath, runny nose congestion. Patient also denied any urinary symptoms. Sepsis protocol initiated and patient received a dose of meropenem, normal saline and, Tylenol and morphine. Work up in ED revealed L medial pneumonia Patient on appropriate abx. 04/11: Continue supportive care, discussed with Surgery, and case management, extensive conversation had with this patient about care and compliance. Home health is also been arranged to assist with this at the nursing home that the patient is in. (1) Left lower lobe pneumonia Current Visit: Yes Status: Acute Plan to address problem: Patient on appropriate abx COnt Meropenem. Reason for admitting is rule out COVId repeated pna If [place] virus negative --Patient maybe discharged on same abx Isolation till then (2) Perirectal abscess Current Visit: Yes Status: Acute Plan to address problem: Cont Meropenem For IR for tODAY or further eval of the extent of wound (3) IDDM (insulin dependent diabetes mellitus) Current Visit: Yes Status: Chronic Plan to address problem: Recent last A1c 7.1 a week ago Cont Home Insulin and coverage (4) BPH (benign prostatic hyperplasia) Current Visit: Yes Status: Chronic Qualifiers: Lower urinary tract symptom presence: symptoms present Plan to address problem: Cont Flomax (5) Malnutrition Current Visit: Yes Status: Acute Qualifiers: Protein-calorie malnutrition severity: severe Plan to address problem: Albumin 2.1 Dietitian consult Dietary supplements ordered (6) Hypocalcemia Current Visit: Yes Status: Acute Plan to address problem: Supplemented (7) DVT prophylaxis Current Visit: No Status: Acute Plan to address problem: On Lovenox and GI prophylaxis History Interval history: Patient seen and examined this morning, no new complaints. He informs me that he lives in a nursing home. Hospitalist Physical - Physical exam Narrative exam: General appearance: Present: no acute distress, well-nourished - EENT Eyes: PERRL, EOM intact ENT: hearing intact, clear oral mucosa Ears: bilateral: normal - Neck Neck: supple, normal ROM - Respiratory Respiratory effort: normal Respiratory: bilateral: CTA - Breasts Breasts: normal - Cardiovascular Rhythm: regular Heart Sounds: Present: S1 & S2. Absent: gallop, rub Extremities: pulses intact, No edema, normal color, Full ROM, abnormal (P dressing in perirectal area noted. ) - Gastrointestinal General gastrointestinal: Present: soft, non-tender, non-distended, normal bowel sounds - Genitourinary Male genitourinary: normal - Integumentary Integumentary: clear, warm, dry - Musculoskeletal Musculoskeletal: 1, strength equal bilaterally - Neurologic - Constitutional Vitals: Temp Pulse Resp BP Pulse Ox 99.1 F 97 H 18 84/55 94 04/11/20 11:54 04/11/20 11:54 04/11/20 11:54 04/11/20 11:54 04/11/20 11:54 General appearance: Present: no acute distress, well-nourished Results - Labs CBC & Chem 7: 04/06/20 05:58 04/06/20 05:58 Labs: Laboratory Last Values WBC 5.0 K/mm3 (4.5-11.0) 04/06/20 05:58 RBC 3.28 M/mm3 (3.65-5.03) L 04/06/20 05:58 Hgb 9.4 gm/dl (11.8-15.2) L 04/06/20 05:58 Hct 29.2 % (35.5-45.6) L 04/06/20 05:58 MCV 89 fl (84-94) 04/06/20 05:58 MCH 29 pg (28-32) 04/06/20 05:58 MCHC 32 % (32-34) 04/06/20 05:58 RDW 18.5 % (13.2-15.2) H 04/06/20 05:58 Plt Count 257 K/mm3 (140-440) 04/06/20 05:58 Lymph % (Auto) 28.0 % (13.4-35.0) 04/06/20 05:58 [place] % (Auto) 15.7 % (0.0-7.3) H 04/06/20 05:58 Eos % (Auto) 0.6 % (0.0-4.3) 04/06/20 05:58 Baso % (Auto) 0.2 % (0.0-1.8) 04/06/20 05:58 Lymph # 1.4 K/mm3 (1.2-5.4) 04/06/20 05:58 [place] # 0.8 K/mm3 (0.0-0.8) 04/06/20 05:58 Eos # 0.0 K/mm3 (0.0-0.4) 04/06/20 05:58 Baso # 0.0 K/mm3 (0.0-0.1) 04/06/20 05:58 Add Manual Diff Complete 04/05/20 17:58 Total Counted 100 04/05/20 17:58 Seg Neutrophils % 55.5 % (40.0-70.0) 04/06/20 05:58 Seg Neuts % (Manual) 67.0 % (40.0-70.0) 04/05/20 17:58 Band Neutrophils % 0 % 04/05/20 17:58 Lymphocytes % (Manual) 21.0 % (13.4-35.0) 04/05/20 17:58 Reactive Lymphs % (Man) 0 % 04/05/20 17:58 Monocytes % (Manual) 11.0 % (0.0-7.3) H 04/05/20 17:58 Eosinophils % (Manual) 1.0 % (0.0-4.3) 04/05/20 17:58 Basophils % (Manual) 0 % (0.0-1.8) 04/05/20 17:58 Metamyelocytes % 0 % 04/05/20 17:58 Myelocytes % 0 % 04/05/20 17:58 Promyelocytes % 0 % 04/05/20 17:58 Blast Cells % 0 % 04/05/20 17:58 Nucleated RBC % Not Reportable 04/05/20 17:58 Seg Neutrophils # 2.8 K/mm3 (1.8-7.7) 04/06/20 05:58 Seg Neutrophils # Man 3.1 K/mm3 (1.8-7.7) 04/05/20 17:58 Band Neutrophils # 0.0 K/mm3 04/05/20 17:58 Lymphocytes # (Manual) 1.0 K/mm3 (1.2-5.4) L 04/05/20 17:58 Abs React Lymphs (Man) 0.0 K/mm3 04/05/20 17:58 Monocytes # (Manual) 0.5 K/mm3 (0.0-0.8) 04/05/20 17:58 Eosinophils # (Manual) 0.0 K/mm3 (0.0-0.4) 04/05/20 17:58 Basophils # (Manual) 0.0 K/mm3 (0.0-0.1) 04/05/20 17:58 Metamyelocytes # 0.0 K/mm3 04/05/20 17:58 Myelocytes # 0.0 K/mm3 04/05/20 17:58 Promyelocytes # 0.0 K/mm3 04/05/20 17:58 Blast Cells # 0.0 K/mm3 04/05/20 17:58 WBC Morphology Not Reportable 04/05/20 17:58 Hypersegmented Neuts Not Reportable 04/05/20 17:58 Hyposegmented Neuts Not Reportable 04/05/20 17:58 Hypogranular Neuts Not Reportable 04/05/20 17:58 Smudge Cells Not Reportable 04/05/20 17:58 Toxic Granulation Not Reportable 04/05/20 17:58 Toxic Vacuolation Not Reportable 04/05/20 17:58 Dohle Bodies Not Reportable 04/05/20 17:58 Pelger-Huet Anomaly Not Reportable 04/05/20 17:58 Carlota Rods Not Reportable 04/05/20 17:58 Platelet Estimate Consistent w auto 04/05/20 17:58 Clumped Platelets Not Reportable 04/05/20 17:58 Plt Clumps, EDTA Not Reportable 04/05/20 17:58 Large Platelets Not Reportable 04/05/20 17:58 Giant Platelets Not Reportable 04/05/20 17:58 Platelet Satelliting Not Reportable 04/05/20 17:58 Plt Morphology Comment Not Reportable 04/05/20 17:58 RBC Morphology Not Reportable 04/05/20 17:58 Dimorphic RBCs Not Reportable 04/05/20 17:58 Polychromasia Few 04/05/20 17:58 Hypochromasia Not Reportable 04/05/20 17:58 Poikilocytosis Not Reportable 04/05/20 17:58 Anisocytosis Not Reportable 04/05/20 17:58 Microcytosis 1+ 04/05/20 17:58 Macrocytosis Not Reportable 04/05/20 17:58 Spherocytes Not Reportable 04/05/20 17:58 Pappenheimer Bodies Not Reportable 04/05/20 17:58 Sickle Cells Not Reportable 04/05/20 17:58 Target Cells Not Reportable 04/05/20 17:58 Tear Drop Cells Not Reportable 04/05/20 17:58 Ovalocytes Not Reportable 04/05/20 17:58 Stomatocytes Few 04/05/20 17:58 Helmet Cells Not Reportable 04/05/20 17:58 Lo-[place] Bodies Not Reportable 04/05/20 17:58 [place] Rings Not Reportable 04/05/20 17:58 Alden Cells Not Reportable 04/05/20 17:58 Bite Cells Not Reportable 04/05/20 17:58 Crenated Cell Not Reportable 04/05/20 17:58 Elliptocytes Not Reportable 04/05/20 17:58 Acanthocytes (Spur) Not Reportable 04/05/20 17:58 Rouleaux Not Reportable 04/05/20 17:58 Hemoglobin C Crystals Not Reportable 04/05/20 17:58 Schistocytes Not Reportable 04/05/20 17:58 Malaria parasites Not Reportable 04/05/20 17:58 Bryon Bodies Not Reportable 04/05/20 17:58 Hem Pathologist Commnt No 04/05/20 17:58 D-Dimer 597.75 ng/mlDDU (0-234) H 04/05/20 18:58 Sodium 143 mmol/L (137-145) 04/06/20 05:58 Potassium 3.8 mmol/L (3.6-5.0) 04/06/20 05:58 Chloride 103.9 mmol/L (98-107) 04/06/20 05:58 Carbon Dioxide 26 mmol/L (22-30) 04/06/20 05:58 Anion Gap 17 mmol/L 04/06/20 05:58 BUN 5 mg/dL (9-20) L 04/06/20 05:58 Creatinine 0.7 mg/dL (0.8-1.5) L 04/06/20 05:58 Estimated GFR > 60 ml/min 04/06/20 05:58 BUN/Creatinine Ratio 7 % 04/06/20 05:58 Glucose 131 mg/dL (75-100) H 04/06/20 05:58 POC Glucose 197 (70-105) H 04/11/20 12:09 Lactic Acid 1.10 mmol/L (0.7-2.0) 04/05/20 17:58 Calcium 8.1 mg/dL (8.4-10.2) L 04/06/20 05:58 Ferritin 80.4 ng/mL (13.0-400.0) 04/05/20 18:58 Total Bilirubin 0.30 mg/dL (0.1-1.2) 04/06/20 05:58 AST 10 units/L (5-40) 04/06/20 05:58 ALT 8 units/L (7-56) 04/06/20 05:58 Alkaline Phosphatase 306 units/L (35-129) H 04/06/20 05:58 Lactate Dehydrogenase 155 units/L (91-180) 04/05/20 18:58 C-Reactive Protein 7.20 mg/dL (0.00-1.30) H 04/05/20 18:58 Total Protein 5.9 g/dL (6.3-8.2) L 04/06/20 05:58 Albumin 2.3 g/dL (3.9-5) L 04/06/20 05:58 Albumin/Globulin Ratio 0.6 % 04/06/20 05:58 Procalcitonin 0.23 ng/mL (<0.15) 04/05/20 18:58 Urine Color Straw (Yellow) 04/05/20 17:31 Urine Turbidity Clear (Clear) 04/05/20 17:31 Urine pH 8.0 (5.0-7.0) H 04/05/20 17:31 Ur Specific [place] 1.006 (1.003-1.030) 04/05/20 17:31 Urine Protein <15 mg/dl mg/dL (Negative) 04/05/20 17:31 Urine Glucose (UA) >=500 mg/dL (Negative) 04/05/20 17:31 Urine Ketones Neg mg/dL (Negative) 04/05/20 17:31 Urine Blood Neg (Negative) 04/05/20 17:31 Urine Nitrite Neg (Negative) 04/05/20 17:31 Urine Bilirubin Neg (Negative) 04/05/20 17:31 Urine Urobilinogen < 2.0 mg/dL (<2.0) 04/05/20 17:31 Ur Leukocyte Esterase Neg (Negative) 04/05/20 17:31 Urine WBC (Auto) 1.0 /HPF (0.0-6.0) 04/05/20 17:31 Urine RBC (Auto) 2.0 /HPF (0.0-6.0) 04/05/20 17:31 Nasal Screen MRSA (PCR) Negative (Negative) 04/06/20 02:25 Coronavirus (PCR) Negative (Negative) 04/06/20 09:10 Microbiology: Microbiology 04/05/20 17:58 Peripheral/Venous Blood Culture - Final NO GROWTH AFTER 5 DAYS 04/05/20 17:58 Peripheral/Venous Blood Culture - Final NO GROWTH AFTER 5 DAYS Ambrocio/IV: Voiding Method Urinal IV Catheter Type [Right Upper Mid-line arm] Active Medications - Current Medications Current Medications: Generic Name Dose Route Start Last Admin Trade Name Freq PRN Reason Stop Dose Admin Acetaminophen 650 mg 04/05/20 23:31 04/06/20 17:26 Tylenol PO 650 mg Q4H PRN Administration Pain MILD(1-3)/Fever >100.5/VO Famotidine 20 mg 04/06/20 22:00 04/11/20 09:35 Pepcid PO 20 mg BID DMITRIY Administration Hydromorphone HCl 0.5 mg 04/05/20 23:34 04/10/20 12:08 Dilaudid IV 0.5 mg Q3H PRN Administration Pain , Severe (7-10) MEROPENEM/NS 1 GRAM/100 ML 1 gram in 100 mls @ 100 mls/hr 04/08/20 14:00 04/11/20 13:15 Merrem/Ns 1 Gram/100 Ml IV 100 mls/hr Q8HR DMITRIY Administration Sodium Chloride 1,000 mls @ 125 mls/hr 04/10/20 13:00 04/11/20 09:39 Nacl 0.45% 1000 Ml IV 125 mls/hr DIRECT DMITRIY Administration Ibuprofen 800 mg 04/05/20 23:31 04/09/20 12:21 Ibuprofen PO 800 mg Q8HR PRN Administration Pain, Moderate (4-6) Insulin Glargine 40 units 04/08/20 15:17 04/10/20 23:19 Lantus SUB-Q 40 units QHS DMITRIY Administration Insulin Human Lispro 0 unit 04/08/20 11:30 04/11/20 12:37 Humalog SUB-Q 3 unit ACHS DMITRIY Administration Protocol Metoclopramide HCl 10 mg 04/05/20 23:34 Reglan IV Q6H PRN Nausea And Vomiting Miscellaneous Medication 750 mg 04/06/20 08:00 Balsalazide Disodium [Colazal] PO TID DMITRIY Miscellaneous Medication 300 mg 04/05/20 23:45 Ursodiol [Ursodiol] PO BID DMITRIY Morphine Sulfate 2 mg 04/10/20 12:30 04/11/20 12:38 Morphine IV 2 mg Q6H PRN Administration Pain, Moderate (4-6) Multivitamins/Minerals 1 each 04/06/20 10:00 04/11/20 09:35 Caltrate Plus PO 1 each BID DMITRIY Administration Nicotine 14 mg 04/10/20 14:00 04/11/20 09:35 Habitrol TD 14 mg QDAY DMITRIY Administration Olanzapine 5 mg 04/06/20 10:00 04/11/20 09:35 Zyprexa PO 5 mg DAILY DMITRIY Administration Ondansetron HCl 4 mg 04/05/20 23:33 Zofran IV Q8H PRN Nausea And Vomiting Oxycodone/Acetaminophen 1 tab 04/05/20 23:34 04/11/20 09:36 Percocet 5/325 PO 1 tab Q6H PRN Administration Pain, Moderate (4-6) Potassium Chloride 10 meq 04/05/20 23:45 04/11/20 09:35 K-Dur PO 10 meq BID DMITRIY Administration Sodium Chloride 10 ml 04/06/20 10:00 04/11/20 09:35 Sodium Chloride Flush Syringe 10 Ml IV 10 ml BID DMITRIY Administration Sodium Chloride 10 ml 04/05/20 23:33 Sodium Chloride Flush Syringe 10 Ml IV PRN PRN LINE FLUSH Tamsulosin HCl 0.4 mg 04/06/20 10:00 04/11/20 09:35 Flomax PO 0.4 mg QDAY DMITRIY Administration Zinc Oxide 1 applic 04/11/20 11:00 Zinc Oxide TP BID DMITRIY Nutrition/Malnutrition Assess - Dietary Evaluation Nutrition/Malnutrition Findings: Nutrition Notes Start: 04/06/20 08:46 Freq: Status: Active Protocol: Document 04/09/20 12:45 LP (Rec: 04/09/20 12:52 LP [email or web address]) Nutrition Notes Initial or Follow up Reassessment Other Pertinent Diagnosis Fever, perirectal abscess, Pneu, R/O COVID-19 Current Diet Consistent CHO Labs/Tests BG 107 Pertinent Medications Reviewed Height 5 ft 8 in Weight 51.6 kg [place] Body Weight (kg) 70.00 BMI 17.3 Weight Status Underweight Subjective/Other Information Pt consuming 100% of meals and drinking supplements. Percent of energy/protein needs met: 100%/100% Burn Absent Trauma Absent GI Symptoms None Minimum of two criteria No physical signs of malnutrition #2 Nutrition Diagnosis No nutrition diagnosis at this time #1 Nutrition Diagnosis Predicted suboptimal energy intake As Evidenced by Signs and Symptoms Pt consuming 100% of meals. Diagnosis Progress(for reassessment Resolved documentation) Is patient on ventilator? No Is Patient Ambulatory and/or Out of Bed Yes REE-([facility]-ambulatory/OOB) [ 1866.150 [id number]] Calculation Used for Recommendations [facility] Additional Notes Protein needs are 56-67g (1-1. 2g/kg) Fluid needs are 1ml/kcal Nutrition Intervention Change Diet Order: Continue Add Supplement/Snack (indicate name/kcal Glucerna daily /protein ) Provides kCal: 220 Provides Protein (gm) 10 Goal #1 Meet at least 80% of kcal and protein needs Anticipated Discharge Needs: Consistent CHO diet and ONS as needed Follow-Up By: 04/15/20 Additional Comments Follow for stable intakes
[2020-04-11] MEDS: ZINC OXIDE 20% OINT 28.35 GM TP SCH ×2 (16:13→22:54)
[2020-04-11] MEDS: INSULIN GLARGINE 100 UNITS/ML SUB-Q SCH (22:44)
[2020-04-12] MEDS: HYDROmorphone 1 MG/1 ML INJ IV PRN ×2 (03:39→08:29)
[2020-04-12] MEDS: MEROPENEM/NS 1 GRAM/100 ML 1 GRAM/100 ML BAG IV SCH (05:44)
[2020-04-12] MEDS: MORPHINE 2 MG/1 ML INJ IV PRN ×2 (05:49→10:52)
[2020-04-12 05:52] VITALS: BP 96/63
[2020-04-12] MEDS: INSULIN LISPRO 100 UNIT/ML SUB-Q SCH (08:22)
--- NOTE | 2020-04-12 09:55 | Discharge Summary ---
Providers - Providers Date of Admission: 04/05/20 18:42 Attending physician: SARAH EARL MD 04/07/20 09:43 Consult to Physician [CONS] Routine Comment: fever despite recent d/c with candi for perirectal Consulting Provider: MARK MONTANA Physician Instructions: Reason For Exam: persistant fever 04/08/20 14:59 Consult to Physician [CONS] Routine Comment: Consulting Provider: HUMERA ALEMAN Physician Instructions: Reason For Exam: Repeat abscess, known patient 04/09/20 09:55 Consult to Wound/ET Nurse [CONS] Routine Reason For Exam: wound eval 04/11/20 09:01 Consult to Case Management [CONS] Routine Services Needed at Discharge: Flanging Roll Operator Notified:: cm Additional Physician Instructions: Needs placement. Primary care physician: STRUCTURAL DESIGNER Hospitalization Reason for admission: pneumonia Condition: Stable Hospital course: Patient is 34 years old male with no significant past medical history except for his recent admission to the hospital for perirectal abscess. Patient was discharged from the hospital yesterday with a PICC line and an order for meropenem, Augmentin and doxycycline. Patient brought to the emergency room from home for evaluation of fever and pain to the local area. Patient had an I&D done by Dr. Aleman on March 31. Patient denies any cough, shortness of breath, runny nose congestion. Patient also denied any urinary symptoms. Sepsis protocol initiated and patient received a dose of meropenem, normal saline and, Tylenol and morphine. Work up in ED revealed L medial pneumonia Patient on appropriate abx. 04/11: Continue supportive care, discussed with Surgery, and case management, extensive conversation had with this patient about care and compliance. Home health is also been arranged to assist with this at the retirement that the patient is in. 04/12: Patient continues to clinically improve. Case management arranged with home health to assist with management of wound. (1) Left lower lobe pneumonia Current Visit: Yes Status: Acute Plan to address problem: Patient on appropriate abx ruled out coronavirus (2) Perirectal abscess Current Visit: Yes Status: Acute Plan to address problem: Cont Meropenem For IR for TODAY or further eval of the extent of wound (3) IDDM (insulin dependent diabetes mellitus) Current Visit: Yes Status: Chronic Plan to address problem: Recent last A1c 7.1 a week ago Cont Home Insulin and coverage (4) BPH (benign prostatic hyperplasia) Current Visit: Yes Status: Chronic Qualifiers: Lower urinary tract symptom presence: symptoms present Plan to address problem: Cont Flomax (5) Malnutrition Current Visit: Yes Status: Acute Qualifiers: Protein-calorie malnutrition severity: severe Plan to address problem: Albumin 2.1 Dietitian consult Dietary supplements ordered (6) Hypocalcemia Current Visit: Yes Status: Acute Plan to address problem: Supplemented Disposition: DC/TX-06 HOME UNDER HOME HLTH Time spent for discharge: 35 MINS Core Measure Documentation - Palliative Care Palliative Care/ Comfort Measures: Not Applicable - Core Measures Any of the following diagnoses?: none Exam - Physical Exam Narrative exam: General appearance: Present: no acute distress, well-nourished - EENT Eyes: PERRL, EOM intact ENT: hearing intact, clear oral mucosa Ears: bilateral: normal - Neck Neck: supple, normal ROM - Respiratory Respiratory effort: normal Respiratory: bilateral: CTA - Breasts Breasts: normal - Cardiovascular Rhythm: regular Heart Sounds: Present: S1 & S2. Absent: gallop, rub Extremities: pulses intact, No edema, normal color, Full ROM, abnormal (dressing in perirectal area noted. ) - Gastrointestinal General gastrointestinal: Present: soft, non-tender, non-distended, normal bowel sounds - Genitourinary Male genitourinary: normal - Integumentary Integumentary: clear, warm, dry - Musculoskeletal Musculoskeletal: 1, strength equal bilaterally - Neurologic - Constitutional Vitals: Temp Pulse Resp BP Pulse Ox 97.3 F L 115 H 18 96/63 96 04/12/20 05:48 04/12/20 05:48 04/12/20 05:48 04/12/20 05:48 04/12/20 05:48 Plan Activity: advance as tolerated, fall precautions Diet: diabetic, no red dye, no straws, no carbonated beverages Wound: per your surgeon's advice, per wound nurse instructions Special Instructions: record daily weights, record daily BP diary, home health RN Follow up with: AMOR ALARCON MD [Primary Care Provider] - 3-5 Days HUMERA ALEMAN MD [Staff Physician] - 7 Days MITCHEL TAYLOR MD [Staff Physician] - 7 Days [facility] [Outside] - 7 Days Prescriptions: oxyCODONE /ACETAMINOPHEN [Percocet 5/325 mg] 1 tab PO Q6H PRN #14 tablet PRN Reason: Pain, Moderate (4-6) Zinc Oxide 1 applic TP BID #7 tube
[2020-04-12] MEDS: NICOTINE 14 MG/24 HR PATCH TD SCH (10:23)
[2020-04-12] MEDS: POTASSIUM CHLORIDE ER 20 MEQ TAB PO SCH (10:23)
[2020-04-12] MEDS: FAMOTIDINE 20 MG TAB PO SCH (10:23)
[2020-04-12] MEDS: CALCIUM CARB/VIT D3/MINERALS 600 MG/800 UNITS TAB PO SCH (10:23)
[2020-04-12] MEDS: TAMSULOSIN 0.4 MG CAP PO SCH (10:52)
--- NOTE | 2020-04-12 11:10 | Progress Note ---
Assessment and Plan (1) Perirectal abscess Current Visit: Yes Status: Acute Plan to address problem: Pt stable. s/p EUA, washout, I&D (04/10) - POD#2. No new infection was identified. The air in the soft tissue at the base of the scrotum reveals no evidence of any infection. The left buttock abnormality that was of concern on the new CT was simply a continuation of the original abscess. There was no pus accumulated in that space. Plan: 1. sitz baths multiple times per day - at least 4 times per day. Clean area with wet wipes. Cover with ABD pad. Nursing to teach patient how to perform sitz baths 2. abx per 1' service 3. prn pain control 4. C already set up and they are to teach form setter helper of halfway where patient lives how to help with wound care 5. zinc oxide cream to area of diaper rash in groin 6. area must be kept clean and dry to ensure wound healing. Dr. Aleman has discussed this with patient multiple times and I have reinforced this today. Plan discussed with patient's RN who will provide supplies and sitz bath teaching. Discussed with Dr. Hanson. Pt to be discharged to halfway today. He may follow up with Dr. Aleman in 3-5 days and then in wound care clinic. Thank you, please call with questions. Subjective Date of service: 04/12/20 Narrative: Pt seen and examined. States that the wounds are constantly leaking. He has been doing wound care with the help of his nurses but is not sure if he can keep the area clean. No f/c. Objective Vital Signs - 12hr 04/12/20 05:48 Temperature 97.3 F L Pulse Rate 115 H Respiratory 18 Rate Blood Pressure 96/63 O2 Sat by Pulse 96 Oximetry - General physical appearance Narrative Exam: Gen; AAOx3. NAD - Labs 04/06/20 05:58 04/06/20 05:58
== END 2020-04-12 13:01 | disposition home health service (06) | DRG 871 ==
LOC: ED 15:28 → 3A 18:42
PROVIDERS: ADMIT Internal Medicine; ATTEND Internal Medicine
PROC: 0J990ZX Drainage of Buttock Subcutaneous Tissue and Fascia, Open Approach, Diagnostic (ICD-10-PCS; principal; 2020-04-10)
DX: A41.9 Sepsis, unspecified organism (principal); J18.9 Pneumonia, unspecified organism; E43 Unspecified severe protein-calorie malnutrition; K61.1 Rectal abscess; Z68.1 Body mass index [BMI] 19.9 or less, adult; K61.0 Anal abscess; N40.0 Benign prostatic hyperplasia without lower urinary tract symptoms; E83.51 Hypocalcemia; Z20.828 Contact with and (suspected) exposure to other viral communicable diseases; E11.9 Type 2 diabetes mellitus without complications; F17.200 Nicotine dependence, unspecified, uncomplicated; Z88.2 Allergy status to sulfonamides; Z79.4 Long term (current) use of insulin; Z79.899 Other long term (current) drug therapy
CPT/HCPCS: 36415; 71045; 74177; 80053; 81001; 82140; 82728; 82947; 82962; 83615; 84145; 85007; 85025; 85379; 86140; 87040; 87641; 88305; 99406; G0378; A4217; A6250; J1170; J1815; J1885; J1956; J2185; J2270; J2370; J2405; J2704; J3010; J7030; J7050; J7120; Q9967; U0003-CS

== ENCOUNTER 2020-04-30 16:22 | Inpatient (IN) | payer OTHER, SELFPAY ==
--- NOTE | 2020-04-30 17:05 | Event Note ---
ED Screening Note ED Screening Note: sp surgery for rectal abscess ill appearing dm no fever tachy This initial assessment/diagnostic orders/clinical plan/treatment(s) is/are subject to change based on patients health status, clinical progression and re- assessment by fellow clinical providers in the ED. Further treatment and workup at subsequent clinical providers discretion. Patient/guardian urged not to elope from the ED as their condition may be serious if not clinically assessed and managed. Initial orders include: labs
[2020-04-30 19:31] LABS: Basophils % (Auto) 0.3 % (0.0-1.8); Eosinophils # (Auto) 0.1 K/mm3 (0.0-0.4); Eosinophils % (Auto) 1.5 % (0.0-4.3); Hematocrit 31.9 % (35.5-45.6); Hemoglobin 10.1 gm/dl (11.8-15.2); Lymphocytes # (Auto) 1.6 K/mm3 (1.2-5.4); Mean Corpuscular HGB Conc 32 % (32-34); Mean Corpuscular Volume 89 fl (84-94); Monocytes # (Auto) 0.8 K/mm3 (0.0-0.8); Monocytes % (Auto) 13.2 % (0.0-7.3); Platelet Count 326 K/mm3 (140-440); Red Blood Count 3.57 M/mm3 (3.65-5.03); Red Cell Distribution Width 17.1 % (13.2-15.2)
[2020-04-30 19:32] LABS: Alanine Aminotransferase 58 units/L (7-56); Albumin 3.4 g/dL (3.9-5); BUN/Creatinine Ratio 9; Blood Urea Nitrogen 6 mg/dL (9-20); Calcium 9.1 mg/dL (8.4-10.2); Hemolysis Index 0
[2020-05-01] MEDS ORDERED: PIPERACIL/TAZOBACTA 4.5/NS 100 4.5 GM/100 ML VIAL IV ONE (00:28)
[2020-05-01] MEDS ORDERED: SODIUM CHLORIDE 0.9% 1000 ML 1,000 ML IV ONE (00:28)
--- NOTE | 2020-05-01 00:34 | Emergency Department Report ---
ED General Adult HPI - General Chief complaint: Rectal Pain Stated complaint: PAIN PUI?: No Time Seen by Provider: 04/30/20 17:02 Source: patient Mode of arrival: Wheelchair Limitations: No Limitations - History of Present Illness Initial comments: Patient is a 34-year-old male that presents emergency room with complaints of rectal pain. Patient states he has had multiple procedures to his rectal area and has a drain in place. Patient states 2 days ago that the pain increased and he started leaking stool from the [place] drain is in place. Patient denies fever. Patient denies chills. Patient states the pain is a 10 out of 10. Patient states his pain is worsening. Patient dates the pain is worse with moving and walking. Pain states the pain is better with rest. -: Sudden Location: buttocks Radiation: non-radiation Severity scale (0 -10): 10 Quality: stabbing Consistency: constant Improves with: rest Worsens with: movement, other Associated Symptoms: denies: confusion, chest pain, cough, diaphoresis, fever/chills, headaches, loss of appetite, malaise, nausea/vomiting, rash, seizure, shortness of breath, syncope, weakness Treatments Prior to Arrival: none - Related Data Home Medications Medication Instructions Recorded Confirmed Last Taken Balsalazide Disodium [Colazal] 750 mg PO TID 03/31/20 04/05/20 Unknown Insulin Detemir [Levemir VIAL] 25 unit SQ QHS 03/31/20 04/05/20 Unknown Insulin NPH/Regular [NovoLIN 70/30] 4 unit SUB-Q BID 03/31/20 04/05/20 Unknown OLANZapine [Zyprexa] 5 mg PO DAILY 03/31/20 04/05/20 Unknown Potassium Chloride [K-Dur] 10 meq PO BID 03/31/20 04/05/20 Unknown Tamsulosin [Flomax] 0.4 mg PO QDAY 03/31/20 04/05/20 Unknown ursodioL [Ursodiol] 300 mg PO BID 03/31/20 04/05/20 Unknown Previous Rx's Medication Instructions Recorded Last Taken Type Ibuprofen [Motrin 800 MG tab] 800 mg PO Q8HR PRN #20 tablet 04/01/20 Unknown Rx Acetaminophen [Acetaminophen TAB] 650 mg PO Q4H PRN tablet 04/04/20 Unknown Rx Zinc Oxide 1 applic TP BID #7 tube 04/12/20 Unknown Rx oxyCODONE /ACETAMINOPHEN [Percocet 1 tab PO Q6H PRN #14 tablet 04/12/20 Unknown Rx 5/325 mg] oxyCODONE /ACETAMINOPHEN [Percocet 1 tab PO Q6HR PRN #15 tablet 04/22/20 Unknown Rx 5/325] Allergies Allergy/AdvReac Type Severity Reaction Status Date / Time Sulfa (Sulfonamide Allergy Rash Verified 03/30/20 19:19 Antibiotics) ED Review of Systems ROS: Stated complaint: PAIN Other details as noted in HPI Comment: All other systems reviewed and negative ED Past Medical Hx - Past Medical History Previous Medical History?: Yes Hx Hypertension: No Hx Heart Attack/AMI: No Hx Congestive Heart Failure: No Hx Diabetes: Yes Hx Deep Vein Thrombosis: No Hx Pulmonary Embolism: No Hx Liver Disease: No Hx Renal Disease: No Hx Sickle Cell Disease: No Hx Arthritis: No Hx Seizures: No Hx Asthma: No Hx COPD: No Hx HIV: No Additional medical history: Left perianal abscess - Surgical History Past Surgical History?: Yes Hx Pacemaker: No Hx Internal Defibrillator: No Hx Cholecystectomy: No Hx Appendectomy: No Additional Surgical History: Incision and drainage perianal abscess - Family History Family history: no significant - Social History Smoking Status: Never Smoker Substance Use Type: None - Medications Home Medications: Home Medications Medication Instructions Recorded Confirmed Last Taken Type Balsalazide Disodium [Colazal] 750 mg PO TID 03/31/20 04/05/20 Unknown History Insulin Detemir [Levemir VIAL] 25 unit SQ QHS 03/31/20 04/05/20 Unknown History Insulin NPH/Regular [NovoLIN 70/30] 4 unit SUB-Q BID 03/31/20 04/05/20 Unknown History OLANZapine [Zyprexa] 5 mg PO DAILY 03/31/20 04/05/20 Unknown History Potassium Chloride [K-Dur] 10 meq PO BID 03/31/20 04/05/20 Unknown History Tamsulosin [Flomax] 0.4 mg PO QDAY 03/31/20 04/05/20 Unknown History ursodioL [Ursodiol] 300 mg PO BID 03/31/20 04/05/20 Unknown History Ibuprofen [Motrin 800 MG tab] 800 mg PO Q8HR PRN #20 tablet 04/01/20 04/05/20 Unknown Rx Acetaminophen [Acetaminophen TAB] 650 mg PO Q4H PRN tablet 04/04/20 04/05/20 Unknown Rx Zinc Oxide 1 applic TP BID #7 tube 04/12/20 Unknown Rx oxyCODONE /ACETAMINOPHEN [Percocet 1 tab PO Q6H PRN #14 tablet 04/12/20 Unknown Rx 5/325 mg] oxyCODONE /ACETAMINOPHEN [Percocet 1 tab PO Q6HR PRN #15 tablet 04/22/20 Unknown Rx 5/325] ED Physical Exam - General Limitations: No Limitations General appearance: alert, in no apparent distress - Head Head exam: Present: atraumatic, normocephalic - Eye Eye exam: Present: normal appearance - ENT ENT exam: Present: mucous membranes moist - Neck Neck exam: Present: normal inspection - Respiratory Respiratory exam: Present: normal lung sounds bilaterally. Absent: respiratory distress - Cardiovascular Cardiovascular Exam: Present: regular rate, normal rhythm. Absent: systolic m urmur, diastolic murmur, rubs, gallop - GI/Abdominal GI/Abdominal exam: Present: soft, normal bowel sounds. Absent: distended, tenderness, guarding - Rectal Rectal exam: Present: other ([place] drain in place. Copious amounts of stool coming from the surgical wound and drain.) - Extremities Exam Extremities exam: Present: normal inspection - Back Exam Back exam: Present: normal inspection - Neurological Exam Neurological exam: Present: alert, oriented X3 - Psychiatric Psychiatric exam: Present: normal affect, normal mood - Skin Skin exam: Present: warm, dry, intact, normal color. Absent: rash ED Course Vital Signs 04/30/20 05/01/20 05/01/20 17:01 01:13 01:14 Temperature 98.8 F Pulse Rate 109 H 88 Respiratory 20 18 18 Rate Blood Pressure 98/66 Blood Pressure 101/66 [Left] O2 Sat by Pulse 98 98 98 Oximetry - Reevaluation(s) Reevaluation #1: I discussed all results with patient. I discussed plan of care with patient. Patient agrees with plan of care and admission. Patient to be admitted to the hospitalist service. 05/01/20 01:26 - Consultations Consultation #1: General surgery paged 05/01/20 00:[address] Molina, general surgery. Dr. Molina does not recommend any further imaging and recommends admission to the hospitalist service. 05/01/20 01:26 Consultation #2: Hospitalist consulted for admission. Hospitalist to admit patient. 05/01/20 01:31 ED Medical Decision Making - Lab Data Result diagrams: 04/30/20 18:53 04/30/20 18:53 - Medical Decision Making Patient is a 34-year-old male that presents emergency room with rectal pain. 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 Patient has an open wound with a [place] drain in it. Patient has stool coming from the [place] drain. Patient given Dilaudid for pain. Patient given Zosyn for broad-spectrum antibiotic. General surgery was consulted and they recommend admission and no further imaging in the ER. Patient admitted to the hospitalist service. - Differential Diagnosis Rectal fistula, perirectal abscess, rectal pain Critical Care Time: Yes Critical care time in (mins) excluding proc time.: 35 Critical care attestation.: If time is entered above; I have spent that time in minutes in the direct care of this critically ill patient, excluding procedure time. Critical Care Time: 35 MINUTES ED Disposition Clinical Impression: Perirectal abscess, Open wound of perineum, Rectal fistula Disposition: DC-[id number] OP ADMIT IP TO THIS HOSP Is pt being admited?: Yes Does the pt Need Aspirin: No Condition: Critical Time of Disposition: 01:29
[2020-05-01] MEDS ORDERED: HYDROmorphone 1 MG/1 ML INJ IV ONE (00:56)
[2020-05-01] MEDS ORDERED: HYDROmorphone 1 MG/1 ML INJ ONE (00:57)
[2020-05-01] MEDS ORDERED: DEXTROSE 50% IN WATER (25GM) 50 ML SYRINGE IV PRN (02:48)
[2020-05-01] MEDS ORDERED: ONDANSETRON 4 MG/2 ML INJ IV PRN (02:56)
[2020-05-01] MEDS ORDERED: ACETAMINOPHEN 325 MG TAB PO PRN (02:56)
--- NOTE | 2020-05-01 03:04 | History and Physical Report ---
History of Present Illness Date of examination: 05/01/20 Date of admission: 05/01/20 02:03 Chief complaint: Rectal area pain History of present illness: 34 year old male presenting with rectal pain going on for some time. pain became worse in the last 2 days . patient has procedures done to the rectal area in the past and has a device put in the rectal area. There is no history of fever, chills , shortness of breath, nausea or vomiting. There is no rectal bleeding. Past History Past Medical History: diabetes, other (PERINEAL ABCESS) Past Surgical History: Other (INCISION AND DRAINAGE OF PERINEAL ABCESS) Social history: no significant social history Family history: no significant family history Medications and Allergies Allergies Allergy/AdvReac Type Severity Reaction Status Date / Time Sulfa (Sulfonamide Allergy Rash Verified 03/30/20 19:19 Antibiotics) Home Medications Medication Instructions Recorded Confirmed Last Taken Type Balsalazide Disodium [Colazal] 750 mg PO TID 03/31/20 04/05/20 Unknown History Insulin Detemir [Levemir VIAL] 25 unit SQ QHS 03/31/20 04/05/20 Unknown History Insulin NPH/Regular [NovoLIN 70/30] 4 unit SUB-Q BID 03/31/20 04/05/20 Unknown History OLANZapine [Zyprexa] 5 mg PO DAILY 03/31/20 04/05/20 Unknown History Potassium Chloride [K-Dur] 10 meq PO BID 03/31/20 04/05/20 Unknown History Tamsulosin [Flomax] 0.4 mg PO QDAY 03/31/20 04/05/20 Unknown History ursodioL [Ursodiol] 300 mg PO BID 03/31/20 04/05/20 Unknown History Ibuprofen [Motrin 800 MG tab] 800 mg PO Q8HR PRN #20 tablet 04/01/20 04/05/20 Unknown Rx Acetaminophen [Acetaminophen TAB] 650 mg PO Q4H PRN tablet 04/04/20 04/05/20 Unknown Rx Zinc Oxide 1 applic TP BID #7 tube 04/12/20 Unknown Rx oxyCODONE /ACETAMINOPHEN [Percocet 1 tab PO Q6H PRN #14 tablet 04/12/20 Unknown Rx 5/325 mg] oxyCODONE /ACETAMINOPHEN [Percocet 1 tab PO Q6HR PRN #15 tablet 04/22/20 Unknown Rx 5/325] Active Meds: Active Medications Acetaminophen (Tylenol) 650 mg PO Q4H PRN PRN Reason: Fever >101 Dextrose (D50w (25gm) Syringe) 50 ml IV Q30MIN PRN; Protocol PRN Reason: Hypoglycemia Hydromorphone HCl (Dilaudid) 1 mg IV Q4H PRN PRN Reason: Pain , Severe (7-10) Piperacillin Sod/Tazobactam Sod (Zosyn/Ns 4.5gm/100ml) 4.5 gm in 100 mls @ 200 mls/hr IV Q6HR DMITRIY; Protocol Insulin Human Regular (Humulin R) 0 units SUB-Q Q4H DMITRIY; Protocol Ondansetron HCl (Zofran) 4 mg IV Q8H PRN PRN Reason: Nausea And Vomiting Review of Systems Constitutional: no weight loss, no weight gain, no fever, no chills, no sweats, no weakness Eyes: bilateral: other (NO BILATERAL EYE SYMPTOMS) Ears, nose, mouth and throat: no ear pain, no ear discharge, no decreased hearing, no nose pain, no nasal congestion, no nasal discharge, no sinus pressure, no dental pain, no mouth pain, no dysphagia, no headache Cardiovascular: no chest pain, no orthopnea, no palpitations, no edema, no syncope, no lightheadedness, no shortness of breath, no claudication, no high blood pressure Respiratory: no cough, no excessive sputum, no hemoptysis, no shortness of breath, no wheezing, no pain, no home oxygen Gastrointestinal: no abdominal pain, no nausea, no vomiting, no change in bowel habits, no hematemesis, no melena, no hematochezia, no loss of appetite, no j aundice Genitourinary Male: no dysuria, no hematuria, no urinary frequency, no urinary hesitancy, no nocturia, no incontinence, no erectile dysfunction Rectal: pain, discharge, no incontinence, no itching, no hemorrhoids Musculoskeletal: no neck stiffness, no neck pain, no shooting arm pain, no arm numbness/tingling, no low back pain, no shooting leg pain, no morning stiffness, no muscle weakness, no muscle cramps Integumentary: no rash, no pruritis, no redness, no sores, no wounds, no jaundice, no darkening of skin, no depigmentation Neurological: no paralysis, no weakness, no parathesias, no numbness, no tingling, no syncope, no tremors, no migraines, no convulsions, no aphasia, no change in speech, no change in mentation, no confusion, no memory loss Psychiatric: no anxiety, no memory loss, no change in libido, no difficulties concentrating Endocrine: no cold intolerance, no heat intolerance, no polyphagia, no polydipsia, no polyuria, no nocturia Hematologic/Lymphatic: no easy bruising, no easy bleeding, no lymphadenopathy Exam - Constitutional Vitals: Temp Pulse Resp BP Pulse Ox 98.8 F 88 18 101/66 98 04/30/20 17:01 05/01/20 01:13 05/01/20 01:14 05/01/20 01:13 05/01/20 01:14 General appearance: Present: mild distress - EENT Eyes: Present: PERRL, EOM intact ENT: hearing intact, clear oral mucosa - Neck Neck: Present: supple - Respiratory Respiratory effort: normal - Cardiovascular Rhythm: regular Heart Sounds: Present: S1 & S2. Absent: gallop, systolic murmur, diastolic murmur - Extremities Extremities: no ischemia, No edema Peripheral Pulses: within normal limits - Abdominal General gastrointestinal: Present: soft, non-tender, non-distended. Absent: tender, distended, rigid, hepatomegaly, splenomegaly Male genitourinary: Present: deferred - Rectal Rectal Exam: other (TENDERNESS IN THE RECTAL AREA WITH PALPATION ) - Musculoskeletal Musculoskeletal: strength equal bilaterally - Psychiatric Psychiatric: appropriate mood/affect - Neurologic Neurologic: CNII-XII intact Results - Labs CBC & Chem 7: 04/30/20 18:53 04/30/20 18:53 Labs: Laboratory Last Values WBC 6.3 K/mm3 (4.5-11.0) 04/30/20 18:53 RBC 3.57 M/mm3 (3.65-5.03) L 04/30/20 18:53 Hgb 10.1 gm/dl (11.8-15.2) L 04/30/20 18:53 Hct 31.9 % (35.5-45.6) L 04/30/20 18:53 MCV 89 fl (84-94) 04/30/20 18:53 MCH 28 pg (28-32) 04/30/20 18:53 MCHC 32 % (32-34) 04/30/20 18:53 RDW 17.1 % (13.2-15.2) H 04/30/20 18:53 Plt Count 326 K/mm3 (140-440) 04/30/20 18:53 Lymph % (Auto) 26.0 % (13.4-35.0) 04/30/20 18:53 [place] % (Auto) 13.2 % (0.0-7.3) H 04/30/20 18:53 Eos % (Auto) 1.5 % (0.0-4.3) 04/30/20 18:53 Baso % (Auto) 0.3 % (0.0-1.8) 04/30/20 18:53 Lymph # 1.6 K/mm3 (1.2-5.4) 04/30/20 18:53 [place] # 0.8 K/mm3 (0.0-0.8) 04/30/20 18:53 Eos # 0.1 K/mm3 (0.0-0.4) 04/30/20 18:53 Baso # 0.0 K/mm3 (0.0-0.1) 04/30/20 18:53 Seg Neutrophils % 59.0 % (40.0-70.0) 04/30/20 18:53 Seg Neutrophils # 3.7 K/mm3 (1.8-7.7) 04/30/20 18:53 Sodium 135 mmol/L (137-145) L 04/30/20 18:53 Potassium 3.9 mmol/L (3.6-5.0) 04/30/20 18:53 Chloride 95.3 mmol/L (98-107) L 04/30/20 18:53 Carbon Dioxide 28 mmol/L (22-30) 04/30/20 18:53 Anion Gap 16 mmol/L 04/30/20 18:53 BUN 6 mg/dL (9-20) L 04/30/20 18:53 Creatinine 0.7 mg/dL (0.8-1.5) L 04/30/20 18:53 Estimated GFR > 60 ml/min 04/30/20 18:53 BUN/Creatinine Ratio 9 % 04/30/20 18:53 Glucose 384 mg/dL (75-100) H 04/30/20 18:53 Calcium 9.1 mg/dL (8.4-10.2) 04/30/20 18:53 Total Bilirubin 0.30 mg/dL (0.1-1.2) 04/30/20 18:53 AST 54 units/L (5-40) H 04/30/20 18:53 ALT 58 units/L (7-56) H 04/30/20 18:53 Alkaline Phosphatase 636 units/L (35-129) H 04/30/20 18:53 Total Protein 7.4 g/dL (6.3-8.2) 04/30/20 18:53 Albumin 3.4 g/dL (3.9-5) L 04/30/20 18:53 Albumin/Globulin Ratio 0.9 % 04/30/20 18:53 Microbiology: Microbiology 04/30/20 18:53 Peripheral/Venous Blood Culture - Preliminary Culture in Progress 04/30/20 18:58 Peripheral/Venous Blood Culture - Preliminary Culture in Progress Assessment and Plan - Patient Problems (1) Perirectal abscess Current Visit: Yes Status: Acute Plan to address problem: 1. SURGICAL CONSULT WITH CONCRETE TECHNICIAN SURGEON 2. 1.V ZOSYN ANTIBIOTICS 3. I.V DILUDID FOR PAIN 4. TABLET TYLENOL FOR FEVER 5. I.V ZOFRAN FOR NAUSEA AND VOMITING (2) Rectal fistula Current Visit: Yes Status: Acute Plan to address problem: SURGICAL CONSULT WITH CONCRETE TECHNICIAN SURGEON.
[2020-05-01] MEDS: INSULIN REGULAR, HUMAN 100 UNITS/1 ML SUB-Q SCH ×6 (03:55→22:29)
[2020-05-01] MEDS ORDERED: INSULIN REGULAR, HUMAN 100 UNITS/1 ML ONE (03:59)
[2020-05-01 04:47] LABS: Bilirubin,Urine NEG (Negative); Blood,Urine NEG (Negative); Color,Urine Yellow (Yellow); Mucus,Urine FEW /HPF; Protein,Urine <15 mg/dL mg/dL (Negative); RBC,Urine < 1.0 /HPF (0.0-6.0); Urobilinogen,Urine < 2.0 mg/dL (<2.0)
[2020-05-01] MEDS: PIPERACIL/TAZOBACTA 4.5/NS 100 4.5 GM/100 ML VIAL IV SCH ×4 (05:14→23:35)
[2020-05-01] MEDS: HYDROmorphone 1 MG/1 ML INJ IV PRN ×4 (05:15→20:02)
--- NOTE | 2020-05-01 09:31 | Consultation ---
History of Present Illness Consult date: 05/01/20 Reason for consult: wound care Requesting physician: BRANDON CARDENAS III Chief complaint: perianal pain - History of present illness History of present illness: 34yo M who is well-known to our service for having a complicated perirectal fistula status post I&D and seton placement returns due to pain and drainage in the perineal area. Patient reports that he was doing the sitz bath's twice a day and changing the dressings 2-3 times a day. Denies any fevers, chills, nausea, vomiting. We are asked to evaluate. Past History Past Medical History: diabetes, other (PERINEAL ABCESS) Past Surgical History: Other (INCISION AND DRAINAGE OF PERINEAL ABCESS) Social history: no significant social history Family history: no significant family history Medications and Allergies Allergies Allergy/AdvReac Type Severity Reaction Status Date / Time Sulfa (Sulfonamide Allergy Rash Verified 03/30/20 19:19 Antibiotics) Home Medications Medication Instructions Recorded Confirmed Last Taken Type Balsalazide Disodium [Colazal] 750 mg PO TID 03/31/20 05/01/20 Unknown History Insulin Detemir [Levemir VIAL] 25 unit SQ QHS 03/31/20 05/01/20 1 Day Ago History ~04/30/20 Insulin NPH/Regular [NovoLIN 70/30] 4 unit SUB-Q BID 03/31/20 05/01/20 Unknown History OLANZapine [Zyprexa] 5 mg PO DAILY 03/31/20 05/01/20 Unknown History Potassium Chloride [K-Dur] 10 meq PO BID 03/31/20 05/01/20 Unknown History Tamsulosin [Flomax] 0.4 mg PO QDAY 03/31/20 05/01/20 Unknown History ursodioL [Ursodiol] 300 mg PO BID 03/31/20 05/01/20 Unknown History Ibuprofen [Motrin 800 MG tab] 800 mg PO Q8HR PRN #20 tablet 04/01/20 05/01/20 Unknown Rx Acetaminophen [Acetaminophen TAB] 650 mg PO Q4H PRN tablet 04/04/20 05/01/20 Unknown Rx Zinc Oxide 1 applic TP BID #7 tube 04/12/20 05/01/20 Unknown Rx oxyCODONE /ACETAMINOPHEN [Percocet 1 tab PO Q6H PRN #14 tablet 04/12/20 05/01/20 Unknown Rx 5/325 mg] oxyCODONE /ACETAMINOPHEN [Percocet 1 tab PO Q6HR PRN #15 tablet 04/22/20 05/01/20 Unknown Rx 5/325] Active Meds: Active Medications Acetaminophen (Tylenol) 650 mg PO Q4H PRN PRN Reason: Fever >101 Dextrose (D50w (25gm) Syringe) 0 ml IV Q30MIN PRN; Protocol PRN Reason: Hypoglycemia Hydromorphone HCl (Dilaudid) 1 mg IV Q4H PRN PRN Reason: Pain , Severe (7-10) Last Admin: 05/01/20 05:15 Dose: 1 mg Documented by: Piperacillin Sod/Tazobactam Sod (Zosyn/Ns 4.5gm/100ml) 4.5 gm in 100 mls @ 200 mls/hr IV Q6HR DMITRIY; Protocol Last Admin: 05/01/20 05:14 Dose: 200 mls/hr Documented by: Insulin Human Regular (Humulin R) 0 units SUB-Q Q4H DMITRIY; Protocol Last Admin: 05/01/20 06:31 Dose: 2 units Documented by: Ondansetron HCl (Zofran) 4 mg IV Q8H PRN PRN Reason: Nausea And Vomiting Review of Systems - Constitutional chronic pain, no fever, no chills - Cardiovascular no chest pain, no shortness of breath - Respiratory no cough - Gastrointestinal no abdominal pain, no nausea, no vomiting - Integumentary wounds Exam Vital Signs Temp Pulse Resp BP Pulse Ox 98.8 F 109 H 20 98/66 98 04/30/20 17:01 04/30/20 17:01 04/30/20 17:01 04/30/20 17:01 04/30/20 17:01 - General physical appearance Positive: no distress, no pain - Eyes Positive: normal occular movement - Respiratory Positive: normal expansion, normal respiratory effort, clear to auscultation - Cardiovascular Rhythm: regular - Abdomen Abdomen: Present: soft - Rectum Rectum: other (No signs of erythema or purulent drainage. [place] drain in place. [place] in place. Right buttock wound is clean. Drain came out previously. Pt sitting in a large amount of liquid stool. ) - Neurologic Neurologic: alert and oriented to time, place and person - Psychiatric Psychiatric: cooperative, other (Does not appear to have appropriate judgment or insight) Results - Labs 04/30/20 18:53 04/30/20 18:53 Abnormal lab results 04/30/20 04/30/20 05/01/20 Range/Units 18:53 18:53 04:06 RBC 3.57 L (3.65-5.03) M/mm3 Hgb 10.1 L (11.8-15.2) gm/dl Hct 31.9 L (35.5-45.6) % RDW 17.1 H (13.2-15.2) % [place] % (Auto) 13.2 H (0.0-7.3) % Sodium 135 L (137-145) mmol/L Chloride 95.3 L (98-107) mmol/L BUN 6 L (9-20) mg/dL Creatinine 0.7 L (0.8-1.5) mg/dL Glucose 384 H (75-100) mg/dL POC Glucose 282 H (70-105) AST 54 H (5-40) units/L ALT 58 H (7-56) units/L Alkaline Phosphatase 636 H (35-129) units/L Albumin 3.4 L (3.9-5) g/dL 05/01/20 Range/Units 06:25 RBC (3.65-5.03) M/mm3 Hgb (11.8-15.2) gm/dl Hct (35.5-45.6) % RDW (13.2-15.2) % [place] % (Auto) (0.0-7.3) % Sodium (137-145) mmol/L Chloride (98-107) mmol/L BUN (9-20) mg/dL Creatinine (0.8-1.5) mg/dL Glucose (75-100) mg/dL POC Glucose 228 H (70-105) AST (5-40) units/L ALT (7-56) units/L Alkaline Phosphatase (35-129) units/L Albumin (3.9-5) g/dL Diabetes panel 04/30/20 Range/Units 18:53 Sodium 135 L (137-145) mmol/L Potassium 3.9 (3.6-5.0) mmol/L Chloride 95.3 L (98-107) mmol/L Carbon Dioxide 28 (22-30) mmol/L BUN 6 L (9-20) mg/dL Creatinine 0.7 L (0.8-1.5) mg/dL Glucose 384 H (75-100) mg/dL Calcium 9.1 (8.4-10.2) mg/dL AST 54 H (5-40) units/L ALT 58 H (7-56) units/L Alkaline Phosphatase 636 H (35-129) units/L Total Protein 7.4 (6.3-8.2) g/dL Albumin 3.4 L (3.9-5) g/dL Calcium panel 04/30/20 Range/Units 18:53 Calcium 9.1 (8.4-10.2) mg/dL Albumin 3.4 L (3.9-5) g/dL Pituitary panel 04/30/20 Range/Units 18:53 Sodium 135 L (137-145) mmol/L Potassium 3.9 (3.6-5.0) mmol/L Chloride 95.3 L (98-107) mmol/L Carbon Dioxide 28 (22-30) mmol/L BUN 6 L (9-20) mg/dL Creatinine 0.7 L (0.8-1.5) mg/dL Glucose 384 H (75-100) mg/dL Calcium 9.1 (8.4-10.2) mg/dL Adrenal panel 04/30/20 Range/Units 18:53 Sodium 135 L (137-145) mmol/L Potassium 3.9 (3.6-5.0) mmol/L Chloride 95.3 L (98-107) mmol/L Carbon Dioxide 28 (22-30) mmol/L BUN 6 L (9-20) mg/dL Creatinine 0.7 L (0.8-1.5) mg/dL Glucose 384 H (75-100) mg/dL Calcium 9.1 (8.4-10.2) mg/dL Total Bilirubin 0.30 (0.1-1.2) mg/dL AST 54 H (5-40) units/L ALT 58 H (7-56) units/L Alkaline Phosphatase 636 H (35-129) units/L Total Protein 7.4 (6.3-8.2) g/dL Albumin 3.4 L (3.9-5) g/dL Assessment and Plan - Patient Problems (1) Rectal fistula Current Visit: Yes Status: Acute Plan to address problem: Patient is stable. There do not appear to be any new issues or new infections. The main problem continues to be that he is not caring for his wounds as he needs to. After having interacted with him multiple times now, I think the pro blem may be that he does not have the mental capacity to do what is necessary to take care of himself. Unfortunately, I think the best thing at this point may be to do a diverting colostomy to allow the perianal/rectal wounds to heal. Once that happens, then the colostomy can be reversed in the future. This will require a number of months. I discussed this possible plan with him. He went back and forth and ultimately said he did not want to proceed. I discussed the situation with his case worker (Nelia Browning - [phone]) at great length. As we do not have an emergency, infection, urgent issue, etc., I am a bit torn to move forward with a colostomy when he does not want it. I do feel it is ultimately in his best interest as he cannot adequately take care of himself at this time. Ms. Browning will talk to her team and then get back to me on what they advise. In the meantime, I will try Imodium to see if I can slow down the liquid stool. Perhaps if the drainage is minimal, he may be able to manage it without the diverting colostomy. I am not confident that this will be enough. Routine wound care at this point. We will follow along. Will advise once we get further guidance from the state case worker. Please call with any questions Time=60min
[2020-05-01] MEDS ORDERED: LOPERAMIDE 2 MG/10 ML ORAL LIQD PO SCH (10:00)
[2020-05-01] MEDS ORDERED: LOPERAMIDE 1 MG/7.5 ML PO SCH (11:00)
[2020-05-01] MEDS: LOPERAMIDE 1 MG/7.5 ML PO SCH ×3 (15:00→22:43)
--- NOTE | 2020-05-01 16:30 | Event Note ---
Date: 05/01/20 Continue supportive care. No new complaints
[2020-05-01] MEDS: ZINC OXIDE 20% OINT 28.35 GM TP SCH ×2 (19:57→22:06)
[2020-05-01] MEDS ORDERED: BALSALAZIDE DISODIUM 750 MG PO SCH (20:00)
[2020-05-01] MEDS ORDERED: INSULIN GLARGINE 100 UNITS/ML SUB-Q SCH (22:00)
[2020-05-01] MEDS ORDERED: URSODIOL 300 MG PO SCH (22:00)
[2020-05-01] MEDS ORDERED: INSULIN DETEMIR 25 UNIT SQ SCH (22:00)
[2020-05-01] MEDS: POTASSIUM CHLORIDE ER 20 MEQ TAB PO SCH (22:04)
[2020-05-01] MEDS: oxyCODONE /ACETAMINOPHEN 5-325MG TAB PO PRN (22:14)
[2020-05-02] MEDS: HYDROmorphone 1 MG/1 ML INJ IV PRN ×4 (03:17→15:04)
[2020-05-02] MEDS: INSULIN REGULAR, HUMAN 100 UNITS/1 ML SUB-Q SCH ×6 (03:34→23:21)
[2020-05-02] MEDS: PIPERACIL/TAZOBACTA 4.5/NS 100 4.5 GM/100 ML VIAL IV SCH ×4 (06:21→23:21)
[2020-05-02] MEDS: LOPERAMIDE 1 MG/7.5 ML PO SCH ×3 (08:01→21:10)
[2020-05-02] MEDS: oxyCODONE /ACETAMINOPHEN 5-325MG TAB PO PRN ×3 (08:04→23:21)
[2020-05-02] MEDS: TAMSULOSIN 0.4 MG CAP PO SCH (10:08)
[2020-05-02] MEDS: POTASSIUM CHLORIDE ER 20 MEQ TAB PO SCH ×2 (10:08→21:10)
[2020-05-02] MEDS: ZINC OXIDE 20% OINT 28.35 GM TP SCH ×2 (10:09→21:11)
--- NOTE | 2020-05-02 11:34 | Progress Note ---
Assessment and Plan Assessment and plan: Patient is 34 years old male with no significant past medical history except multiple hospitalization for perirectal abscess. 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 He reports that he has been doing the sitz bath twice daily but has not been able to keep up with dressing changes. Although while in the hospital is been observed that he cannot do the sitz bath. An attempt to place him into SNF facility last time was unsuccessful due to insurance reasons. He has been on multiple antibiotics including meropenem and returns with worsening pain. He was seen by surgery with recommendation that possibly an diverting colostomy would be best for this patient although caring for his disease has been a challenge. A last ditch effort is being done to see if we can get the patient trained on how to provide adequate care although his mental capacity seems to be a barrier. However also the patient does not want to have this procedure done. No new infection is noted. (1) Perirectal abscess Current Visit: Yes Status: Acute Plan to address problem: Continue supportive care. Continue antibiotics therapy Continue wound care management. If patient still unable to care for himself we will have another discussion with him about possible diverting colostomy. (2) Rectal fistula Current Visit: Yes Status: Acute Plan to address problem: SURGICAL CONSULT WITH MEDICAL DATA ANALYST SURGEON. (3) IDDM (insulin dependent diabetes mellitus) Current Visit: Yes Status: Chronic Plan to address problem: Recent last A1c 7.1 a week ago Cont Home Insulin and coverage (4) BPH (benign prostatic hyperplasia) Current Visit: Yes Status: Chronic Qualifiers: Lower urinary tract symptom presence: symptoms present Plan to address problem: Cont Flomax (5) Malnutrition Current Visit: Yes Status: Acute Qualifiers: Protein-calorie malnutrition severity: severe Plan to address problem: Albumin 2.1 Dietitian consult Dietary supplements ordered (6) long-term resident secondary to mental delay. Continue supportive care DVT and GI prophylaxis History Interval history: Patient seen and examined rounding discussed with nursing staff patient still with pain requesting pain medication [id number]. Still with drainage from wound site. Nursing staff indicates that the patient has difficulty caring for the wound and still requires assistance with every wound care. Hospitalist Physical - Physical exam Narrative exam: General appearance: Present: no acute distress, well-nourished, reports generalized pain - EENT Eyes: PERRL, EOM intact ENT: hearing intact, clear oral mucosa Ears: bilateral: normal - Neck Neck: supple, normal ROM - Respiratory Respiratory effort: normal Respiratory: bilateral: CTA - Breasts Breasts: normal - Cardiovascular Rhythm: regular Heart Sounds: Present: S1 & S2. Absent: gallop, rub Extremities: pulses intact, No edema, normal color, Full ROM, abnormal wounds noted - Gastrointestinal General gastrointestinal: Present: soft, non-tender, non-distended, normal bowel sounds - Genitourinary Male genitourinary: normal - Integumentary Integumentary: Wounds noted. - Musculoskeletal Musculoskeletal: 1, strength equal bilaterally - Constitutional Vitals: Temp Pulse Resp BP Pulse Ox 98.3 F 86 18 93/55 98 05/02/20 11:05 05/02/20 11:05 05/02/20 11:05 05/02/20 11:05 05/02/20 11:05 General appearance: Present: mild distress Results - Labs CBC & Chem 7: 04/30/20 18:53 04/30/20 18:53 Labs: Laboratory Last Values WBC 6.3 K/mm3 (4.5-11.0) 04/30/20 18:53 RBC 3.57 M/mm3 (3.65-5.03) L 04/30/20 18:53 Hgb 10.1 gm/dl (11.8-15.2) L 04/30/20 18:53 Hct 31.9 % (35.5-45.6) L 04/30/20 18:53 MCV 89 fl (84-94) 04/30/20 18:53 MCH 28 pg (28-32) 04/30/20 18:53 MCHC 32 % (32-34) 04/30/20 18:53 RDW 17.1 % (13.2-15.2) H 04/30/20 18:53 Plt Count 326 K/mm3 (140-440) 04/30/20 18:53 Lymph % (Auto) 26.0 % (13.4-35.0) 04/30/20 18:53 [place] % (Auto) 13.2 % (0.0-7.3) H 04/30/20 18:53 Eos % (Auto) 1.5 % (0.0-4.3) 04/30/20 18:53 Baso % (Auto) 0.3 % (0.0-1.8) 04/30/20 18:53 Lymph # 1.6 K/mm3 (1.2-5.4) 04/30/20 18:53 [place] # 0.8 K/mm3 (0.0-0.8) 04/30/20 18:53 Eos # 0.1 K/mm3 (0.0-0.4) 04/30/20 18:53 Baso # 0.0 K/mm3 (0.0-0.1) 04/30/20 18:53 Seg Neutrophils % 59.0 % (40.0-70.0) 04/30/20 18:53 Seg Neutrophils # 3.7 K/mm3 (1.8-7.7) 04/30/20 18:53 Sodium 135 mmol/L (137-145) L 04/30/20 18:53 Potassium 3.9 mmol/L (3.6-5.0) 04/30/20 18:53 Chloride 95.3 mmol/L (98-107) L 04/30/20 18:53 Carbon Dioxide 28 mmol/L (22-30) 04/30/20 18:53 Anion Gap 16 mmol/L 04/30/20 18:53 BUN 6 mg/dL (9-20) L 04/30/20 18:53 Creatinine 0.7 mg/dL (0.8-1.5) L 04/30/20 18:53 Estimated GFR > 60 ml/min 04/30/20 18:53 BUN/Creatinine Ratio 9 % 04/30/20 18:53 Glucose 384 mg/dL (75-100) H 04/30/20 18:53 POC Glucose 241 (70-105) H 05/02/20 11:21 Calcium 9.1 mg/dL (8.4-10.2) 04/30/20 18:53 Total Bilirubin 0.30 mg/dL (0.1-1.2) 04/30/20 18:53 AST 54 units/L (5-40) H 04/30/20 18:53 ALT 58 units/L (7-56) H 04/30/20 18:53 Alkaline Phosphatase 636 units/L (35-129) H 04/30/20 18:53 Total Protein 7.4 g/dL (6.3-8.2) 04/30/20 18:53 Albumin 3.4 g/dL (3.9-5) L 04/30/20 18:53 Albumin/Globulin Ratio 0.9 % 04/30/20 18:53 Urine Color Yellow (Yellow) 05/01/20 04:25 Urine Turbidity Clear (Clear) 05/01/20 04:25 Urine pH 5.0 (5.0-7.0) 05/01/20 04:25 Ur Specific [place] 1.016 (1.003-1.030) 05/01/20 04:25 Urine Protein <15 mg/dl mg/dL (Negative) 05/01/20 04:25 Urine Glucose (UA) >=500 mg/dL (Negative) 05/01/20 04:25 Urine Ketones Neg mg/dL (Negative) 05/01/20 04:25 Urine Blood Neg (Negative) 05/01/20 04:25 Urine Nitrite Neg (Negative) 05/01/20 04:25 Urine Bilirubin Neg (Negative) 05/01/20 04:25 Urine Urobilinogen < 2.0 mg/dL (<2.0) 05/01/20 04:25 Ur Leukocyte Esterase Neg (Negative) 05/01/20 04:25 Urine WBC (Auto) 1.0 /HPF (0.0-6.0) 05/01/20 04:25 Urine RBC (Auto) < 1.0 /HPF (0.0-6.0) 05/01/20 04:25 U Epithel Cells (Auto) < 1.0 /HPF (0-13.0) 05/01/20 04:25 Urine Mucus Few /HPF 05/01/20 04:25 Microbiology: Microbiology 04/30/20 18:53 Peripheral/Venous Blood Culture - Preliminary NO GROWTH AFTER 24 HOURS 04/30/20 18:58 Peripheral/Venous Blood Culture - Preliminary NO GROWTH AFTER 24 HOURS Ambrocio/IV: Voiding Method Toilet IV Catheter Type [right arm] INT / Saline Lock Active Medications - Current Medications Current Medications: Generic Name Dose Route Start Last Admin Trade Name Freq PRN Reason Stop Dose Admin Acetaminophen 650 mg 05/01/20 02:56 Tylenol PO Q4H PRN Fever >101 Dextrose 0 ml 05/01/20 02:48 D50w (25gm) Syringe IV Q30MIN PRN Hypoglycemia Protocol Hydromorphone HCl 1 mg 05/01/20 02:53 05/02/20 06:24 Dilaudid IV 1 mg Q4H PRN Administration Pain , Severe (7-10) Piperacillin Sod/Tazobactam Sod 4.5 gm in 100 mls @ 200 mls/hr 05/01/20 06:00 05/02/20 06:21 Zosyn/Ns 4.5gm/100ml IV 200 mls/hr Q6HR DMITRIY Administration Protocol Insulin Glargine 25 units 05/01/20 22:00 05/01/20 22:26 Lantus SUB-Q 25 units QHS DMITRIY Administration Insulin Human Regular 0 units 05/01/20 03:00 05/02/20 07:17 Humulin R SUB-Q Not Given Q4H [facility] Protocol Miscellaneous Medication 1 each 05/01/20 11:00 05/02/20 08:01 Non-Formulary PO 1 each TID DMITRIY Administration Miscellaneous Medication 750 mg 05/01/20 20:00 Balsalazide Disodium [Colazal] PO TID DMITRIY Miscellaneous Medication 300 mg 05/01/20 22:00 Ursodiol [Ursodiol] PO BID DMITRIY Olanzapine 5 mg 05/02/20 10:00 05/02/20 10:08 Zyprexa PO 5 mg DAILY DMITRIY Administration Ondansetron HCl 4 mg 05/01/20 02:56 Zofran IV Q8H PRN Nausea And Vomiting Oxycodone/Acetaminophen 1 tab 05/01/20 15:21 05/02/20 08:04 Percocet 5/325 PO 1 tab Q6H PRN Administration Pain, Moderate (4-6) Potassium Chloride 10 meq 05/01/20 22:00 05/02/20 10:08 K-Dur PO 10 meq BID DMITRIY Administration Tamsulosin HCl 0.4 mg 05/02/20 10:00 05/02/20 10:08 Flomax PO 0.4 mg QDAY DMITRIY Administration Zinc Oxide 1 applic 05/01/20 22:00 05/02/20 10:09 Zinc Oxide TP 1 applic BID DMITRIY Administration
[2020-05-02] MEDS ORDERED: INSULIN GLARGINE 100 UNITS/ML SUB-Q SCH (15:54)
[2020-05-03] MEDS: INSULIN REGULAR, HUMAN 100 UNITS/1 ML SUB-Q SCH ×5 (03:43→21:01)
[2020-05-03] MEDS: PIPERACIL/TAZOBACTA 4.5/NS 100 4.5 GM/100 ML VIAL IV SCH ×3 (06:02→17:26)
[2020-05-03] MEDS: HYDROmorphone 1 MG/1 ML INJ IV PRN ×3 (06:05→20:16)
[2020-05-03] MEDS: LOPERAMIDE 1 MG/7.5 ML PO SCH ×3 (08:02→20:37)
[2020-05-03] MEDS: TAMSULOSIN 0.4 MG CAP PO SCH ×2 (08:03→11:36)
[2020-05-03] MEDS: POTASSIUM CHLORIDE ER 20 MEQ TAB PO SCH ×3 (08:03→22:03)
--- NOTE | 2020-05-03 09:50 | Progress Note ---
Assessment and Plan Assessment and plan: Patient is 34 years old male with no significant past medical history except multiple hospitalization for perirectal abscess. 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 He reports that he has been doing the sitz bath twice daily but has not been able to keep up with dressing changes. Although while in the hospital is been observed that he cannot do the sitz bath. An attempt to place him into SNF facility last time was unsuccessful due to insurance reasons. He has been on multiple antibiotics including meropenem and returns with worsening pain. He was seen by surgery with recommendation that possibly an diverting colostomy would be best for this patient although caring for his disease has been a challenge. A last ditch effort is being done to see if we can get the patient trained on how to provide adequate care although his mental capacity seems to be a barrier. However also the patient does not want to have this procedure done. No new infection is noted. 05/03: Adjust blood glucose to prevent hypoglycemia, will need assistance with case management for discharge planl (1) Perirectal abscess Current Visit: Yes Status: Acute Plan to address problem: Continue supportive care. Continue antibiotics therapy Continue wound care management. If patient still unable to care for himself we will have another discussion with him about possible diverting colostomy. (2) Rectal fistula Current Visit: Yes Status: Acute Plan to address problem: SURGICAL CONSULT WITH RAIL CREW MEMBER SURGEON. (3) IDDM (insulin dependent diabetes mellitus) Current Visit: Yes Status: Chronic Plan to address problem: Recent last A1c 7.1 a week ago Cont Home Insulin and coverage (4) BPH (benign prostatic hyperplasia) Current Visit: Yes Status: Chronic Qualifiers: Lower urinary tract symptom presence: symptoms present Plan to address problem: Cont Flomax (5) Malnutrition Current Visit: Yes Status: Acute Qualifiers: Protein-calorie malnutrition severity: severe Plan to address problem: Albumin 2.1 Dietitian consult Dietary supplements ordered (6) care home resident secondary to mental delay. Continue supportive care DVT and GI prophylaxis History Interval history: Patient seen and examined. No new complaints Hospitalist Physical - Physical exam Narrative exam: General appearance: Present: no acute distress, well-nourished, reports generalized pain - EENT Eyes: PERRL, EOM intact ENT: hearing intact, clear oral mucosa Ears: bilateral: normal - Neck Neck: supple, normal ROM - Respiratory Respiratory effort: normal Respiratory: bilateral: CTA - Breasts Breasts: normal - Cardiovascular Rhythm: regular Heart Sounds: Present: S1 & S2. Absent: gallop, rub Extremities: pulses intact, No edema, normal color, Full ROM, abnormal wounds noted - Gastrointestinal General gastrointestinal: Present: soft, non-tender, non-distended, normal bowel sounds - Genitourinary Male genitourinary: normal - Integumentary Integumentary: Wounds noted. - Musculoskeletal Musculoskeletal: 1, strength equal bilaterally - Constitutional Vitals: Temp Pulse Resp BP Pulse Ox 97.9 F 68 18 96/62 96 05/03/20 07:21 05/03/20 07:21 05/03/20 07:21 05/03/20 07:21 05/03/20 07:21 General appearance: Present: mild distress Results - Labs CBC & Chem 7: 04/30/20 18:53 04/30/20 18:53 Labs: Laboratory Last Values WBC 6.3 K/mm3 (4.5-11.0) 04/30/20 18:53 RBC 3.57 M/mm3 (3.65-5.03) L 04/30/20 18:53 Hgb 10.1 gm/dl (11.8-15.2) L 04/30/20 18:53 Hct 31.9 % (35.5-45.6) L 04/30/20 18:53 MCV 89 fl (84-94) 04/30/20 18:53 MCH 28 pg (28-32) 04/30/20 18:53 MCHC 32 % (32-34) 04/30/20 18:53 RDW 17.1 % (13.2-15.2) H 04/30/20 18:53 Plt Count 326 K/mm3 (140-440) 04/30/20 18:53 Lymph % (Auto) 26.0 % (13.4-35.0) 04/30/20 18:53 [place] % (Auto) 13.2 % (0.0-7.3) H 04/30/20 18:53 Eos % (Auto) 1.5 % (0.0-4.3) 04/30/20 18:53 Baso % (Auto) 0.3 % (0.0-1.8) 04/30/20 18:53 Lymph # 1.6 K/mm3 (1.2-5.4) 04/30/20 18:53 [place] # 0.8 K/mm3 (0.0-0.8) 04/30/20 18:53 Eos # 0.1 K/mm3 (0.0-0.4) 04/30/20 18:53 Baso # 0.0 K/mm3 (0.0-0.1) 04/30/20 18:53 Seg Neutrophils % 59.0 % (40.0-70.0) 04/30/20 18:53 Seg Neutrophils # 3.7 K/mm3 (1.8-7.7) 04/30/20 18:53 Sodium 135 mmol/L (137-145) L 04/30/20 18:53 Potassium 3.9 mmol/L (3.6-5.0) 04/30/20 18:53 Chloride 95.3 mmol/L (98-107) L 04/30/20 18:53 Carbon Dioxide 28 mmol/L (22-30) 04/30/20 18:53 Anion Gap 16 mmol/L 04/30/20 18:53 BUN 6 mg/dL (9-20) L 04/30/20 18:53 Creatinine 0.7 mg/dL (0.8-1.5) L 04/30/20 18:53 Estimated GFR > 60 ml/min 04/30/20 18:53 BUN/Creatinine Ratio 9 % 04/30/20 18:53 Glucose 384 mg/dL (75-100) H 04/30/20 18:53 POC Glucose 71 (70-105) 05/03/20 07:25 Calcium 9.1 mg/dL (8.4-10.2) 04/30/20 18:53 Total Bilirubin 0.30 mg/dL (0.1-1.2) 04/30/20 18:53 AST 54 units/L (5-40) H 04/30/20 18:53 ALT 58 units/L (7-56) H 04/30/20 18:53 Alkaline Phosphatase 636 units/L (35-129) H 04/30/20 18:53 Total Protein 7.4 g/dL (6.3-8.2) 04/30/20 18:53 Albumin 3.4 g/dL (3.9-5) L 04/30/20 18:53 Albumin/Globulin Ratio 0.9 % 04/30/20 18:53 Urine Color Yellow (Yellow) 05/01/20 04:25 Urine Turbidity Clear (Clear) 05/01/20 04:25 Urine pH 5.0 (5.0-7.0) 05/01/20 04:25 Ur Specific [place] 1.016 (1.003-1.030) 05/01/20 04:25 Urine Protein <15 mg/dl mg/dL (Negative) 05/01/20 04:25 Urine Glucose (UA) >=500 mg/dL (Negative) 05/01/20 04:25 Urine Ketones Neg mg/dL (Negative) 05/01/20 04:25 Urine Blood Neg (Negative) 05/01/20 04:25 Urine Nitrite Neg (Negative) 05/01/20 04:25 Urine Bilirubin Neg (Negative) 05/01/20 04:25 Urine Urobilinogen < 2.0 mg/dL (<2.0) 05/01/20 04:25 Ur Leukocyte Esterase Neg (Negative) 05/01/20 04:25 Urine WBC (Auto) 1.0 /HPF (0.0-6.0) 05/01/20 04:25 Urine RBC (Auto) < 1.0 /HPF (0.0-6.0) 05/01/20 04:25 U Epithel Cells (Auto) < 1.0 /HPF (0-13.0) 05/01/20 04:25 Urine Mucus Few /HPF 05/01/20 04:25 Microbiology: Microbiology 04/30/20 18:53 Peripheral/Venous Blood Culture - Preliminary NO GROWTH AFTER 48 HOURS 04/30/20 18:58 Peripheral/Venous Blood Culture - Preliminary NO GROWTH AFTER 48 HOURS Ambrocio/IV: Voiding Method Urinal IV Catheter Type [right arm] INT / Saline Lock Active Medications - Current Medications Current Medications: Generic Name Dose Route Start Last Admin Trade Name Freq PRN Reason Stop Dose Admin Acetaminophen 650 mg 05/01/20 02:56 Tylenol PO Q4H PRN Fever >101 Dextrose 0 ml 05/01/20 02:48 D50w (25gm) Syringe IV Q30MIN PRN Hypoglycemia Protocol Hydromorphone HCl 1 mg 05/01/20 02:53 05/03/20 06:05 Dilaudid IV 1 mg Q4H PRN Administration Pain , Severe (7-10) Piperacillin Sod/Tazobactam Sod 4.5 gm in 100 mls @ 200 mls/hr 05/01/20 06:00 05/03/20 06:02 Zosyn/Ns 4.5gm/100ml IV 200 mls/hr Q6HR DMITRIY Administration Protocol Insulin Glargine 15 units 05/03/20 09:48 Lantus SUB-Q QHS DMITRIY Insulin Human Regular 0 units 05/01/20 03:00 05/03/20 06:15 Humulin R SUB-Q 4 units Q4H DMITRIY Administration Protocol Miscellaneous Medication 1 each 05/01/20 11:00 05/03/20 08:02 Non-Formulary PO 1 each TID DMITRIY Administration Miscellaneous Medication 750 mg 05/01/20 20:00 Balsalazide Disodium [Colazal] PO TID DMITRIY Miscellaneous Medication 300 mg 05/01/20 22:00 Ursodiol [Ursodiol] PO BID DMITRIY Olanzapine 5 mg 05/02/20 10:00 05/03/20 08:03 Zyprexa PO 5 mg DAILY DMITRIY Administration Ondansetron HCl 4 mg 05/01/20 02:56 Zofran IV Q8H PRN Nausea And Vomiting Oxycodone/Acetaminophen 1 tab 05/01/20 15:21 05/02/20 23:21 Percocet 5/325 PO 1 tab Q6H PRN Administration Pain, Moderate (4-6) Potassium Chloride 10 meq 05/01/20 22:00 05/03/20 08:03 K-Dur PO 10 meq BID DMITRIY Administration Tamsulosin HCl 0.4 mg 05/02/20 10:00 05/03/20 08:03 Flomax PO 0.4 mg QDAY DMITRIY Administration Zinc Oxide 1 applic 05/01/20 22:00 05/02/20 21:11 Zinc Oxide TP 1 applic BID DMITRIY Administration
[2020-05-03] MEDS: ZINC OXIDE 20% OINT 28.35 GM TP SCH ×2 (11:00→22:10)
[2020-05-03] MEDS: oxyCODONE /ACETAMINOPHEN 5-325MG TAB PO PRN (11:24)
[2020-05-03] MEDS ORDERED: SODIUM CHLORIDE 0.9% 500 ML 500 ML ONE (16:34)
[2020-05-03] MEDS ORDERED: INSULIN GLARGINE 100 UNITS/ML SUB-Q SCH (22:00)
[2020-05-04] MEDS: HYDROmorphone 1 MG/1 ML INJ IV PRN ×2 (00:18→06:18)
[2020-05-04] MEDS: INSULIN REGULAR, HUMAN 100 UNITS/1 ML SUB-Q SCH ×4 (00:24→11:23)
[2020-05-04] MEDS: PIPERACIL/TAZOBACTA 4.5/NS 100 4.5 GM/100 ML VIAL IV SCH ×2 (00:28→06:14)
--- NOTE | 2020-05-04 08:55 | Progress Note ---
Assessment and Plan Assessment and plan: Patient is 34 years old male with no significant past medical history except multiple hospitalization for perirectal abscess. 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 He reports that he has been doing the sitz bath twice daily but has not been able to keep up with dressing changes. Although while in the hospital is been observed that he cannot do the sitz bath. An attempt to place him into SNF facility last time was unsuccessful due to insurance reasons. He has been on multiple antibiotics including meropenem and returns with worsening pain. He was seen by surgery with recommendation that possibly an diverting colostomy would be best for this patient although caring for his disease has been a challenge. A last ditch effort is being done to see if we can get the patient trained on how to provide adequate care although his mental capacity seems to be a barrier. However also the patient does not want to have this procedure done. No new infection is noted. 05/03: Adjust blood glucose to prevent hypoglycemia, will need assistance with case management for discharge plan 05/04: Continue current care. Awaiting reevaluation by surgery. No further hypoglycemic episode noted. (1) Perirectal abscess Current Visit: Yes Status: Acute Plan to address problem: Continue supportive care. Continue antibiotics therapy Continue wound care management. If patient still unable to care for himself we will have another discussion with him about possible diverting colostomy. (2) Rectal fistula Current Visit: Yes Status: Acute Plan to address problem: SURGICAL CONSULT WITH LACE AND TEXTILES RESTORER SURGEON. (3) IDDM (insulin dependent diabetes mellitus) Current Visit: Yes Status: Chronic Plan to address problem: Recent last A1c 7.1 a week ago Cont Home Insulin and coverage (4) BPH (benign prostatic hyperplasia) Current Visit: Yes Status: Chronic Qualifiers: Lower urinary tract symptom presence: symptoms present Plan to address problem: Cont Flomax (5) Malnutrition Current Visit: Yes Status: Acute Qualifiers: Protein-calorie malnutrition severity: severe Plan to address problem: Albumin 2.1 Dietitian consult Dietary supplements ordered (6) care home resident secondary to mental delay. Continue supportive care DVT and GI prophylaxis Hospitalist Physical - Constitutional Vitals: Temp Pulse Resp BP Pulse Ox 98.1 F 102 H 18 92/60 94 05/04/20 07:20 05/04/20 07:20 05/04/20 07:20 05/04/20 07:20 05/04/20 07:20 General appearance: Present: mild distress Results - Labs CBC & Chem 7: 04/30/20 18:53 07 18:53 Labs: Laboratory Last Values WBC 6.3 K/mm3 (4.5-11.0) 04/30/20 18:53 RBC 3.57 M/mm3 (3.65-5.03) L 04/30/20 18:53 Hgb 10.1 gm/dl (11.8-15.2) L 04/30/20 18:53 Hct 31.9 % (35.5-45.6) L 04/30/20 18:53 MCV 89 fl (84-94) 04/30/20 18:53 MCH 28 pg (28-32) 04/30/20 18:53 MCHC 32 % (32-34) 04/30/20 18:53 RDW 17.1 % (13.2-15.2) H 04/30/20 18:53 Plt Count 326 K/mm3 (140-440) 04/30/20 18:53 Lymph % (Auto) 26.0 % (13.4-35.0) 04/30/20 18:53 [place] % (Auto) 13.2 % (0.0-7.3) H 04/30/20 18:53 Eos % (Auto) 1.5 % (0.0-4.3) 04/30/20 18:53 Baso % (Auto) 0.3 % (0.0-1.8) 04/30/20 18:53 Lymph # 1.6 K/mm3 (1.2-5.4) 04/30/20 18:53 [place] # 0.8 K/mm3 (0.0-0.8) 04/30/20 18:53 Eos # 0.1 K/mm3 (0.0-0.4) 04/30/20 18:53 Baso # 0.0 K/mm3 (0.0-0.1) 04/30/20 18:53 Seg Neutrophils % 59.0 % (40.0-70.0) 04/30/20 18:53 Seg Neutrophils # 3.7 K/mm3 (1.8-7.7) 04/30/20 18:53 Sodium 135 mmol/L (137-145) L 04/30/20 18:53 Potassium 3.9 mmol/L (3.6-5.0) 04/30/20 18:53 Chloride 95.3 mmol/L (98-107) L 04/30/20 18:53 Carbon Dioxide 28 mmol/L (22-30) 04/30/20 18:53 Anion Gap 16 mmol/L 04/30/20 18:53 BUN 6 mg/dL (9-20) L 04/30/20 18:53 Creatinine 0.7 mg/dL (0.8-1.5) L 04/30/20 18:53 Estimated GFR > 60 ml/min 04/30/20 18:53 BUN/Creatinine Ratio 9 % 04/30/20 18:53 Glucose 384 mg/dL (75-100) H 04/30/20 18:53 POC Glucose 192 (70-105) H 05/04/20 07:11 Calcium 9.1 mg/dL (8.4-10.2) 04/30/20 18:53 Total Bilirubin 0.30 mg/dL (0.1-1.2) 04/30/20 18:53 AST 54 units/L (5-40) H 04/30/20 18:53 ALT 58 units/L (7-56) H 04/30/20 18:53 Alkaline Phosphatase 636 units/L (35-129) H 04/30/20 18:53 Total Protein 7.4 g/dL (6.3-8.2) 04/30/20 18:53 Albumin 3.4 g/dL (3.9-5) L 04/30/20 18:53 Albumin/Globulin Ratio 0.9 % 04/30/20 18:53 Urine Color Yellow (Yellow) 05/01/20 04:25 Urine Turbidity Clear (Clear) 05/01/20 04:25 Urine pH 5.0 (5.0-7.0) 05/01/20 04:25 Ur Specific [place] 1.016 (1.003-1.030) 05/01/20 04:25 Urine Protein <15 mg/dl mg/dL (Negative) 05/01/20 04:25 Urine Glucose (UA) >=500 mg/dL (Negative) 05/01/20 04:25 Urine Ketones Neg mg/dL (Negative) 05/01/20 04:25 Urine Blood Neg (Negative) 05/01/20 04:25 Urine Nitrite Neg (Negative) 05/01/20 04:25 Urine Bilirubin Neg (Negative) 05/01/20 04:25 Urine Urobilinogen < 2.0 mg/dL (<2.0) 05/01/20 04:25 Ur Leukocyte Esterase Neg (Negative) 05/01/20 04:25 Urine WBC (Auto) 1.0 /HPF (0.0-6.0) 05/01/20 04:25 Urine RBC (Auto) < 1.0 /HPF (0.0-6.0) 05/01/20 04:25 U Epithel Cells (Auto) < 1.0 /HPF (0-13.0) 05/01/20 04:25 Urine Mucus Few /HPF 05/01/20 04:25 Microbiology: Microbiology 04/30/20 18:53 Peripheral/Venous Blood Culture - Preliminary NO GROWTH AFTER 72 HOURS 04/30/20 18:58 Peripheral/Venous Blood Culture - Preliminary NO GROWTH AFTER 72 HOURS Ambrocio/IV: Voiding Method Toilet IV Catheter Type [right arm] INT / Saline Lock Active Medications - Current Medications Current Medications: Generic Name Dose Route Start Last Admin Trade Name Freq PRN Reason Stop Dose Admin Acetaminophen 650 mg 05/01/20 02:56 Tylenol PO Q4H PRN Fever >101 Dextrose 0 ml 05/01/20 02:48 D50w (25gm) Syringe IV Q30MIN PRN Hypoglycemia Protocol Hydromorphone HCl 1 mg 05/01/20 02:53 05/04/20 06:18 Dilaudid IV 1 mg Q4H PRN Administration Pain , Severe (7-10) Piperacillin Sod/Tazobactam Sod 4.5 gm in 100 mls @ 200 mls/hr 05/01/20 06:00 05/04/20 06:14 Zosyn/Ns 4.5gm/100ml IV 200 mls/hr Q6HR DMITRIY Administration Protocol Insulin Glargine 15 units 05/03/20 22:00 05/03/20 21:02 Lantus SUB-Q 15 units QHS DMITRIY Administration Insulin Human Regular 0 units 05/01/20 03:00 05/04/20 03:00 Humulin R SUB-Q Not Given Q4H [facility] Protocol Miscellaneous Medication 1 each 05/01/20 11:00 05/03/20 20:37 Non-Formulary PO 1 each TID DMITRIY Administration Miscellaneous Medication 750 mg 05/01/20 20:00 Balsalazide Disodium [Colazal] PO TID [facility] Miscellaneous Medication 300 mg 05/01/20 22:00 Ursodiol [Ursodiol] PO BID [facility] Olanzapine 5 mg 05/02/20 10:00 05/03/20 11:35 Zyprexa PO Not Given DAILY [facility] Ondansetron HCl 4 mg 05/01/20 02:56 Zofran IV Q8H PRN Nausea And Vomiting Oxycodone/Acetaminophen 1 tab 05/01/20 15:21 05/03/20 11:24 Percocet 5/325 PO 1 tab Q6H PRN Administration Pain, Moderate (4-6) Potassium Chloride 10 meq 05/01/20 22:00 05/03/20 22:03 K-Dur PO 10 meq BID DMITRIY Administration Tamsulosin HCl 0.4 mg 05/02/20 10:00 05/03/20 11:36 Flomax PO Not Given QDAY [facility] Zinc Oxide 1 applic 05/01/20 22:00 05/03/20 22:10 Zinc Oxide TP 1 applic BID DMITRIY Administration
[2020-05-04] MEDS: POTASSIUM CHLORIDE ER 20 MEQ TAB PO SCH (09:35)
[2020-05-04] MEDS: oxyCODONE /ACETAMINOPHEN 5-325MG TAB PO PRN (09:36)
[2020-05-04] MEDS: TAMSULOSIN 0.4 MG CAP PO SCH (09:37)
[2020-05-04] MEDS: LOPERAMIDE 1 MG/7.5 ML PO SCH (09:38)
--- NOTE | 2020-05-04 10:16 | Discharge Summary ---
Providers - Providers Date of Admission: 05/01/20 02:03 Attending physician: SARAH EARL MD 05/01/20 01:29 Consult to Physician [CONS] Routine Comment: Consulting Provider: MEGAN LEWIS Physician Instructions: Reason For Exam: RECTAL FIST 05/04/20 08:53 Consult to Case Management [CONS] Routine Services Needed at Discharge: Circuit Court Magistrate Notified:: cm Additional Physician Instructions: placement 05/04/20 08:54 Consult to Wound/ET Nurse [CONS] Routine Reason For Exam: wound eval Primary care physician: APPLIED RESEARCH DIRECTOR Hospitalization Reason for admission: Perirectal abscess Condition: Stable Hospital course: Patient is 34 years old male with no significant past medical history except multiple hospitalization for perirectal abscess. 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 He reports that he has been doing the sitz bath twice daily but has not been able to keep up with dressing changes. Although while in the hospital is been observed that he cannot do the sitz bath. An attempt to place him into SNF facility last time was unsuccessful due to insurance reasons. He has been on multiple antibiotics including meropenem and returns with worsening pain. He was seen by surgery with recommendation that possibly an diverting colostomy would be best for this patient although caring for his disease has been a challenge. A last ditch effort is being done to see if we can get the patient trained on how to provide adequate care although his mental capacity seems to be a barrier. However also the patient does not want to have this procedure done. No new infection is noted. 05/03: Adjust blood glucose to prevent hypoglycemia, will need assistance with case management for discharge plan 05/04: Patient clinically stable no urgency at this time to pursue diverting colostomy again patient is refusing this procedure at this time. No fever no indication for continued antibiotics will continue Imodium continue to encourage sitz bath Case management has discussed with the accepting facility patient will be discharged to follow-up outpatient. (1) Perirectal abscess Current Visit: Yes Status: Acute Plan to address problem: Continue supportive care. No evidence of New or ongoing infection Continue antibiotics therapy Continue wound care management. If patient still unable to care for himself we will have another discussion with him about possible diverting colostomy. (2) Rectal fistula Current Visit: Yes Status: Acute Plan to address problem: SURGICAL CONSULT WITH NURSE INFORMATICS EDUCATOR SURGEON. (3) IDDM (insulin dependent diabetes mellitus) Current Visit: Yes Status: Chronic Plan to address problem: Recent last A1c 7.1 a week ago Cont Home Insulin and coverage (4) BPH (benign prostatic hyperplasia) Current Visit: Yes Status: Chronic Qualifiers: Lower urinary tract symptom presence: symptoms present Plan to address problem: Cont Flomax (5) Malnutrition Current Visit: Yes Status: Acute Qualifiers: Protein-calorie malnutrition severity: severe Plan to address problem: Albumin 2.1 Dietitian consult Dietary supplements ordered (6) [facility] secondary to mental delay. Continue supportive care Disposition: [id number] [facility] Time spent for discharge: 35 minutes Core Measure Documentation - Palliative Care Palliative Care/ Comfort Measures: Not Applicable - Core Measures Any of the following diagnoses?: none Exam - Physical Exam Narrative exam: General appearance: Present: no acute distress, well-nourished, reports generalized pain - EENT Eyes: PERRL, EOM intact ENT: hearing intact, clear oral mucosa Ears: bilateral: normal - Neck Neck: supple, normal ROM - Respiratory Respiratory effort: normal Respiratory: bilateral: CTA - Breasts Breasts: normal - Cardiovascular Rhythm: regular Heart Sounds: Present: S1 & S2. Absent: gallop, rub Extremities: pulses intact, No edema, normal color, Full ROM, abnormal wounds noted - Gastrointestinal General gastrointestinal: Present: soft, non-tender, non-distended, normal bowel sounds - Genitourinary Male genitourinary: normal - Integumentary Integumentary: Wounds noted. - Musculoskeletal Musculoskeletal: 1, strength equal bilaterally - Constitutional Vitals: Temp Pulse Resp BP Pulse Ox 98.1 F 102 H 18 92/60 94 05/04/20 07:20 05/04/20 07:20 05/04/20 07:20 05/04/20 07:20 05/04/20 07:20 Plan Activity: advance as tolerated, fall precautions Diet: low fat Special Instructions: record daily weights, record daily BP diary, other (Sitz bath twice a day) Follow up with: AMOR ALARCON MD [Primary Care Provider] - 3-5 Days HUMERA DRAKE MD [Staff Physician] - 7 Days Prescriptions: Loperamide [Imodium] 2 mg PO TID #30 capsule oxyCODONE /ACETAMINOPHEN [Percocet 5/325 mg] 1 tab PO Q6H PRN #14 tablet PRN Reason: Pain, Moderate (4-6)
[2020-05-04 11:24] VITALS: BP 106/65
[2020-05-04] MEDS: ZINC OXIDE 20% OINT 28.35 GM TP SCH (11:25)
== END 2020-05-04 13:58 | disposition home health service (06) | DRG 393 ==
LOC: ED 16:22 → 3B-SURG 05-01 02:03
PROVIDERS: ADMIT Internal Medicine; ATTEND Internal Medicine
DX: K60.4 Rectal fistula (principal); E43 Unspecified severe protein-calorie malnutrition; Z88.2 Allergy status to sulfonamides; Z79.4 Long term (current) use of insulin; E11.9 Type 2 diabetes mellitus without complications; N40.0 Benign prostatic hyperplasia without lower urinary tract symptoms
CPT/HCPCS: 36415; 80053; 81001; 82962; 85025; 87040; G0378; A6250; J1170; J1815; J2543; J3246; J7030; J7040

== ENCOUNTER 2020-06-16 21:12 | Observation (INO) | payer SELFPAY ==
[2020-06-17 00:34] LABS: Basophils % (Auto) 0.2 % (0.0-1.8); Eosinophils % (Auto) 0.7 % (0.0-4.3); Hemoglobin 9.5 gm/dl (11.8-15.2); Lymphocytes # (Auto) 1.5 K/mm3 (1.2-5.4); Lymphocytes % (Auto) 26.1 % (13.4-35.0); Mean Corpuscular HGB Conc 33 % (32-34); Mean Corpuscular Volume 83 fl (84-94); Monocytes # (Auto) 0.7 K/mm3 (0.0-0.8); Monocytes % (Auto) 11.8 % (0.0-7.3); Platelet Count 213 K/mm3 (140-440); Red Blood Count 3.48 M/mm3 (3.65-5.03)
[2020-06-17 00:35] LABS: BUN/Creatinine Ratio 5; Blood Urea Nitrogen 4 mg/dL (9-20); Calcium 8.8 mg/dL (8.4-10.2); Hemolysis Index 11
[2020-06-17] MEDS ORDERED: SODIUM CHLORIDE 0.9% 1000 ML 1,000 ML IV ONE ×3 (01:08→04:39)
[2020-06-17] MEDS ORDERED: POTASSIUM CHLORIDE ER 20 MEQ TAB PO ONE (01:08)
[2020-06-17] MEDS ORDERED: MAGNESIUM SULFATE 2 GM/50 ML BAG IV ONE (01:30)
[2020-06-17 01:44] LABS: Bilirubin,Urine NEG (Negative); Blood,Urine NEG (Negative); Color,Urine Colorless (Yellow); Mucus,Urine FEW /HPF; Protein,Urine <15 mg/dL mg/dL (Negative); RBC,Urine < 1.0 /HPF (0.0-6.0); Urobilinogen,Urine < 2.0 mg/dL (<2.0); WBC,Urine < 1.0 /HPF (0.0-6.0)
--- NOTE | 2020-06-17 02:22 | Emergency Department Report ---
- General Chief complaint: Skin/Abscess/Foreign Body Stated complaint: ABSCESS Time Seen by Provider: 06/17/20 00:57 Source: EMS, old records reviewed Mode of arrival: Ambulatory Limitations: No Limitations - History of Present Illness Initial comments: 34-year-old male with a history of complicated perirectal fistula, status post incision and drainage, and seton placement, who also has a history of diabetes, may have a history of cognitive and/or developmental delay presents to the hospital complaining of worsening perirectal pain and drainage x3 days. Patient states that the drainage is now green and malodorous. Continues to have fecal incontinence. He states he has been trying his best to take sitz bath and keep the area clean. Patient denies fever. Patient also states that he said that someone was supposed to come out and help him take care of his wounds but they have not. He is not currently on antibiotics. As per Dr. Hankins's note from last ER visit May 14 He was admitted to this hospital in the beginning of the April for rectal fistula, it was evaluated by our general surgeon, Dr. Aleman, who is of the opinion that the wounds do not appear to be decompensated, and it was felt that the main problem was that the patient is not caring for his wounds. He was offered a diverting colostomy which he declined. The patient "went back and forth and ultimately said he did not want to proceed." The patients case was discussed with his pillowcase folder, Ms. Nelia Browning, [phone] at great length, and it is indicated that the aforementioned pillowcase folder would talk to her team and then get back to the general surgeon on the results of the discussion. In addition, the aforementioned general surgeon initiated Imodium "to see if I can slow down the liquid stool." Routine wound care was managed recommended at that time. Patient presents today with hyperglycemia and is prescribed twice daily insulin dosing. Patient states he did not take any of his insulin today. He denies nausea, vomiting, or abdominal pain. Patient also has presented here in the past with hypokalemia and hypomagnesemia. as per case management note 05/15/20 10:28 - Case Management Note by JESS HAHN Acct Num: [id number] : 1985 Patient Age: 34 DCP received a call from Pauline Seymour of [facility] ,informed DCP that pt caregiver Ms. Hudson at [facility] has been taught to do dressing changes for pt. Initialized on 05/15/20 10:28 - END OF NOTE so it appears that pt was suppose to hae someone come to help care for the pt's wound as per medical record pt is still not open to receiving a diverting colostomy as recently recommended by general surgeon Dr. Aleman - Related Data Home Medications Medication Instructions Recorded Confirmed Last Taken Balsalazide Disodium [Colazal] 750 mg PO TID 03/31/20 05/01/20 Unknown Insulin Detemir [Levemir VIAL] 25 unit SQ QHS 03/31/20 05/01/20 1 Day Ago ~04/30/20 Insulin NPH/Regular [NovoLIN 70/30] 4 unit SUB-Q BID 03/31/20 05/01/20 Unknown OLANZapine [Zyprexa] 5 mg PO DAILY 03/31/20 05/01/20 Unknown Potassium Chloride [K-Dur] 10 meq PO BID 03/31/20 05/01/20 Unknown Tamsulosin [Flomax] 0.4 mg PO QDAY 03/31/20 05/01/20 Unknown ursodioL [Ursodiol] 300 mg PO BID 03/31/20 05/01/20 Unknown Previous Rx's Medication Instructions Recorded Last Taken Type Acetaminophen [Acetaminophen TAB] 650 mg PO Q4H PRN tablet 04/04/20 Unknown Rx Zinc Oxide 1 applic TP BID #7 tube 04/12/20 Unknown Rx Loperamide [Imodium] 2 mg PO TID #30 capsule 05/04/20 Unknown Rx oxyCODONE /ACETAMINOPHEN [Percocet 1 tab PO Q6H PRN #14 tablet 05/04/20 Unknown Rx 5/325 mg] Magnesium Oxide [Mag-Ox] 400 mg PO QDAY #14 tablet 05/14/20 Unknown Rx Potassium Chloride 20 meq PO QDAY #14 packet 05/14/20 Unknown Rx Allergies Allergy/AdvReac Type Severity Reaction Status Date / Time Sulfa (Sulfonamide Allergy Rash Verified 05/06/20 09:28 Antibiotics) Abscess Boil HPI - HPI Chief Complaint: Skin/Abscess/Foreign Body Stated Complaint: ABSCESS Time Seen by Provider: 06/17/20 00:57 Home Medications: Home Medications Medication Instructions Recorded Confirmed Last Taken Balsalazide Disodium [Colazal] 750 mg PO TID 03/31/20 05/01/20 Unknown Insulin Detemir [Levemir VIAL] 25 unit SQ QHS 03/31/20 05/01/20 1 Day Ago ~04/30/20 Insulin NPH/Regular [NovoLIN 70/30] 4 unit SUB-Q BID 03/31/20 05/01/20 Unknown OLANZapine [Zyprexa] 5 mg PO DAILY 03/31/20 05/01/20 Unknown Potassium Chloride [K-Dur] 10 meq PO BID 03/31/20 05/01/20 Unknown Tamsulosin [Flomax] 0.4 mg PO QDAY 03/31/20 05/01/20 Unknown ursodioL [Ursodiol] 300 mg PO BID 03/31/20 05/01/20 Unknown Previous Rx's Medication Instructions Recorded Last Taken Type Acetaminophen [Acetaminophen TAB] 650 mg PO Q4H PRN tablet 04/04/20 Unknown Rx Zinc Oxide 1 applic TP BID #7 tube 04/12/20 Unknown Rx Loperamide [Imodium] 2 mg PO TID #30 capsule 05/04/20 Unknown Rx oxyCODONE /ACETAMINOPHEN [Percocet 1 tab PO Q6H PRN #14 tablet 05/04/20 Unknown Rx 5/325 mg] Magnesium Oxide [Mag-Ox] 400 mg PO QDAY #14 tablet 05/14/20 Unknown Rx Potassium Chloride 20 meq PO QDAY #14 packet 05/14/20 Unknown Rx Allergies/Adverse Reactions: Allergies Allergy/AdvReac Type Severity Reaction Status Date / Time Sulfa (Sulfonamide Allergy Rash Verified 05/06/20 09:28 Antibiotics) ED Review of Systems ROS: Stated complaint: ABSCESS Other details as noted in HPI Comment: All other systems reviewed and negative ED Past Medical Hx - Past Medical History Hx Hypertension: No Hx Heart Attack/AMI: No Hx Congestive Heart Failure: No Hx Diabetes: Yes Hx Deep Vein Thrombosis: No Hx Pulmonary Embolism: No Hx Liver Disease: No Hx Renal Disease: No Hx Sickle Cell Disease: No Hx Arthritis: No Hx Seizures: No Hx Asthma: No Hx COPD: No Hx HIV: No Additional medical history: Left perianal abscess - Surgical History Hx Pacemaker: No Hx Internal Defibrillator: No Hx Cholecystectomy: No Hx Appendectomy: No Additional Surgical History: Incision and drainage perianal abscess - Social History Smoking Status: Never Smoker Substance Use Type: None - Medications Home Medications: Home Medications Medication Instructions Recorded Confirmed Last Taken Type Balsalazide Disodium [Colazal] 750 mg PO TID 03/31/20 05/01/20 Unknown History Insulin Detemir [Levemir VIAL] 25 unit SQ QHS 03/31/20 05/01/20 1 Day Ago History ~04/30/20 Insulin NPH/Regular [NovoLIN 70/30] 4 unit SUB-Q BID 03/31/20 05/01/20 Unknown History OLANZapine [Zyprexa] 5 mg PO DAILY 03/31/20 05/01/20 Unknown History Potassium Chloride [K-Dur] 10 meq PO BID 03/31/20 05/01/20 Unknown History Tamsulosin [Flomax] 0.4 mg PO QDAY 03/31/20 05/01/20 Unknown History ursodioL [Ursodiol] 300 mg PO BID 03/31/20 05/01/20 Unknown History Acetaminophen [Acetaminophen TAB] 650 mg PO Q4H PRN tablet 04/04/20 05/01/20 Unknown Rx Zinc Oxide 1 applic TP BID #7 tube 04/12/20 05/01/20 Unknown Rx Loperamide [Imodium] 2 mg PO TID #30 capsule 05/04/20 Unknown Rx oxyCODONE /ACETAMINOPHEN [Percocet 1 tab PO Q6H PRN #14 tablet 05/04/20 Unknown Rx 5/325 mg] Magnesium Oxide [Mag-Ox] 400 mg PO QDAY #14 tablet 05/14/20 Unknown Rx Potassium Chloride 20 meq PO QDAY #14 packet 05/14/20 Unknown Rx ED Physical Exam - General Limitations: No Limitations - Other Other exam information: General: No acute distress Head: Atraumatic Eyes: normal appearance ENT: Moist mucous membranes Neck: Normal appearance, no midline tenderness Chest: Clear to auscultation bilaterally CV: Regular rate and rhythm Abdomen: Soft, normal bowel sounds, nontender, nondistended, no rebound or guarding Rectal: setonin place, mild drainage around tube, tenderness to perineal area Back: Normal inspection Extremity: Normal inspection, full range of motion Neuro: Alert, no facial asymmetry, speech clear, no gross motor sensory deficit Psych: Appropriate behavior Skin: No rash ED Course Vital Signs 06/16/20 06/17/20 06/17/20 22:50 01:13 03:00 Temperature 98.8 F 98.1 F Pulse Rate 112 H 86 Respiratory 16 16 Rate Blood Pressure 103/74 98/61 Blood Pressure 99/57 [Left] O2 Sat by Pulse 97 100 98 Oximetry 06/17/20 06/17/20 06/17/20 03:04 03:16 03:30 Temperature Pulse Rate Respiratory 16 Rate Blood Pressure 98/61 93/53 Blood Pressure [Left] O2 Sat by Pulse 98 99 Oximetry 06/17/20 06/17/20 03:46 04:00 Temperature Pulse Rate Respiratory Rate Blood Pressure 93/53 95/51 Blood Pressure [Left] O2 Sat by Pulse 98 97 Oximetry - Reevaluation(s) Reevaluation #1: 06/17/20 04:40 Patient received IV magnesium, p.o. KCl 40 mEq and IV, KCl 10 mEq as well as 2 L of normal saline and glucose decreased to the 400s. 10 of insulin ordered at this time with additional ivf - Consultations Consultation #1: 06/17/20 02:40 Vicky informed inpatient consult ordered ED Medical Decision Making - Lab Data Result diagrams: 06/16/20 23:41 06/17/20 Unknown Lab Results 06/16/20 06/16/20 06/17/20 Range/Units 23:41 23:41 00:58 WBC 5.9 (4.5-11.0) K/mm3 RBC 3.48 L (3.65-5.03) M/mm3 Hgb 9.5 L (11.8-15.2) gm/dl Hct 29.0 L (35.5-45.6) % MCV 83 L (84-94) fl MCH 27 L (28-32) pg MCHC 33 (32-34) % RDW 16.0 H (13.2-15.2) % Plt Count 213 (140-440) K/mm3 Lymph % (Auto) 26.1 (13.4-35.0) % [place] % (Auto) 11.8 H (0.0-7.3) % Eos % (Auto) 0.7 (0.0-4.3) % Baso % (Auto) 0.2 (0.0-1.8) % Lymph # 1.5 (1.2-5.4) K/mm3 [place] # 0.7 (0.0-0.8) K/mm3 Eos # 0.0 (0.0-0.4) K/mm3 Baso # 0.0 (0.0-0.1) K/mm3 Seg Neutrophils % 61.2 (40.0-70.0) % Seg Neutrophils # 3.6 (1.8-7.7) K/mm3 Sodium (137-145) mmol/L Potassium (3.6-5.0) mmol/L Chloride (98-107) mmol/L Carbon Dioxide (22-30) mmol/L Anion Gap mmol/L BUN (9-20) mg/dL Creatinine (0.8-1.3) mg/dL Estimated GFR ml/min BUN/Creatinine Ratio % Glucose (75-100) mg/dL POC Glucose > 500 H (70-105) Calcium (8.4-10.2) mg/dL Magnesium 1.30 L (1.7-2.3) mg/dL Urine Color (Yellow) Urine Turbidity (Clear) Urine pH (5.0-7.0) Ur Specific [place] (1.003-1.030) Urine Protein (Negative) mg/dL Urine Glucose (UA) (Negative) mg/dL Urine Ketones (Negative) mg/dL Urine Blood (Negative) Urine Nitrite (Negative) Urine Bilirubin (Negative) Urine Urobilinogen (<2.0) mg/dL Ur Leukocyte Esterase (Negative) Urine WBC (Auto) (0.0-6.0) /HPF Urine RBC (Auto) (0.0-6.0) /HPF U Epithel Cells (Auto) (0-13.0) /HPF Urine Mucus /HPF 06/17/20 06/17/20 Range/Units 01:13 Unknown WBC (4.5-11.0) K/mm3 RBC (3.65-5.03) M/mm3 Hgb (11.8-15.2) gm/dl Hct (35.5-45.6) % MCV (84-94) fl MCH (28-32) pg MCHC (32-34) % RDW (13.2-15.2) % Plt Count (140-440) K/mm3 Lymph % (Auto) (13.4-35.0) % [place] % (Auto) (0.0-7.3) % Eos % (Auto) (0.0-4.3) % Baso % (Auto) (0.0-1.8) % Lymph # (1.2-5.4) K/mm3 [place] # (0.0-0.8) K/mm3 Eos # (0.0-0.4) K/mm3 Baso # (0.0-0.1) K/mm3 Seg Neutrophils % (40.0-70.0) % Seg Neutrophils # (1.8-7.7) K/mm3 Sodium 126 L (137-145) mmol/L Potassium 3.0 L (3.6-5.0) mmol/L Chloride 83.7 L (98-107) mmol/L Carbon Dioxide 28 (22-30) mmol/L Anion Gap 17 mmol/L BUN 4 L (9-20) mg/dL Creatinine 0.8 (0.8-1.3) mg/dL Estimated GFR > 60 ml/min BUN/Creatinine Ratio 5 % Glucose 671 H* (75-100) mg/dL POC Glucose (70-105) Calcium 8.8 (8.4-10.2) mg/dL Magnesium (1.7-2.3) mg/dL Urine Color Colorless (Yellow) Urine Turbidity Clear (Clear) Urine pH 6.0 (5.0-7.0) Ur Specific [place] 1.024 (1.003-1.030) Urine Protein <15 mg/dl (Negative) mg/dL Urine Glucose (UA) >=500 (Negative) mg/dL Urine Ketones Neg (Negative) mg/dL Urine Blood Neg (Negative) Urine Nitrite Neg (Negative) Urine Bilirubin Neg (Negative) Urine Urobilinogen < 2.0 (<2.0) mg/dL Ur Leukocyte Esterase Neg (Negative) Urine WBC (Auto) < 1.0 (0.0-6.0) /HPF Urine RBC (Auto) < 1.0 (0.0-6.0) /HPF U Epithel Cells (Auto) < 1.0 (0-13.0) /HPF Urine Mucus Few /HPF - Medical Decision Making Patient has hyperglycemia without DKA however, patient has significant hypokalemia and hypomagnesemia. Patient high risk for further decrease in potassium levels with insulin dosage. Patient initially managed with normal saline, p.o. and IV potassium, and IV magnesium. Glucose will be rechecked after administration of IV fluids and meds and insulin can be provided at that time based on sliding scale regimen. As expected patient's perirectal complaints are chronic as per medical record review. He complains of increased drainage but he does not have leukocytosis or fever. I have ordered Zosyn antibiotic and consulted general surgeon to evaluate patient during admission. Patient may also need repeat case management evaluation since he states that no one has shown up to help with his wound care. Critical Care Time: No Critical care attestation.: If time is entered above; I have spent that time in minutes in the direct care of this critically ill patient, excluding procedure time. ED Disposition Clinical Impression: Perirectal abscess, Hyperglycemia due to diabetes mellitus, Noncompliance with medication regimen, Hypomagnesemia, Hypokalemia Disposition: OP ADMIT IP TO THIS HOSP Is pt being admited?: Yes Condition: Stable Time of Disposition: 02:50
[2020-06-17] MEDS ORDERED: PIPERACIL/TAZOBACTA 4.5/NS 100 4.5 GM/100 ML VIAL IV ONE (02:36)
[2020-06-17] MEDS ORDERED: POTASSIUM CHLORIDE 10 MEQ 10 MEQ/100 ML BAG IV ONE (02:39)
[2020-06-17] MEDS ORDERED: HYDROcodone/ACETAMINOPHEN 5-325 MG TAB PO ONE (02:42)
[2020-06-17] MEDS ORDERED: INSULIN REGULAR, HUMAN 100 UNIT/ML 3ML VIAL IV ONE (04:39)
[2020-06-17] MEDS ORDERED: INSULIN REGULAR, HUMAN 100 UNIT/ML 3ML VIAL ONE (04:52)
[2020-06-17] MEDS ORDERED: SODIUM CHLORIDE 0.9% 1000 ML 1,000 ML ONE (04:53)
[2020-06-17] MEDS ORDERED: INSULIN REGULAR, HUMAN 100 UNITS/1 ML ONE (05:00)
[2020-06-17] MEDS ORDERED: KETOROLAC 30 MG/1 ML INJ IV ONE (05:02)
[2020-06-17] MEDS ORDERED: KETOROLAC 30 MG/1 ML INJ ONE ×2 (06:08)
[2020-06-17] MEDS ORDERED: ACETAMINOPHEN 325 MG TAB PO PRN (07:31)
[2020-06-17] MEDS ORDERED: DEXTROSE 50% IN WATER (25GM) 50 ML SYRINGE IV PRN (07:31)
[2020-06-17] MEDS ORDERED: ONDANSETRON 4 MG/2 ML INJ IV PRN (07:31)
--- NOTE | 2020-06-17 07:46 | History and Physical Report ---
<KANDACE HUMPHRIES - Last Filed: 06/17/20 15:29> History of Present Illness Date of examination: 06/17/20 Date of admission: 06/17/20 02:51 Chief complaint: Perirectal pain and greenish drainage for 3 days History of present illness: This is a 34-year-old male with 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 Depression who presents to [facility] with pain and greenish and malodorus drainage from his perirectal abscess and fecal incontinence for 3 to 4 days. He was recently a dmitted on 05/15/2020 for rectal abscess and at that time refused a diverting colostomy and was discharged with home health care for wound care. He is a resident of a assisted house recently was released from senior care. He denies any nausea or vomiting. Fevers, chills, cough, hemoptysis, chest pain, recent sick contacts, or travel. Patient denies any known recent exposure to COVID-19. In the emergency department he was found with hyperglycemia (BG 671), hypokalemia (3), hypomagnesemia (1.8), hyponatremia (126). In the emergency department he received 40meq KCl PO, 10meq KCl IV, 3 L normal saline, 10 units of insulin, 2 g of magnesium and Zosyn x1 dose. Dr. Aleman was consulted in ED. He will be admitted under the hospitalist service for a draining fistula, electrolyte imbalances and hyperglycemia and initiated on antibiotics and electrolyte replacement as needed. ID was also consulted. Past History Past Medical History: diabetes Past Surgical History: Other (I&D of rectal abcess and placement of seton drain) Social history: single, smoking (1/2 ppd x 10 years), full code. denies: alcohol abuse, prescription drug abuse, IV drug use Family history: other (does not know family history) Medications and Allergies Allergies Allergy/AdvReac Type Severity Reaction Status Date / Time Sulfa (Sulfonamide Allergy Rash Verified 05/06/20 09:28 Antibiotics) Home Medications Medication Instructions Recorded Confirmed Last Taken Type Balsalazide Disodium [Colazal] 750 mg PO TID 03/31/20 05/01/20 Unknown History Insulin Detemir [Levemir VIAL] 25 unit SQ QHS 03/31/20 05/01/20 1 Day Ago History ~04/30/20 Insulin NPH/Regular [NovoLIN 70/30] 4 unit SUB-Q BID 03/31/20 05/01/20 Unknown History OLANZapine [Zyprexa] 5 mg PO DAILY 03/31/20 05/01/20 Unknown History Potassium Chloride [K-Dur] 10 meq PO BID 03/31/20 05/01/20 Unknown History Tamsulosin [Flomax] 0.4 mg PO QDAY 03/31/20 05/01/20 Unknown History ursodioL [Ursodiol] 300 mg PO BID 03/31/20 05/01/20 Unknown History Acetaminophen [Acetaminophen TAB] 650 mg PO Q4H PRN tablet 04/04/20 05/01/20 Unknown Rx Zinc Oxide 1 applic TP BID #7 tube 04/12/20 05/01/20 Unknown Rx Loperamide [Imodium] 2 mg PO TID #30 capsule 05/04/20 Unknown Rx oxyCODONE /ACETAMINOPHEN [Percocet 1 tab PO Q6H PRN #14 tablet 05/04/20 Unknown Rx 5/325 mg] Magnesium Oxide [Mag-Ox] 400 mg PO QDAY #14 tablet 05/14/20 Unknown Rx Potassium Chloride 20 meq PO QDAY #14 packet 05/14/20 Unknown Rx Active Meds: Active Medications Acetaminophen (Tylenol) 650 mg PO Q4H PRN PRN Reason: Pain MILD(1-3)/Fever >100.5/VO Dextrose (D50w (25gm) Syringe) 50 ml IV Q30MIN PRN; Protocol PRN Reason: Hypoglycemia Docusate Sodium (Colace) 100 mg PO BID [facility] Insulin Human Lispro (Humalog) 0 unit SUB-Q Q6HR DMITRIY; Protocol Miscellaneous Medication (Ursodiol [Ursodiol]) 300 mg PO BID DMITRIY Morphine Sulfate (Morphine) 2 mg IV Q4H PRN PRN Reason: Pain, Moderate (4-6) Olanzapine (Zyprexa) 5 mg PO DAILY DMITRIY Ondansetron HCl (Zofran) 4 mg IV Q8H PRN PRN Reason: Nausea And Vomiting Oxycodone/Acetaminophen (Percocet 5/325) 1 tab PO Q6H PRN PRN Reason: Pain, Moderate (4-6) Senna (Senokot) 8.6 mg PO Q12HR [facility] Sodium Chloride (Sodium Chloride Flush Syringe 10 Ml) 10 ml IV BID DMITRIY Sodium Chloride (Sodium Chloride Flush Syringe 10 Ml) 10 ml IV PRN PRN PRN Reason: LINE FLUSH Tamsulosin HCl (Flomax) 0.4 mg PO QDAY [facility] Review of Systems Constitutional: no weight loss, no weight gain, no fever, no chills, no sweats, no night sweats, no anorexia, no fatigue, no weakness, no lethargy Ears, nose, mouth and throat: deferred, no ear pain, no ear discharge, no tinnitis, no decreased hearing, no nose pain, no nasal congestion, no nasal discharge, no sinus pressure Cardiovascular: no chest pain, no orthopnea, no palpitations, no rapid/irregular heart beat, no edema, no syncope, no lightheadedness, no shortness of breath, no dyspnea on exertion, no high blood pressure, no leg edema Respiratory: no cough, no cough with sputum, no excessive sputum, no hemoptysis, no shortness of breath, no dyspnea on exertion, no congestion, no wheezing, no home oxygen Gastrointestinal: diarrhea, other, no abdominal pain, no nausea, no vomiting, no constipation Genitourinary Male: no dysuria, no hematuria, no discharge, no urinary frequ ency, no urinary hesitancy, no nocturia Rectal: pain, incontinence (rectal pain with greenish and malodorus drainage and small amount of blood streaks noted in drainge), no itching, no hemorrhoids Musculoskeletal: no neck stiffness, no neck pain, no shooting arm pain, no arm numbness/tingling, no low back pain, no shooting leg pain, no leg numbness /tingling, no frequent falls Integumentary: no rash, no pruritis, no redness, no sores Neurological: no head injury, no transient paralysis, no paralysis, no weakness, no parathesias, no numbness, no tingling, no vertigo Psychiatric: depression (diagnosed at [facility]), no anxiety, no memory loss Endocrine: no cold intolerance, no heat intolerance, no polyphagia, no excessive thirst, no polydipsia, no polyuria, no nocturia Hematologic/Lymphatic: no easy bruising, no easy bleeding Allergic/Immunologic: no urticaria, no allergic rhinitis, no wheezing, no persistent infections Exam - Constitutional Vitals: Temp Pulse Resp BP Pulse Ox 98.1 F 86 16 98/59 99 06/17/20 01:13 06/17/20 01:13 06/17/20 06:36 06/17/20 06:30 06/17/20 06:30 General appearance: Present: no acute distress - EENT Eyes: Present: PERRL, EOM intact ENT: hearing intact, poor dentition - Neck Neck: Present: supple, normal ROM - Respiratory Respiratory effort: normal Respiratory: bilateral: wheezing (lower expiratory wheezes) - Cardiovascular Rhythm: regular Heart Sounds: Present: S1 & S2. Absent: gallop, systolic murmur, diastolic murmur - Extremities Extremities: no ischemia, pulses intact, pulses symmetrical, No edema, normal temperature, normal color, Full ROM Peripheral Pulses: within normal limits - Abdominal General gastrointestinal: Present: soft, non-tender, non-distended, normal bowel sounds Male genitourinary: Absent: urethral discharge - Rectal Rectal Exam: tenderness, other (brown drainage from perirectal drain) - Integumentary Integumentary: Present: clear, warm, dry - Musculoskeletal Musculoskeletal: strength equal bilaterally - Psychiatric Psychiatric: cooperative - Neurologic Neurologic: CNII-XII intact, no focal deficits, moves all extremities - Allied Health Allied health notes reviewed: case management HEART Score - HEART Score Troponin: WBC 5.9 K/mm3 (4.5-11.0) 06/16/20 23:41 RBC 3.48 M/mm3 (3.65-5.03) L 06/16/20 23:41 Hgb 9.5 gm/dl (11.8-15.2) L 06/16/20 23:41 Hct 29.0 % (35.5-45.6) L 06/16/20 23:41 MCV 83 fl (84-94) L 06/16/20 23:41 MCH 27 pg (28-32) L 06/16/20 23:41 MCHC 33 % (32-34) 06/16/20 23:41 RDW 16.0 % (13.2-15.2) H 06/16/20 23:41 Plt Count 213 K/mm3 (140-440) 06/16/20 23:41 Lymph % (Auto) 26.1 % (13.4-35.0) 06/16/20 23:41 Mcintosh % (Auto) 11.8 % (0.0-7.3) H 06/16/20 23:41 Eos % (Auto) 0.7 % (0.0-4.3) 06/16/20 23:41 Baso % (Auto) 0.2 % (0.0-1.8) 06/16/20 23:41 Lymph # 1.5 K/mm3 (1.2-5.4) 06/16/20 23:41 Mc[place]osh # 0.7 K/mm3 (0.0-0.8) 06/16/20 23:41 Eos # 0.0 K/mm3 (0.0-0.4) 06/16/20 23:41 Baso # 0.0 K/mm3 (0.0-0.1) 06/16/20 23:41 Seg Neutrophils % 61.2 % (40.0-70.0) 06/16/20 23:41 Seg Neutrophils # 3.6 K/mm3 (1.8-7.7) 06/16/20 23:41 Sodium 126 mmol/L (137-145) L 06/17/20 Unknown Potassium 3.0 mmol/L (3.6-5.0) L 06/17/20 Unknown Chloride 83.7 mmol/L (98-107) L 06/17/20 Unknown Carbon Dioxide 28 mmol/L (22-30) 06/17/20 Unknown Anion Gap 17 mmol/L 06/17/20 Unknown BUN 4 mg/dL (9-20) L 06/17/20 Unknown Creatinine 0.8 mg/dL (0.8-1.3) 06/17/20 Unknown Estimated GFR > 60 ml/min 06/17/20 Unknown BUN/Creatinine Ratio 5 % 06/17/20 Unknown Glucose 671 mg/dL (75-100) H* 06/17/20 Unknown POC Glucose 187 (70-105) H 06/17/20 06:28 Calcium 8.8 mg/dL (8.4-10.2) 06/17/20 Unknown Magnesium 1.30 mg/dL (1.7-2.3) L 06/17/20 00:58 Urine Color Colorless (Yellow) 06/17/20 01:13 Urine Turbidity Clear (Clear) 06/17/20 01:13 Urine pH 6.0 (5.0-7.0) 06/17/20 01:13 Ur Specific [place] 1.024 (1.003-1.030) 06/17/20 01:13 Urine Protein <15 mg/dl mg/dL (Negative) 06/17/20 01:13 Urine Glucose (UA) >=500 mg/dL (Negative) 06/17/20 01:13 Urine Ketones Neg mg/dL (Negative) 06/17/20 01:13 Urine Blood Neg (Negative) 06/17/20 01:13 Urine Nitrite Neg (Negative) 06/17/20 01:13 Urine Bilirubin Neg (Negative) 06/17/20 01:13 Urine Urobilinogen < 2.0 mg/dL (<2.0) 06/17/20 01:13 Ur Leukocyte Esterase Neg (Negative) 06/17/20 01:13 Urine WBC (Auto) < 1.0 /HPF (0.0-6.0) 06/17/20 01:13 Urine RBC (Auto) < 1.0 /HPF (0.0-6.0) 06/17/20 01:13 U Epithel Cells (Auto) < 1.0 /HPF (0-13.0) 06/17/20 01:13 Urine Mucus Few /HPF 06/17/20 01:13 Results - Labs CBC & Chem 7: 06/16/20 23:41 06/17/20 Unknown Labs: Laboratory Last Values WBC 5.9 K/mm3 (4.5-11.0) 06/16/20 23:41 RBC 3.48 M/mm3 (3.65-5.03) L 06/16/20 23:41 Hgb 9.5 gm/dl (11.8-15.2) L 06/16/20 23:41 Hct 29.0 % (35.5-45.6) L 06/16/20 23:41 MCV 83 fl (84-94) L 06/16/20 23:41 MCH 27 pg (28-32) L 06/16/20 23:41 MCHC 33 % (32-34) 06/16/20 23:41 RDW 16.0 % (13.2-15.2) H 06/16/20 23:41 Plt Count 213 K/mm3 (140-440) 06/16/20 23:41 Lymph % (Auto) 26.1 % (13.4-35.0) 06/16/20 23:41 Mcintosh % (Auto) 11.8 % (0.0-7.3) H 06/16/20 23:41 Eos % (Auto) 0.7 % (0.0-4.3) 06/16/20 23:41 Baso % (Auto) 0.2 % (0.0-1.8) 06/16/20 23:41 Lymph # 1.5 K/mm3 (1.2-5.4) 06/16/20 23:41 Mcintosh # 0.7 K/mm3 (0.0-0.8) 06/16/20 23:41 Eos # 0.0 K/mm3 (0.0-0.4) 06/16/20 23:41 Baso # 0.0 K/mm3 (0.0-0.1) 06/16/20 23:41 Seg Neutrophils % 61.2 % (40.0-70.0) 06/16/20 23:41 Seg Neutrophils # 3.6 K/mm3 (1.8-7.7) 06/16/20 23:41 Sodium 126 mmol/L (137-145) L 06/17/20 Unknown Potassium 3.0 mmol/L (3.6-5.0) L 06/17/20 Unknown Chloride 83.7 mmol/L (98-107) L 06/17/20 Unknown Carbon Dioxide 28 mmol/L (22-30) 06/17/20 Unknown Anion Gap 17 mmol/L 06/17/20 Unknown BUN 4 mg/dL (9-20) L 06/17/20 Unknown Creatinine 0.8 mg/dL (0.8-1.3) 06/17/20 Unknown Estimated GFR > 60 ml/min 06/17/20 Unknown BUN/Creatinine Ratio 5 % 06/17/20 Unknown Glucose 671 mg/dL (75-100) H* 06/17/20 Unknown POC Glucose 187 (70-105) H 06/17/20 06:28 Calcium 8.8 mg/dL (8.4-10.2) 06/17/20 Unknown Magnesium 1.30 mg/dL (1.7-2.3) L 06/17/20 00:58 Urine Color Colorless (Yellow) 06/17/20 01:13 Urine Turbidity Clear (Clear) 06/17/20 01:13 Urine pH 6.0 (5.0-7.0) 06/17/20 01:13 Ur Specific [place] 1.024 (1.003-1.030) 06/17/20 01:13 Urine Protein <15 mg/dl mg/dL (Negative) 06/17/20 01:13 Urine Glucose (UA) >=500 mg/dL (Negative) 06/17/20 01:13 Urine Ketones Neg mg/dL (Negative) 06/17/20 01:13 Urine Blood Neg (Negative) 06/17/20 01:13 Urine Nitrite Neg (Negative) 06/17/20 01:13 Urine Bilirubin Neg (Negative) 06/17/20 01:13 Urine Urobilinogen < 2.0 mg/dL (<2.0) 06/17/20 01:13 Ur Leukocyte Esterase Neg (Negative) 06/17/20 01:13 Urine WBC (Auto) < 1.0 /HPF (0.0-6.0) 06/17/20 01:13 Urine RBC (Auto) < 1.0 /HPF (0.0-6.0) 06/17/20 01:13 U Epithel Cells (Auto) < 1.0 /HPF (0-13.0) 06/17/20 01:13 Urine Mucus Few /HPF 06/17/20 01:13 Ambrocio/IV: IV Catheter Type [Left Forearm INT / Saline Lock ] Assessment and Plan VTE prophylaxis?: Chemical, Mechanical Plan of care discussed with patient/family: Yes - Patient Problems (1) Hyperglycemia Current Visit: No Status: Acute Plan to address problem: -BG on presentation to [facility] -Received 10 units of insulin in the emergency department -Sliding scale insulin -Accu-Cheks every 6 -Hypoglycemia protocol -Hemoglobin A1c pending -No surgical intervention recommended by surgery therefore cc diet started (2) Perirectal abscess Current Visit: Yes Status: Acute Plan to address problem: -Surgical consult requested -Infectious disease consult requested -Patient recently admitted April 2020 s/p I&D of left perineal abscess and seton placement; he refused a diverting colostomy and was discharged to a personal skilled nursing with dressing changes at home. -Received 1 dose of Zosyn in the emergency department -IV antibiotics: Flagyl and cefepime -06/17: Wound culture pending -WOCN consulted -06/16 UA (-) -Per surgery needed is to keep the area clean and dry, sitz bath daily and Imodium to his medication list in hopes of decreasing the liquid stool (3) Hypokalemia Current Visit: Yes Status: Acute Plan to address problem: -Presented with a potassium of 3 -Repleated in the emergency department with 40 carlos PO KCl, 10 meq KCL IV -CMP pending -Replete as necessary (4) Hypomagnesemia Current Visit: Yes Status: Acute Plan to address problem: - Repleted in the ED with 2g Mag Sulfate - CMP pending - Replete as needeed (5) IDDM (insulin dependent diabetes mellitus) Current Visit: No Status: Chronic Plan to address problem: - Home medication includes NPH/regular insulin 4 units twice daily and Levemir 25 units at bedtime - Presented with BG 671, received 10 units of insulin in the emergency department - SSI - Hypoglycemia protocol - Accuchek q 6 hours - CC diet (6) Tobacco abuse Current Visit: Yes Status: Chronic Plan to address problem: - Nicoderm TD - Smoking cessation counseling (7) DVT prophylaxis Current Visit: No Status: Acute Plan to address problem: -SCDs to bilateral lower extremities while in bed -Lovenox subcu (8) Full code status Current Visit: No Status: Acute <CARMEN MCDANIEL R - Last Filed: 06/18/20 09:31> History of Present Illness Date of admission: 06/17/20 02:51 Medications and Allergies Active Meds: Active Medications Acetaminophen (Tylenol) 650 mg PO Q4H PRN PRN Reason: Pain MILD(1-3)/Fever >100.5/VO Dextrose (D50w (25gm) Syringe) 50 ml IV Q30MIN PRN; Protocol PRN Reason: Hypoglycemia Enoxaparin Sodium (Enoxaparin) 40 mg SUB-Q QDAY@2200 DMITRIY Last Admin: 06/17/20 21:02 Dose: 40 mg Documented by: Potassium Chloride (Kcl 10meq/100ml) 10 meq in 100 mls @ 100 mls/hr IV ONCE ONE Stop: 06/18/20 10:59 Magnesium Sulfate (Magnesium Sulfate 2gm/50ml) 2 gm in 50 mls @ 25 mls/hr IV ONCE ONE Stop: 06/18/20 12:29 Sodium Chloride (Nacl 0.9% 1000 Ml) 1,000 mls @ 100 mls/hr IV DIRECT [facility] Insulin Glargine (Lantus) 25 units SUB-Q QHS [facility] Last Admin: 06/17/20 23:02 Dose: 25 units Documented by: Insulin Human Lispro (Humalog) 0 unit SUB-Q ACHS [facility]; Protocol Last Admin: 06/18/20 08:30 Dose: Not Given Documented by: Loperamide HCl (Imodium) 2 mg PO BID [facility] Last Admin: 06/17/20 21:03 Dose: 2 mg Documented by: Miscellaneous Medication (Ursodiol [Ursodiol]) 300 mg PO BID [facility] Morphine Sulfate (Morphine) 2 mg IV Q4H PRN PRN Reason: Pain, Moderate (4-6) Last Admin: 06/17/20 20:44 Dose: 2 mg Documented by: Nicotine (Habitrol) 7 mg TD QDAY [facility] Last Admin: 06/17/20 13:24 Dose: 7 mg Documented by: Olanzapine (Zyprexa) 5 mg PO DAILY [facility] Last Admin: 06/17/20 13:20 Dose: 5 mg Documented by: Ondansetron HCl (Zofran) 4 mg IV Q8H PRN PRN Reason: Nausea And Vomiting Oxycodone/Acetaminophen (Percocet 5/325) 1 tab PO Q6H PRN PRN Reason: Pain, Moderate (4-6) Last Admin: 06/18/20 04:24 Dose: 1 tab Documented by: Potassium Chloride (K-Dur) 40 meq PO QDAY [facility] Potassium Chloride (K-Dur) 40 meq PO ONCE ONE Stop: 06/18/20 09:27 Sodium Chloride (Sodium Chloride Flush Syringe 10 Ml) 10 ml IV BID [facility] Last Admin: 06/17/20 21:04 Dose: 10 ml Documented by: Sodium Chloride (Sodium Chloride Flush Syringe 10 Ml) 10 ml IV PRN PRN PRN Reason: LINE FLUSH Tamsulosin HCl (Flomax) 0.4 mg PO QDAY [facility] Last Admin: 06/17/20 13:25 Dose: 0.4 mg Documented by: Exam - Constitutional Vitals: Temp Pulse Resp BP Pulse Ox 98.0 F 74 18 97/66 96 06/18/20 05:01 06/18/20 05:01 06/18/20 05:01 06/18/20 05:01 06/18/20 05:01 Results - Labs CBC & Chem 7: 06/18/20 04:11 06/18/20 04:11 Labs: Laboratory Last Values WBC 4.2 K/mm3 (4.5-11.0) L 06/18/20 04:11 RBC 3.30 M/mm3 (3.65-5.03) L 06/18/20 04:11 Hgb 8.8 gm/dl (11.8-15.2) L 06/18/20 04:11 Hct 27.6 % (35.5-45.6) L 06/18/20 04:11 MCV 83 fl (84-94) L 06/18/20 04:11 MCH 27 pg (28-32) L 06/18/20 04:11 MCHC 32 % (32-34) 06/18/20 04:11 RDW 16.3 % (13.2-15.2) H 06/18/20 04:11 Plt Count 198 K/mm3 (140-440) 06/18/20 04:11 Lymph % (Auto) 30.3 % (13.4-35.0) 06/18/20 04:11 Mcintosh % (Auto) 9.1 % (0.0-7.3) H 06/18/20 04:11 Eos % (Auto) 1.7 % (0.0-4.3) 06/18/20 04:11 Baso % (Auto) 0.6 % (0.0-1.8) 06/18/20 04:11 Lymph # 1.3 K/mm3 (1.2-5.4) 06/18/20 04:11 [place]osh # 0.4 K/mm3 (0.0-0.8) 06/18/20 04:11 Eos # 0.1 K/mm3 (0.0-0.4) 06/18/20 04:11 Baso # 0.0 K/mm3 (0.0-0.1) 06/18/20 04:11 Seg Neutrophils % 58.3 % (40.0-70.0) 06/18/20 04:11 Seg Neutrophils # 2.4 K/mm3 (1.8-7.7) 06/18/20 04:11 Sodium 144 mmol/L (137-145) 06/18/20 04:11 Potassium 3.1 mmol/L (3.6-5.0) L 06/18/20 04:11 Chloride 107.5 mmol/L (98-107) H 06/18/20 04:11 Carbon Dioxide 25 mmol/L (22-30) 06/18/20 04:11 Anion Gap 15 mmol/L 06/18/20 04:11 BUN 4 mg/dL (9-20) L 06/18/20 04:11 Creatinine 0.6 mg/dL (0.8-1.3) L 06/18/20 04:11 Estimated GFR > 60 ml/min 06/18/20 04:11 BUN/Creatinine Ratio 7 % 06/18/20 04:11 Glucose 177 mg/dL (75-100) H 06/18/20 04:11 POC Glucose 129 (70-105) H 06/18/20 08:04 Hemoglobin A1c 14.0 % (4-6) H 06/17/20 08:02 Lactic Acid 1.60 mmol/L (0.7-2.0) 06/17/20 08:58 Calcium 8.1 mg/dL (8.4-10.2) L 06/18/20 04:11 Magnesium 1.10 mg/dL (1.7-2.3) L 06/18/20 04:11 Total Bilirubin 0.30 mg/dL (0.1-1.2) 06/17/20 08:02 AST 31 units/L (5-40) 06/17/20 08:02 ALT 19 units/L (7-56) 06/17/20 08:02 Alkaline Phosphatase 567 units/L (35-129) H 06/17/20 08:02 Total Protein 5.6 g/dL (6.3-8.2) L 06/17/20 08:02 Albumin 2.3 g/dL (3.9-5) L 06/17/20 08:02 Albumin/Globulin Ratio 0.7 % 06/17/20 08:02 Urine Color Colorless (Yellow) 06/17/20 01:13 Urine Turbidity Clear (Clear) 06/17/20 01:13 Urine pH 6.0 (5.0-7.0) 06/17/20 01:13 Ur Specific [place] 1.024 (1.003-1.030) 06/17/20 01:13 Urine Protein <15 mg/dl mg/dL (Negative) 06/17/20 01:13 Urine Glucose (UA) >=500 mg/dL (Negative) 06/17/20 01:13 Urine Ketones Neg mg/dL (Negative) 06/17/20 01:13 Urine Blood Neg (Negative) 06/17/20 01:13 Urine Nitrite Neg (Negative) 06/17/20 01:13 Urine Bilirubin Neg (Negative) 06/17/20 01:13 Urine Urobilinogen < 2.0 mg/dL (<2.0) 06/17/20 01:13 Ur Leukocyte Esterase Neg (Negative) 06/17/20 01:13 Urine WBC (Auto) < 1.0 /HPF (0.0-6.0) 06/17/20 01:13 Urine RBC (Auto) < 1.0 /HPF (0.0-6.0) 06/17/20 01:13 U Epithel Cells (Auto) < 1.0 /HPF (0-13.0) 06/17/20 01:13 Urine Mucus Few /HPF 06/17/20 01:13 Ambrocio/IV: Voiding Method Urinal IV Catheter Type [Left Forearm INT / Saline Lock ] Assessment and Plan Assessment and plan: I saw and evaluated the patient. I agree with the findings and the plan of care as documented in the Nurse Practitioner's~note.
[2020-06-17] MEDS ORDERED: SODIUM CHLORIDE 0.9% 1000 ML 1,000 ML IV SCH (08:15)
[2020-06-17] MEDS: MORPHINE 2 MG/1 ML INJ IV PRN ×4 (08:26→20:44)
[2020-06-17] MEDS: INSULIN LISPRO 100 UNIT/ML VIAL 3 mL SUB-Q SCH ×4 (08:27→23:01)
[2020-06-17 09:18] LABS: Alanine Aminotransferase 19 units/L (7-56); Albumin 2.3 g/dL (3.9-5); Blood Urea Nitrogen 3 mg/dL (9-20); Hemolysis Index 3
[2020-06-17 09:26] LABS: BUN/Creatinine Ratio 5
[2020-06-17] MEDS ORDERED: SENNOSIDES 8.6 MG TAB PO SCH (10:00)
[2020-06-17] MEDS ORDERED: DOCUSATE SODIUM 100 MG CAP PO SCH (10:00)
[2020-06-17] MEDS ORDERED: URSODIOL 300 MG PO SCH (10:00)
[2020-06-17] MEDS ORDERED: POTASSIUM CHLORIDE ER 20 MEQ TAB PO NR (11:31)
--- NOTE | 2020-06-17 13:02 | Consultation ---
History of Present Illness Consult date: 06/17/20 Reason for consult: wound care Requesting physician: MANSOOR TAYLOR Chief complaint: perianal pain - History of present illness History of present illness: 34yo M who is well-known to our service presented to the emergency department with a blood sugar near 700. General surgery was consulted for his chronic perianal wounds. Patient continues to report pain in that area. He wants pain meds. Past History Past Medical History: diabetes Past Surgical History: bowel surgery, Other (I&D of rectal abcess and placement of seton drain) Social history: single, smoking (1/2 ppd x 10 years), full code. denies: alcohol abuse, prescription drug abuse, IV drug use Family history: other (does not know family history) Medications and Allergies Allergies Allergy/AdvReac Type Severity Reaction Status Date / Time Sulfa (Sulfonamide Allergy Rash Verified 05/06/20 09:28 Antibiotics) Home Medications Medication Instructions Recorded Confirmed Last Taken Type Balsalazide Disodium [Colazal] 750 mg PO TID 03/31/20 05/01/20 Unknown History Insulin Detemir [Levemir VIAL] 25 unit SQ QHS 03/31/20 05/01/20 1 Day Ago History ~04/30/20 Insulin NPH/Regular [NovoLIN 70/30] 4 unit SUB-Q BID 03/31/20 05/01/20 Unknown History OLANZapine [Zyprexa] 5 mg PO DAILY 03/31/20 05/01/20 Unknown History Potassium Chloride [K-Dur] 10 meq PO BID 03/31/20 05/01/20 Unknown History Tamsulosin [Flomax] 0.4 mg PO QDAY 03/31/20 05/01/20 Unknown History ursodioL [Ursodiol] 300 mg PO BID 03/31/20 05/01/20 Unknown History Acetaminophen [Acetaminophen TAB] 650 mg PO Q4H PRN tablet 04/04/20 05/01/20 Unknown Rx Zinc Oxide 1 applic TP BID #7 tube 04/12/20 05/01/20 Unknown Rx Loperamide [Imodium] 2 mg PO TID #30 capsule 05/04/20 Unknown Rx oxyCODONE /ACETAMINOPHEN [Percocet 1 tab PO Q6H PRN #14 tablet 05/04/20 Unknown Rx 5/325 mg] Magnesium Oxide [Mag-Ox] 400 mg PO QDAY #14 tablet 05/14/20 Unknown Rx Potassium Chloride 20 meq PO QDAY #14 packet 05/14/20 Unknown Rx Active Meds: Active Medications Acetaminophen (Tylenol) 650 mg PO Q4H PRN PRN Reason: Pain MILD(1-3)/Fever >100.5/VO Dextrose (D50w (25gm) Syringe) 50 ml IV Q30MIN PRN; Protocol PRN Reason: Hypoglycemia Enoxaparin Sodium (Enoxaparin) 40 mg SUB-Q QDAY@2200 [facility] Metronidazole (Flagyl 500 Mg/100 Ml) 500 mg in 100 mls @ 100 mls/hr IV Q8HR [facility]; Protocol Stop: 06/18/20 22:59 Cefepime HCl (Cefepime/Ns 2 Gm/100 Ml) 2 gm in 100 mls @ 200 mls/hr IV Q8HR [facility]; Protocol Stop: 06/18/20 22:29 Sodium Chloride (Nacl 0.9% 1000 Ml) 1,000 mls @ 75 mls/hr IV DIRECT [facility] Stop: 06/17/20 21:34 Last Admin: 06/17/20 08:31 Dose: 75 mls/hr Documented by: Insulin Human Lispro (Humalog) 0 unit SUB-Q Q6HR [facility]; Protocol Last Admin: 06/17/20 08:27 Dose: 4 unit Documented by: Miscellaneous Medication (Ursodiol [Ursodiol]) 300 mg PO BID [facility] Morphine Sulfate (Morphine) 2 mg IV Q4H PRN PRN Reason: Pain, Moderate (4-6) Last Admin: 06/17/20 12:16 Dose: 2 mg Documented by: Nicotine (Habitrol) 7 mg TD QDAY [facility] Olanzapine (Zyprexa) 5 mg PO DAILY [facility] Ondansetron HCl (Zofran) 4 mg IV Q8H PRN PRN Reason: Nausea And Vomiting Oxycodone/Acetaminophen (Percocet 5/325) 1 tab PO Q6H PRN PRN Reason: Pain, Moderate (4-6) Potassium Chloride (K-Dur) 40 meq PO ONCE NR Stop: 06/17/20 16:00 Senna (Senokot) 8.6 mg PO Q12HR [facility] Sodium Chloride (Sodium Chloride Flush Syringe 10 Ml) 10 ml IV BID [facility] Sodium Chloride (Sodium Chloride Flush Syringe 10 Ml) 10 ml IV PRN PRN PRN Reason: LINE FLUSH Tamsulosin HCl (Flomax) 0.4 mg PO QDAY [facility] Review of Systems - Constitutional chronic pain, no fever, no chills - Cardiovascular no chest pain, no shortness of breath - Respiratory no cough - Gastrointestinal diarrhea, no nausea, no vomiting, no loss of appetite - Integumentary wounds Exam Vital Signs Temp Pulse Resp BP Pulse Ox 98.8 F 112 H 16 103/74 97 06/16/20 22:50 06/16/20 22:50 06/16/20 22:50 06/16/20 22:50 06/16/20 22:50 - General physical appearance Positive: no distress, no pain, other (does not appear ill) - Respiratory Positive: normal expansion, normal respiratory effort - Integumentary other ([place] drain is in place. Mucus is seen in the wounds. No signs of abscess formation. reactive erythema seen around the wound openings. ) - Neurologic Neurologic: alert and oriented to time, place and person - Psychiatric Psychiatric: appropriate mood/affect Results - Labs 06/16/20 23:41 06/17/20 Unknown Abnormal lab results 06/16/20 06/16/20 06/17/20 Range/Units 23:41 23:41 00:58 RBC 3.48 L (3.65-5.03) M/mm3 Hgb 9.5 L (11.8-15.2) gm/dl Hct 29.0 L (35.5-45.6) % MCV 83 L (84-94) fl MCH 27 L (28-32) pg RDW 16.0 H (13.2-15.2) % [place] % (Auto) 11.8 H (0.0-7.3) % Sodium (137-145) mmol/L Potassium (3.6-5.0) mmol/L Chloride (98-107) mmol/L BUN (9-20) mg/dL Creatinine (0.8-1.3) mg/dL Glucose (75-100) mg/dL POC Glucose > 500 H (70-105) Hemoglobin A1c (4-6) % Calcium (8.4-10.2) mg/dL Magnesium 1.30 L (1.7-2.3) mg/dL Alkaline Phosphatase (35-129) units/L Total Protein (6.3-8.2) g/dL Albumin (3.9-5) g/dL 06/17/20 06/17/20 06/17/20 Range/Units 04:27 06:28 08:02 RBC (3.65-5.03) M/mm3 Hgb (11.8-15.2) gm/dl Hct (35.5-45.6) % MCV (84-94) fl MCH (28-32) pg RDW (13.2-15.2) % [place] % (Auto) (0.0-7.3) % Sodium (137-145) mmol/L Potassium 3.0 L (3.6-5.0) mmol/L Chloride (98-107) mmol/L BUN 3 L (9-20) mg/dL Creatinine 0.6 L (0.8-1.3) mg/dL Glucose 202 H (75-100) mg/dL POC Glucose 430 H 187 H (70-105) Hemoglobin A1c (4-6) % Calcium 8.0 L (8.4-10.2) mg/dL Magnesium (1.7-2.3) mg/dL Alkaline Phosphatase 567 H (35-129) units/L Total Protein 5.6 L (6.3-8.2) g/dL Albumin 2.3 L (3.9-5) g/dL 06/17/20 06/17/20 06/17/20 Range/Units 08:02 08:29 12:03 RBC (3.65-5.03) M/mm3 Hgb (11.8-15.2) gm/dl Hct (35.5-45.6) % MCV (84-94) fl MCH (28-32) pg RDW (13.2-15.2) % [place] % (Auto) (0.0-7.3) % Sodium (137-145) mmol/L Potassium (3.6-5.0) mmol/L Chloride (98-107) mmol/L BUN (9-20) mg/dL Creatinine (0.8-1.3) mg/dL Glucose (75-100) mg/dL POC Glucose 202 H 274 H (70-105) Hemoglobin A1c 14.0 H (4-6) % Calcium (8.4-10.2) mg/dL Magnesium (1.7-2.3) mg/dL Alkaline Phosphatase (35-129) units/L Total Protein (6.3-8.2) g/dL Albumin (3.9-5) g/dL 06/17/20 Range/Units Unknown RBC (3.65-5.03) M/mm3 Hgb (11.8-15.2) gm/dl Hct (35.5-45.6) % MCV (84-94) fl MCH (28-32) pg RDW (13.2-15.2) % [place] % (Auto) (0.0-7.3) % Sodium 126 L (137-145) mmol/L Potassium 3.0 L (3.6-5.0) mmol/L Chloride 83.7 L (98-107) mmol/L BUN 4 L (9-20) mg/dL Creatinine (0.8-1.3) mg/dL Glucose 671 H* (75-100) mg/dL POC Glucose (70-105) Hemoglobin A1c (4-6) % Calcium (8.4-10.2) mg/dL Magnesium (1.7-2.3) mg/dL Alkaline Phosphatase (35-129) units/L Total Protein (6.3-8.2) g/dL Albumin (3.9-5) g/dL Diabetes panel 06/17/20 06/17/20 06/17/20 Range/Units 08:02 08:02 Unknown Sodium 138 D 126 L (137-145) mmol/L Potassium 3.0 L 3.0 L (3.6-5.0) mmol/L Chloride 102.6 83.7 L (98-107) mmol/L Carbon Dioxide 26 28 (22-30) mmol/L BUN 3 L 4 L (9-20) mg/dL Creatinine 0.6 L 0.8 (0.8-1.3) mg/dL Glucose 202 H 671 H* (75-100) mg/dL Hemoglobin A1c 14.0 H (4-6) % Calcium 8.0 L 8.8 (8.4-10.2) mg/dL AST 31 (5-40) units/L ALT 19 (7-56) units/L Alkaline Phosphatase 567 H (35-129) units/L Total Protein 5.6 L (6.3-8.2) g/dL Albumin 2.3 L (3.9-5) g/dL Calcium panel 06/17/20 06/17/20 Range/Units 08:02 Unknown Calcium 8.0 L 8.8 (8.4-10.2) mg/dL Albumin 2.3 L (3.9-5) g/dL Pituitary panel 06/17/20 06/17/20 Range/Units 08:02 Unknown Sodium 138 D 126 L (137-145) mmol/L Potassium 3.0 L 3.0 L (3.6-5.0) mmol/L Chloride 102.6 83.7 L (98-107) mmol/L Carbon Dioxide 26 28 (22-30) mmol/L BUN 3 L 4 L (9-20) mg/dL Creatinine 0.6 L 0.8 (0.8-1.3) mg/dL Glucose 202 H 671 H* (75-100) mg/dL Calcium 8.0 L 8.8 (8.4-10.2) mg/dL Adrenal panel 06/17/20 06/17/20 Range/Units 08:02 Unknown Sodium 138 D 126 L (137-145) mmol/L Potassium 3.0 L 3.0 L (3.6-5.0) mmol/L Chloride 102.6 83.7 L (98-107) mmol/L Carbon Dioxide 26 28 (22-30) mmol/L BUN 3 L 4 L (9-20) mg/dL Creatinine 0.6 L 0.8 (0.8-1.3) mg/dL Glucose 202 H 671 H* (75-100) mg/dL Calcium 8.0 L 8.8 (8.4-10.2) mg/dL Total Bilirubin 0.30 (0.1-1.2) mg/dL AST 31 (5-40) units/L ALT 19 (7-56) units/L Alkaline Phosphatase 567 H (35-129) units/L Total Protein 5.6 L (6.3-8.2) g/dL Albumin 2.3 L (3.9-5) g/dL Assessment and Plan - Patient Problems (1) Open wound of perineum Current Visit: No Status: Acute Plan to address problem: This is been a chronic issue for a number of months now. There is no evidence of infection. He has multiple wounds that are not being adequately cared for. We have advised him on multiple occasions of the importance of doing frequent sitz baths and not sitting in stool. Every time we have seen him in the hospital and in the clinic, he is sitting in stool. His pain is as a result of irritation of the wounds from the chronic stool exposure. We have offered him a diverting colostomy to help in healing the wounds, but he has refused. At this point, all that is needed is to keep the area clean and dry. He is to do frequent sitz baths daily. We will add Imodium to his medication list in hopes of decreasing the liquid stools. Please call with any questions.
[2020-06-17] MEDS: oxyCODONE /ACETAMINOPHEN 5-325MG TAB PO PRN ×2 (13:21→18:58)
[2020-06-17] MEDS: LOPERAMIDE 2 MG CAP PO SCH ×2 (13:21→21:03)
[2020-06-17] MEDS: metroNIDAZOLE/NS 500 MG/100 ML 500 MG/100 ML BAG IV SCH ×2 (13:24→21:02)
[2020-06-17] MEDS: NICOTINE 7 MG/24 HR PATCH TD SCH (13:24)
[2020-06-17] MEDS: TAMSULOSIN 0.4 MG CAP PO SCH (13:25)
[2020-06-17] MEDS ORDERED: CEFEPIME/NS 2 GM/100 ML 2 GM/100 ML BAG IV SCH (14:00)
--- NOTE | 2020-06-17 16:01 | Consultation ---
History of Present Illness - Reason for Consult Consult date: 06/17/20 Maria Ines-rectal abscess Requesting physician: KANDACE HUMPHRIES - History of Present Illness The patient is a 34-year-old male with perirectal abscess known to us from his previous hospitalizations in March and February 2020. He underwent an I&D and seton drain placement by general surgery in March 2020, and another washout during that time, treated with IV and PO abx in the past. Patient has reportedly been quite noncompliant with regards to wound care and sits baths and frequent fecal contamination of his wound. He returned to the hospital last night with complaints of perirectal pain and was noted to be severely hyperglycemic with blood sugar more than 500. No fever or leukocytosis. He has been evaluated by general surgery again who have recommended continued wound care and have also offered him a diverting colostomy which he has continued to refuse in the past as well as this admission. Infectious diseases was consulted to evaluate for antibiotics. Review of Systems: General: no fevers,chills or rigors HEENT: no new visual disturbance Respiratory: No cough, sputum, hemoptysis or shortness of breath Cardiovascular: No chest pain, syncope Genitourinary: No dysuria or hematuria Musculoskeletal: No new or worsening neck pain or back pain Neurologic: No headaches, seizures Hematologic: No easy bruising or bleeding Endocrine: No night sweats or acute weight loss Skin: negative for rash, jaundice Psychiatric: No suicidal or homicidal ideation Past History Past Medical History: diabetes Past Surgical History: Other (I&D of rectal abcess and placement of seton drain) Social history: single, smoking (1/2 ppd x 10 years), full code. denies: alcoho l abuse, prescription drug abuse, IV drug use Family history: other (does not know family history) Medications and Allergies Allergies Allergy/AdvReac Type Severity Reaction Status Date / Time Sulfa (Sulfonamide Allergy Rash Verified 05/06/20 09:28 Antibiotics) Home Medications Medication Instructions Recorded Confirmed Last Taken Type Balsalazide Disodium [Colazal] 750 mg PO TID 03/31/20 05/01/20 Unknown History Insulin Detemir [Levemir VIAL] 25 unit SQ QHS 03/31/20 05/01/20 1 Day Ago History ~04/30/20 Insulin NPH/Regular [NovoLIN 70/30] 4 unit SUB-Q BID 03/31/20 05/01/20 Unknown History OLANZapine [Zyprexa] 5 mg PO DAILY 03/31/20 05/01/20 Unknown History Potassium Chloride [K-Dur] 10 meq PO BID 03/31/20 05/01/20 Unknown History Tamsulosin [Flomax] 0.4 mg PO QDAY 03/31/20 05/01/20 Unknown History ursodioL [Ursodiol] 300 mg PO BID 03/31/20 05/01/20 Unknown History Acetaminophen [Acetaminophen TAB] 650 mg PO Q4H PRN tablet 04/04/20 05/01/20 Unknown Rx Zinc Oxide 1 applic TP BID #7 tube 04/12/20 05/01/20 Unknown Rx Loperamide [Imodium] 2 mg PO TID #30 capsule 05/04/20 Unknown Rx oxyCODONE /ACETAMINOPHEN [Percocet 1 tab PO Q6H PRN #14 tablet 05/04/20 Unknown Rx 5/325 mg] Magnesium Oxide [Mag-Ox] 400 mg PO QDAY #14 tablet 05/14/20 Unknown Rx Potassium Chloride 20 meq PO QDAY #14 packet 05/14/20 Unknown Rx Active Meds: Active Medications Acetaminophen (Tylenol) 650 mg PO Q4H PRN PRN Reason: Pain MILD(1-3)/Fever >100.5/VO Dextrose (D50w (25gm) Syringe) 50 ml IV Q30MIN PRN; Protocol PRN Reason: Hypoglycemia Enoxaparin Sodium (Enoxaparin) 40 mg SUB-Q QDAY@2200 [facility] Metronidazole (Flagyl 500 Mg/100 Ml) 500 mg in 100 mls @ 100 mls/hr IV Q8HR [facility]; Protocol Stop: 06/18/20 22:59 Last Admin: 06/17/20 13:24 Dose: 100 mls/hr Documented by: Cefepime HCl (Cefepime/Ns 2 Gm/100 Ml) 2 gm in 100 mls @ 200 mls/hr IV Q8HR [facility]; Protocol Stop: 06/18/20 22:29 Last Admin: 06/17/20 13:23 Dose: 200 mls/hr Documented by: Sodium Chloride (Nacl 0.9% 1000 Ml) 1,000 mls @ 75 mls/hr IV DIRECT [facility] Stop: 06/17/20 21:34 Last Admin: 06/17/20 08:31 Dose: 75 mls/hr Documented by: Insulin Glargine (Lantus) 25 units SUB-Q QHS [facility] Insulin Human Lispro (Humalog) 0 unit SUB-Q Q6HR [facility]; Protocol Last Admin: 06/17/20 13:20 Dose: 6 unit Documented by: Loperamide HCl (Imodium) 2 mg PO BID [facility] Last Admin: 06/17/20 13:21 Dose: 2 mg Documented by: Miscellaneous Medication (Ursodiol [Ursodiol]) 300 mg PO BID [facility] Morphine Sulfate (Morphine) 2 mg IV Q4H PRN PRN Reason: Pain, Moderate (4-6) Last Admin: 06/17/20 12:16 Dose: 2 mg Documented by: Nicotine (Habitrol) 7 mg TD QDAY [facility] Last Admin: 06/17/20 13:24 Dose: 7 mg Documented by: Olanzapine (Zyprexa) 5 mg PO DAILY [facility] Last Admin: 06/17/20 13:20 Dose: 5 mg Documented by: Ondansetron HCl (Zofran) 4 mg IV Q8H PRN PRN Reason: Nausea And Vomiting Oxycodone/Acetaminophen (Percocet 5/325) 1 tab PO Q6H PRN PRN Reason: Pain, Moderate (4-6) Last Admin: 06/17/20 13:21 Dose: 1 tab Documented by: Potassium Chloride (K-Dur) 40 meq PO ONCE NR Stop: 06/17/20 16:00 Last Admin: 06/17/20 13:21 Dose: 40 meq Documented by: Sodium Chloride (Sodium Chloride Flush Syringe 10 Ml) 10 ml IV BID [facility] Last Admin: 06/17/20 13:24 Dose: 10 ml Documented by: Sodium Chloride (Sodium Chloride Flush Syringe 10 Ml) 10 ml IV PRN PRN PRN Reason: LINE FLUSH Tamsulosin HCl (Flomax) 0.4 mg PO QDAY [facility] Last Admin: 06/17/20 13:25 Dose: 0.4 mg Documented by: Physical Examination - Physical Exam Narrative exam: Physical Exam: Constitutional: Alert, cooperative. No acute distress. Head, Ears, Nose: Normocephalic, atraumatic. External ears, nose normal Eyes: Conjunctivae/corneas clear. No icterus. No ptosis. Neck: Supple, no meningeal signs Oral: poor dentition Cardiovascular: S1, S2 normal. Respiratory: Good air entry, clear to auscultation bilaterally GI: Soft, non-tender; bowel sounds normal. No peritoneal signs. Perirectal wound with [place] drain and mucoid discharge. Musculoskeletal: No pedal edema, no cyanosis. Skin: No rash or abscess Hem/Lymphatic: No palpable cervical or supraclavicular nodes. No lymphangitis Psych: Mood ok. Affect normal Neurological: Awake, alert, oriented. No gross abnormality - Constitutional Vitals: Vital Signs Temp Pulse Resp BP Pulse Ox 98.1 F 83 17 69/29 90 06/17/20 01:13 06/17/20 08:20 06/17/20 08:20 06/17/20 08:20 06/17/20 08:20 Temperature -Last 24 Hours Temperature 98.1 F Temperature 98.8 F Results - Labs CBC & Chem 7: 06/16/20 23:41 06/17/20 Unknown Labs: Abnormal lab results 06/16/20 06/16/20 06/17/20 Range/Units 23:41 23:41 00:58 RBC 3.48 L (3.65-5.03) M/mm3 Hgb 9.5 L (11.8-15.2) gm/dl Hct 29.0 L (35.5-45.6) % MCV 83 L (84-94) fl MCH 27 L (28-32) pg RDW 16.0 H (13.2-15.2) % [place] % (Auto) 11.8 H (0.0-7.3) % Sodium (137-145) mmol/L Potassium (3.6-5.0) mmol/L Chloride (98-107) mmol/L BUN (9-20) mg/dL Creatinine (0.8-1.3) mg/dL Glucose (75-100) mg/dL POC Glucose > 500 H (70-105) Hemoglobin A1c (4-6) % Calcium (8.4-10.2) mg/dL Magnesium 1.30 L (1.7-2.3) mg/dL Alkaline Phosphatase (35-129) units/L Total Protein (6.3-8.2) g/dL Albumin (3.9-5) g/dL 06/17/20 06/17/20 06/17/20 Range/Units 04:27 06:28 08:02 RBC (3.65-5.03) M/mm3 Hgb (11.8-15.2) gm/dl Hct (35.5-45.6) % MCV (84-94) fl MCH (28-32) pg RDW (13.2-15.2) % [place] % (Auto) (0.0-7.3) % Sodium (137-145) mmol/L Potassium 3.0 L (3.6-5.0) mmol/L Chloride (98-107) mmol/L BUN 3 L (9-20) mg/dL Creatinine 0.6 L (0.8-1.3) mg/dL Glucose 202 H (75-100) mg/dL POC Glucose 430 H 187 H (70-105) Hemoglobin A1c (4-6) % Calcium 8.0 L (8.4-10.2) mg/dL Magnesium (1.7-2.3) mg/dL Alkaline Phosphatase 567 H (35-129) units/L Total Protein 5.6 L (6.3-8.2) g/dL Albumin 2.3 L (3.9-5) g/dL 06/17/20 06/17/20 06/17/20 Range/Units 08:02 08:29 12:03 RBC (3.65-5.03) M/mm3 Hgb (11.8-15.2) gm/dl Hct (35.5-45.6) % MCV (84-94) fl MCH (28-32) pg RDW (13.2-15.2) % [place] % (Auto) (0.0-7.3) % Sodium (137-145) mmol/L Potassium (3.6-5.0) mmol/L Chloride (98-107) mmol/L BUN (9-20) mg/dL Creatinine (0.8-1.3) mg/dL Glucose (75-100) mg/dL POC Glucose 202 H 274 H (70-105) Hemoglobin A1c 14.0 H (4-6) % Calcium (8.4-10.2) mg/dL Magnesium (1.7-2.3) mg/dL Alkaline Phosphatase (35-129) units/L Total Protein (6.3-8.2) g/dL Albumin (3.9-5) g/dL 06/17/20 Range/Units Unknown RBC (3.65-5.03) M/mm3 Hgb (11.8-15.2) gm/dl Hct (35.5-45.6) % MCV (84-94) fl MCH (28-32) pg RDW (13.2-15.2) % [place] % (Auto) (0.0-7.3) % Sodium 126 L (137-145) mmol/L Potassium 3.0 L (3.6-5.0) mmol/L Chloride 83.7 L (98-107) mmol/L BUN 4 L (9-20) mg/dL Creatinine (0.8-1.3) mg/dL Glucose 671 H* (75-100) mg/dL POC Glucose (70-105) Hemoglobin A1c (4-6) % Calcium (8.4-10.2) mg/dL Magnesium (1.7-2.3) mg/dL Alkaline Phosphatase (35-129) units/L Total Protein (6.3-8.2) g/dL Albumin (3.9-5) g/dL Assessment and Plan A/P: 34-year-old male with perirectal abscess known to us from his previous hospitalizations in March and February 2020. He underwent an I&D and seton drain placement by general surgery in March 2020, and another washout during that time along with IV abx. Patient has reportedly been quite noncompliant with regards to wound care and sits baths and frequent fecal contamination of his wound: #Chronic perirectal fistula: Status post I&D and seton drain placement in March 2020. Patient with noncompliance to wound care, pain medication seeking behavior, frequent fecal contamination. No fever or leukocytosis. The area will remain heavily colonized with enteric bacteria due to its location. There is no role for antibiotics at this time given lack of any significant inflammation. #DM uncontrolled Recs: Continue local wound care No role for antibiotics at this time Bud Gaona MD, FACP [facility] C: [phone] O: [phone] F: [phone]
[2020-06-17] MEDS ORDERED: INSULIN GLARGINE 100 UNITS/ML SUB-Q SCH (22:00)
[2020-06-17] MEDS ORDERED: ENOXAPARIN 40 MG/0.4 ML INJ SUB-Q SCH (22:00)
[2020-06-17] MEDS ORDERED: INSULIN DETEMIR 25 UNIT SQ SCH (22:00)
[2020-06-18] MEDS: oxyCODONE /ACETAMINOPHEN 5-325MG TAB PO PRN (04:24)
[2020-06-18] MEDS: metroNIDAZOLE/NS 500 MG/100 ML 500 MG/100 ML BAG IV SCH (05:17)
[2020-06-18 05:45] LABS: Blood Urea Nitrogen 4 mg/dL (9-20); Calcium 8.1 mg/dL (8.4-10.2); Hemolysis Index 1
[2020-06-18 05:46] LABS: BUN/Creatinine Ratio 7
[2020-06-18 06:17] LABS: Basophils % (Auto) 0.6 % (0.0-1.8); Eosinophils # (Auto) 0.1 K/mm3 (0.0-0.4); Eosinophils % (Auto) 1.7 % (0.0-4.3); Hematocrit 27.6 % (35.5-45.6); Hemoglobin 8.8 gm/dl (11.8-15.2); Lymphocytes # (Auto) 1.3 K/mm3 (1.2-5.4); Lymphocytes % (Auto) 30.3 % (13.4-35.0); Mean Corpuscular HGB Conc 32 % (32-34); Mean Corpuscular Volume 83 fl (84-94); Monocytes # (Auto) 0.4 K/mm3 (0.0-0.8); Monocytes % (Auto) 9.1 % (0.0-7.3); Platelet Count 198 K/mm3 (140-440); Red Cell Distribution Width 16.3 % (13.2-15.2)
[2020-06-18] MEDS: INSULIN LISPRO 100 UNIT/ML VIAL 3 mL SUB-Q SCH ×2 (08:30→12:32)
[2020-06-18] MEDS ORDERED: SODIUM CHLORIDE 0.9% 1000 ML 1,000 ML IV SCH (09:30)
[2020-06-18] MEDS: MORPHINE 2 MG/1 ML INJ IV PRN ×2 (09:49→14:01)
[2020-06-18] MEDS: TAMSULOSIN 0.4 MG CAP PO SCH (09:49)
[2020-06-18] MEDS: NICOTINE 7 MG/24 HR PATCH TD SCH (09:50)
[2020-06-18] MEDS: LOPERAMIDE 2 MG CAP PO SCH (09:52)
[2020-06-18] MEDS ORDERED: POTASSIUM CHLORIDE ER 20 MEQ TAB PO SCH ×2 (10:00→22:00)
[2020-06-18] MEDS ORDERED: POTASSIUM CHLORIDE ER 20 MEQ TAB PO ONE (10:00)
[2020-06-18] MEDS ORDERED: POTASSIUM CHLORIDE 10 MEQ 10 MEQ/100 ML BAG IV ONE (10:00)
[2020-06-18] MEDS ORDERED: oxyCODONE /ACETAMINOPHEN 5-325MG TAB PO PRN (10:26)
[2020-06-18] MEDS ORDERED: MAGNESIUM SULFATE 2 GM/50 ML BAG IV ONE (10:30)
--- NOTE | 2020-06-18 11:34 | Discharge Summary ---
<JONASCARMEN Mathew - Last Filed: 06/18/20 15:10> Providers - Providers Date of Admission: 06/17/20 02:51 Attending physician: CARMEN MCDANIEL 06/17/20 02:40 Consult to Physician [CONS] Urgent Comment: Dr. England spoke with Dr. Aleman @ [phone] Consulting Provider: HUMERA ALEMAN Physician Instructions: Reason For Exam: perirectal abscess 06/17/20 07:46 Consult to Physician [CONS] Routine Comment: Consulting Provider: GERRI RENEE Physician Instructions: Reason For Exam: Perirectal Abscess 06/17/20 07:48 Consult to Wound/ET Nurse [CONS] Routine Reason For Exam: wound eval 06/17/20 15:33 Consult to Case Management [CONS] Routine Services Needed at Discharge: Home Health Services Route Carrier Notified:: CM Comment:: Current resident of [facility] 06/18/20 08:30 psychiatry consult [Consult to Mental Health] [CONS] Routine Reason For Exam: [facility] Primary care physician: TEACHING ASSISTANT Hospitalization Condition: Stable Hospital course: I saw and evaluated the patient. I agree with the findings and the plan of care as documented in the Nurse Practitioner's~note, with the following corrections and additions. Disposition: DC-01 TO HOME OR SELFCARE Exam - Constitutional Vitals: Temp Pulse Resp BP Pulse Ox 97.5 F L 78 22 103/66 96 06/18/20 11:15 06/18/20 11:15 06/18/20 11:15 06/18/20 11:15 06/18/20 11:15 Plan Follow up with: AMOR ALARCON MD [Primary Care Provider] - 7 Days HUMERA ALEMAN MD [Staff Physician] - 7 Days Prescriptions: Insulin Detemir [Levemir VIAL] 25 unit SQ QHS #1 vial Tamsulosin [Flomax] 0.4 mg PO QDAY #30 cap Nicotine [Habitrol] 7 mg TD QDAY #30 patch Loperamide [Imodium] 2 mg PO TID #90 capsule Magnesium Oxide [Mag-Ox] 400 mg PO QDAY #14 tablet Insulin NPH/Regular [NovoLIN 70/30] 4 unit SUB-Q BID #1 vial OLANzapine [ZyPREXA] 5 mg PO DAILY #30 tablet <KANDACE HUMPHRIES - Last Filed: 06/18/20 15:55> Providers - Providers Date of Admission: 06/17/20 02:51 Attending physician: CARMEN MCDANIEL 06/17/20 02:40 Consult to Physician [CONS] Urgent Comment: Dr. England spoke with Dr. Aleman @ 0231 Consulting Provider: HUMERA ALEMAN Physician Instructions: Reason For Exam: perirectal abscess 06/17/20 07:46 Consult to Physician [CONS] Routine Comment: Consulting Provider: GERRI RENEE Physician Instructions: Reason For Exam: Perirectal Abscess 06/17/20 07:48 Consult to Wound/ET Nurse [CONS] Routine Reason For Exam: wound eval 06/17/20 15:33 Consult to Case Management [CONS] Routine Services Needed at Discharge: Home Health Services Route Carrier Notified:: CM Comment:: Current resident of [facility] 06/18/20 08:30 psychiatry consult [Consult to Mental Health] [CONS] Routine Reason For Exam: [facility] Primary care physician: TEACHING ASSISTANT Hospitalization Hospital course: This is a 34-year-old male with 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 Depression who presents to [facility] with pain and greenish and malodorus drainage from his perirectal abscess and fecal incontinence for 3 to 4 days. He was recently admitted on 05/15/2020 for rectal abscess and at that time refused a diverting colostomy and was discharged with home health care for wound care. He is a resident of a [facility] recently was released from senior care. In the emergency department he was found with hyperglycemia (BG 671), hypokalemia (3), hypomagnesemia (1.8), hyponatremia (126). In the emergency department he received 40meq KCl PO, 10meq KCl IV, 3 L normal saline, 10 units of insulin, 2 g of magnesium and Zosyn x1 dose. Dr. Aleman was consulted in ED. Infectious disease was consulted and stopped all antibiotics at this time. Dr. Aleman commended daily sitz bath and emphasized the need for keeping his perirectal area clean and dry. Psychiatry was consulted and they recommended follow-up with outpatient psych services. (1) Hyperglycemia Current Visit: No Status: Acute Plan to address problem: - BG on presentation to [facility] - 06/17 Hemoglobin A1c 14 - Continue to check your blood glucose on regular intervals and resume your home insulin regimen (2) Perirectal abscess Current Visit: Yes Status: Acute Plan to address problem: -Dr. Aleman recommends daily sitz baths and keep the area clean and dry and Imodium added in hopes of decreasing liquid stools -Patient recently admitted April 2020 s/p I&D of left perineal abscess and seton placement; he refused a diverting colostomy and was discharged to a personal snf with dressing changes at home. -06/16 UA (-) (3) Hypokalemia Current Visit: Yes Status: Acute Plan to address problem: -Will be discharged with p.o. KCl supplementation (5) IDDM (insulin dependent diabetes mellitus) Current Visit: No Status: Chronic Plan to address problem: - Home medication includes NPH/regular insulin 4 units twice daily and Levemir 25 units at bedtime - CC diet (6) Tobacco abuse Current Visit: Yes Status: Chronic Plan to address problem: - Smoking cessation counseling Time spent for discharge: 35 Core Measure Documentation - Palliative Care Palliative Care/ Comfort Measures: Not Applicable - Core Measures Any of the following diagnoses?: none Exam - Constitutional Vitals: Temp Pulse Resp BP Pulse Ox 98.0 F 74 18 97/66 96 06/18/20 05:01 06/18/20 05:01 06/18/20 05:01 06/18/20 05:01 06/18/20 05:01 General appearance: Present: no acute distress - EENT Eyes: Present: PERRL ENT: hearing intact, poor dentition - Neck Neck: Present: normal ROM - Respiratory Respiratory effort: normal Respiratory: bilateral: CTA - Cardiovascular Rhythm: regular Heart Sounds: Present: S1 & S2. Absent: systolic murmur, diastolic murmur - Extremities Extremities: no ischemia, pulses intact, No edema, normal temperature, Full ROM Peripheral Pulses: within normal limits - Abdominal General gastrointestinal: Present: soft, non-tender, normal bowel sounds - Rectal Rectal Exam: other (drain in place in perirectal area) - Integumentary Integumentary: Present: clear, warm, dry - Musculoskeletal Musculoskeletal: strength equal bilaterally - Psychiatric Psychiatric: appropriate mood/affect, cooperative - Neurologic Neurologic: CNII-XII intact, no focal deficits, moves all extremities - Allied Health Allied health notes reviewed: nursing, social work, case management Plan Activity: advance as tolerated Diet: regular Wound: per your surgeon's advice, drain care as instructed Special Instructions: smoking cessation Additional Instructions: Present to the nearest emergency department or your primary care provider for experience worsening of your symptoms. Please follow- up with your primary care provider within 1 to 2 weeks of discharge. Follow-up with Dr. Lima in 1 to 2 weeks of discharge. Please follow-up with outpatient psychiatry services.
[2020-06-18] MEDS ORDERED: ZINC OXIDE 20% OINT 28.35 GM TP SCH (12:00)
--- NOTE | 2020-06-18 12:57 | Consultation ---
History of Present Illness - Reason for Consult Consult date: 06/18/20 Reason for consult: management of meds - History of Present Psychiatric Illness Son Kessler is a 34y/o male patient who states he came to the hospital because he was "bit by a spider and developed a hole." The patient is a/o x 3. He is calm and cooperative, but becomes slightly irritable at some of the questions. He tells me "I never told anybody I needed someone for psych." He says "I don't need your services. I'm good." The patient initially denies any psychiatric history in the past, or being on any medications, but states, "maybe in [facility] they told me I had depression." He denies SI/HI or any past attempts. The patient also denies any psychiatric admissions. The patient denies any illicit drug use or alcohol. He admits to smoking "4 to 5 cigarets daily." The patient says he currently "lives in a [facility]." He says he was "recently released from [facility]." Mr. Kessler describes his mood as "good." He denies any problems with his sleep or appetite. PAST PSYCHIATRIC HISTORY: Diagnoses: Depression Suicide attempts or Self-harm behavior: Denies Prior psychiatric hospitalizations: Denies Substance Abuse history: Nicotine Previous psychiatric medications tried: Denies Outpatient treatment: Denies PAST MEDICAL HISTORY: None reported Family Psychiatric History: None reported or documented SOCIAL HISTORY Marital Status: Single Living Arrangements: [place] house Employment Status: Unemployed Access to guns/weapons: Denies Education: 9th grade History of Abuse: Denies Legal History: Released from [facility] REVIEW OF SYSTEMS Constitutional: Negative for weight loss ENT: Negative for stridor Respiratory: Negative for cough or hemoptysis All other systems reviewed and are negative MENTAL STATUS EXAMINATION General Appearance: Dressed appropriately Behavior: Calm and cooperative Mood: "good" Affect and affective range: Congruent Thought Process: Goal directed Speech: normal tone and pace Thought Content: Suicidal Ideation: Denies SI Homicidal Ideation: Denies Hallucinations: Denies Delusions: Denies Insight and Judgment: Limited Memory/Cognition: Limited Attention: Normal ASSESSMENT Major Depressive Disorder RECOMMENDATIONS No scripts given Sitter: Defer to primary Medical: per primary Disposition: Do not Recommend acute inpatient psychiatric treatment. The patient may discharge home once medically clear. The costume cutter to place resources for outpatient psychiatry The patient to follow up with outpatient psych or primary in 7 to 14 days upon discharge Will sign off. Thank you for this consult. Please call with any questions or concerns. Medications and Allergies Allergies Allergy/AdvReac Type Severity Reaction Status Date / Time Sulfa (Sulfonamide Allergy Rash Verified 05/06/20 09:28 Antibiotics) Home Medications Medication Instructions Recorded Confirmed Last Taken Type Balsalazide Disodium [Colazal] 750 mg PO TID 03/31/20 05/01/20 Unknown History Insulin Detemir [Levemir VIAL] 25 unit SQ QHS 03/31/20 05/01/20 1 Day Ago History ~04/30/20 Insulin NPH/Regular [NovoLIN 70/30] 4 unit SUB-Q BID 03/31/20 05/01/20 Unknown History OLANZapine [Zyprexa] 5 mg PO DAILY 03/31/20 05/01/20 Unknown History Potassium Chloride [K-Dur] 10 meq PO BID 03/31/20 05/01/20 Unknown History Tamsulosin [Flomax] 0.4 mg PO QDAY 03/31/20 05/01/20 Unknown History ursodioL [Ursodiol] 300 mg PO BID 03/31/20 05/01/20 Unknown History Acetaminophen [Acetaminophen TAB] 650 mg PO Q4H PRN tablet 04/04/20 05/01/20 Unknown Rx Zinc Oxide 1 applic TP BID #7 tube 04/12/20 05/01/20 Unknown Rx Loperamide [Imodium] 2 mg PO TID #30 capsule 05/04/20 Unknown Rx oxyCODONE /ACETAMINOPHEN [Percocet 1 tab PO Q6H PRN #14 tablet 05/04/20 Unknown Rx 5/325 mg] Magnesium Oxide [Mag-Ox] 400 mg PO QDAY #14 tablet 05/14/20 Unknown Rx Potassium Chloride 20 meq PO QDAY #14 packet 05/14/20 Unknown Rx Active Meds: Active Medications Acetaminophen (Tylenol) 650 mg PO Q4H PRN PRN Reason: Pain MILD(1-3)/Fever >100.5/VO Dextrose (D50w (25gm) Syringe) 50 ml IV Q30MIN PRN; Protocol PRN Reason: Hypoglycemia Enoxaparin Sodium (Enoxaparin) 40 mg SUB-Q QDAY@2200 DMITRIY Last Admin: 06/17/20 21:02 Dose: 40 mg Documented by: Sodium Chloride (Nacl 0.9% 1000 Ml) 1,000 mls @ 100 mls/hr IV DIRECT [facility] Last Admin: 06/18/20 09:50 Dose: 100 mls/hr Documented by: Insulin Glargine (Lantus) 25 units SUB-Q QHS [facility] Last Admin: 06/17/20 23:02 Dose: 25 units Documented by: Insulin Human Lispro (Humalog) 0 unit SUB-Q ACHS [facility]; Protocol Last Admin: 06/18/20 12:32 Dose: 4 unit Documented by: Loperamide HCl (Imodium) 2 mg PO TID [facility] Miscellaneous Medication (Ursodiol [Ursodiol]) 300 mg PO BID [facility] Miscellaneous Medication (Balsalazide Disodium [Colazal]) 750 mg PO TID [facility] Morphine Sulfate (Morphine) 2 mg IV Q4H PRN PRN Reason: Pain, Moderate (4-6) Last Admin: 06/18/20 09:49 Dose: 2 mg Documented by: Nicotine (Habitrol) 7 mg TD QDAY [facility] Last Admin: 06/18/20 09:50 Dose: 7 mg Documented by: Olanzapine (Zyprexa) 5 mg PO DAILY [facility] Last Admin: 06/18/20 09:50 Dose: 5 mg Documented by: Ondansetron HCl (Zofran) 4 mg IV Q8H PRN PRN Reason: Nausea And Vomiting Oxycodone/Acetaminophen (Percocet 5/325) 1 tab PO Q6H PRN PRN Reason: Pain, Moderate (4-6) Potassium Chloride (K-Dur) 10 meq PO BID [facility] Sodium Chloride (Sodium Chloride Flush Syringe 10 Ml) 10 ml IV BID [facility] Last Admin: 06/18/20 09:50 Dose: 10 ml Documented by: Sodium Chloride (Sodium Chloride Flush Syringe 10 Ml) 10 ml IV PRN PRN PRN Reason: LINE FLUSH Tamsulosin HCl (Flomax) 0.4 mg PO QDAY [facility] Last Admin: 06/18/20 09:49 Dose: 0.4 mg Documented by: Zinc Oxide (Zinc Oxide) 1 applic TP BID [facility] Last Admin: 06/18/20 12:33 Dose: 1 applic Documented by: Mental Status Exam - Vital signs Last Vital Signs Temp 98.0 F 06/18/20 05:01 Pulse 74 06/18/20 05:01 Resp 18 06/18/20 05:01 BP 97/66 06/18/20 05:01 Pulse Ox 96 06/18/20 05:01 Results Result Diagrams: 06/18/20 04:11 06/18/20 04:11 Abnormal lab results 06/17/20 06/18/20 06/18/20 Range/Units 16:27 04:11 04:11 WBC 4.2 L (4.5-11.0) K/mm3 RBC 3.30 L (3.65-5.03) M/mm3 Hgb 8.8 L (11.8-15.2) gm/dl Hct 27.6 L (35.5-45.6) % MCV 83 L (84-94) fl MCH 27 L (28-32) pg RDW 16.3 H (13.2-15.2) % [place] % (Auto) 9.1 H (0.0-7.3) % Potassium 3.1 L (3.6-5.0) mmol/L Chloride 107.5 H (98-107) mmol/L BUN 4 L (9-20) mg/dL Creatinine 0.6 L (0.8-1.3) mg/dL Glucose 177 H (75-100) mg/dL POC Glucose 273 H (70-105) Calcium 8.1 L (8.4-10.2) mg/dL Magnesium 1.10 L (1.7-2.3) mg/dL 06/18/20 06/18/20 Range/Units 08:04 11:32 WBC (4.5-11.0) K/mm3 RBC (3.65-5.03) M/mm3 Hgb (11.8-15.2) gm/dl Hct (35.5-45.6) % MCV (84-94) fl MCH (28-32) pg RDW (13.2-15.2) % [place] % (Auto) (0.0-7.3) % Potassium (3.6-5.0) mmol/L Chloride (98-107) mmol/L BUN (9-20) mg/dL Creatinine (0.8-1.3) mg/dL Glucose (75-100) mg/dL POC Glucose 129 H 225 H (70-105) Calcium (8.4-10.2) mg/dL Magnesium (1.7-2.3) mg/dL All other labs normal.
[2020-06-18 13:13] VITALS: BP 103/66
[2020-06-18] MEDS ORDERED: LOPERAMIDE 2 MG CAP PO SCH (14:00)
[2020-06-18] MEDS ORDERED: BALSALAZIDE DISODIUM 750 MG PO SCH (14:00)
[2020-06-18 14:30] LABS: Blood Urea Nitrogen 3 mg/dL (9-20); Calcium 7.9 mg/dL (8.4-10.2); Hemolysis Index 2
[2020-06-18 14:33] LABS: BUN/Creatinine Ratio 5
[2020-06-19] MEDS ORDERED: POTASSIUM CHLORIDE ER 20 MEQ TAB PO SCH (10:00)
== END 2020-06-18 18:38 | disposition home or self-care (01) ==
LOC: ED 21:12 → 3A 06-17 02:51
PROVIDERS: ADMIT Internal Medicine Geriatric Medicine; ATTEND Internal Medicine
DX: K61.1 Rectal abscess (principal); E87.6 Hypokalemia; E11.65 Type 2 diabetes mellitus with hyperglycemia; E83.42 Hypomagnesemia; E87.0 Hyperosmolality and hypernatremia; F32.9 Major depressive disorder, single episode, unspecified; F17.200 Nicotine dependence, unspecified, uncomplicated; Z71.6 Tobacco abuse counseling; Z79.4 Long term (current) use of insulin; Z79.899 Other long term (current) drug therapy; Z88.2 Allergy status to sulfonamides
CPT/HCPCS: 36415; 80048; 80053; 81001; 82140; 82962; 83036; 83735; 85025; 96361; 96365; 96366; 96367; 96372; 96375; 96376; 99284; 99406; G0378; J0692; J1650; J1885; J2270; J2543; J3475; J3480; J7030; A6250; J1815

== ENCOUNTER 2020-11-25 15:52 | Emergency (ER) | payer MEDICAID ==
[2020-11-25 16:53] VITALS: BP 106/66
[2020-11-25] MEDS ORDERED: ONDANSETRON 4 MG/2 ML INJ ONE (18:10)
== END 2020-11-25 17:45 | disposition left against medical advice (07) ==
LOC: ED 15:52
DX: E11.65 Type 2 diabetes mellitus with hyperglycemia (principal); Z53.21 Procedure and treatment not carried out due to patient leaving prior to being seen by health care provider
CPT/HCPCS: J2405

== ENCOUNTER 2021-05-13 13:05 | Inpatient (IN) | payer MEDICAID ==
[2021-05-13] MEDS ORDERED: SODIUM CHLORIDE 0.9% 1000 ML 1,000 ML IV ONE ×2 (14:09)
--- NOTE | 2021-05-13 14:24 | Emergency Department Report ---
HPI - General Chief Complaint: Hyperglycemia Time Seen by Provider: 05/13/21 13:10 - HPI HPI: 35-year-old male with history of insulin-dependent diabetes mellitus and several mental illnesses including schizophrenia who is a green of the [facility] brought in b y EMS from his [facility] at the request of his court appointed guardian due to multiple problems she is noted. His blood sugars have been too high to read for the past week or so. Over that period of time he has had an unsteady gait and has fallen several times including yesterday. She is also concerned that he has developed neuropathy because he reports numbness in his fingers and toes. When I spoke to the patient initially, he indicated he did not want to be examined or worked up in any way. He would not allow me to inspect his feet or hands or perform any kind of work-up and insisted that he was okay. After speaking to the patient's guardian, Nelia Browning on the phone at 1:24 PM, she stated that she agrees he should not be forced to undergo evaluation against his will. We contacted risk management and I spoke with Nupur Silva at 1:49 PM. She expressed agreement that we should not force anyone to undergo examination or work-up against their will, even if they are a green of the [facility]. When I went into the room to speak to the patient again at 1:53 PM, Rebekah, the national sales manager was present and the patient is now change his mind and states he is okay with being examined and fully worked up and treated. He reports that he has had an unsteady gait for the past week and has been falling frequently. He also reports dental pain which has been ongoing for a year. He does state that for the past week he has had some shortness of breath and cough greater than normal. He is a cigarette smoker and smokes 1 pack/day. He says he has numbness/tingling in his bilateral fingertips and toes. He denies any fever/chills, headache, vision change, neck pain, back pain, chest pain, abdominal pain, nausea/vomiting, dysuria, focal weakness, or any other complaints. ED Past Medical Hx - Past Medical History Hx Hypertension: No Hx Heart Attack/AMI: No Hx Congestive Heart Failure: No Hx Diabetes: Yes Hx Deep Vein Thrombosis: No Hx Pulmonary Embolism: No Hx Liver Disease: No Hx Renal Disease: No Hx Sickle Cell Disease: No Hx Arthritis: No Hx Seizures: No Hx Asthma: No Hx COPD: No Hx HIV: No Additional medical history: Left perianal abscess - Surgical History Hx Pacemaker: No Hx Internal Defibrillator: No Hx Cholecystectomy: No Hx Appendectomy: No Additional Surgical History: Incision and drainage perianal abscess - Social History Smoking Status: Current Every Day Smoker - Medications Home Medications: Home Medications Medication Instructions Recorded Confirmed Last Taken Type Balsalazide Disodium [Colazal] 750 mg PO TID 03/31/20 05/01/20 Unknown History Potassium Chloride [K-Dur] 10 meq PO BID 03/31/20 05/01/20 Unknown History ursodioL [Ursodiol] 300 mg PO BID 03/31/20 05/01/20 Unknown History Acetaminophen [Acetaminophen TAB] 650 mg PO Q4H PRN tablet 04/04/20 05/01/20 Unknown Rx Zinc Oxide 1 applic TP BID #7 tube 04/12/20 05/01/20 Unknown Rx oxyCODONE /ACETAMINOPHEN [Percocet 1 tab PO Q6H PRN #14 tablet 05/04/20 Unknown Rx 5/325 mg] Potassium Chloride 20 meq PO QDAY #14 packet 05/14/20 Unknown Rx Acetaminophen [Acetaminophen TAB] 650 mg PO Q4H PRN tablet 06/18/20 Unknown Rx Insulin Detemir [Levemir VIAL] 25 unit SQ QHS #1 vial 06/18/20 Unknown Rx Insulin NPH/Regular [NovoLIN 70/30] 4 unit SUB-Q BID #1 vial 06/18/20 Unknown Rx Loperamide [Imodium] 2 mg PO TID #90 capsule 06/18/20 Unknown Rx Magnesium Oxide [Mag-Ox] 400 mg PO QDAY #14 tablet 06/18/20 Unknown Rx Nicotine [Habitrol] 7 mg TD QDAY #30 patch 06/18/20 Unknown Rx OLANzapine [ZyPREXA] 5 mg PO DAILY #30 tablet 06/18/20 Unknown Rx Tamsulosin [Flomax] 0.4 mg PO QDAY #30 cap 06/18/20 Unknown Rx ED Review of Systems ROS: Stated complaint: GENERAL ILLNESS Other details as noted in HPI Constitutional: denies: chills, fever Eyes: denies: vision change ENT: dental pain. denies: throat pain, congestion Respiratory: cough, shortness of breath Cardiovascular: denies: chest pain, palpitations, syncope Gastrointestinal: denies: abdominal pain, nausea, vomiting, diarrhea Genitourinary: denies: dysuria, frequency Musculoskeletal: denies: back pain, joint swelling Skin: lesions Neurological: paresthesias, abnormal gait. denies: headache, weakness, numbness Physical Exam - Physical Exam Vital Signs: Vital Signs 05/13/21 05/13/21 05/13/21 14:20 16:20 18:46 Temperature 99.0 F Pulse Rate 68 88 98 H Respiratory 18 18 15 Rate Blood Pressure 90/58 Blood Pressure 98/66 100/64 [Left] O2 Sat by Pulse 99 93 Oximetry 05/13/21 05/13/21 19:00 19:16 Temperature Pulse Rate 88 86 Respiratory 17 17 Rate Blood Pressure 92/68 92/68 Blood Pressure [Left] O2 Sat by Pulse 97 98 Oximetry Physical Exam: GENERAL: Frail unkempt male in no acute distress. HEENT: Normocephalic. No obvious signs of trauma. Dry mucous membranes. Intraoral examination reveals very poor dentition including multiple gangrenous and necrotic teeth. There is an impacted right molar which is seen. There is no obvious drainable periapical abscess. EYES: Extraocular movements are intact. Pupils are equal round and reactive to light bilaterally NECK: Supple. FROM is intact. Trachea is midline. LUNGS: Nonlabored breathing. Equal chest rise bilaterally. Lung auscultation reveals globally decreased air movement throughout without discrete rales, wheezes, or rhonchi. HEART/CARDIOVASCULAR: Tachycardic but with regular rate. No murmurs or rubs. VASCULAR: 2+ peripheral pulses. Cap refill < 2 seconds ABDOMEN: Abdomen is soft and nondistended. There is no significant tenderness, guarding or rebound. SKIN: Skin is warm and dry. There are multiple scattered 1 to 2 mm erythematous macules which are excoriated over the bilateral arms and legs sparing the palms and soles. NEURO: Patient is awake, alert, and oriented to self place, and situation, although he is confused about the date. 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 No focal deficits. Normal motor and sensory exam throughout with the exception of decreased sensation over the bilateral fingertips and toes. normal speech. No rmal [id number]. Wide unsteady gait MUSCULOSKELETAL: No obvious deformities. No significant tenderness. Normal ROM throughout. BACK/SPINE: No midline tenderness or step-offs of the C/T/L spine. No costovertebral angle tenderness. ED Medical Decision Making - Lab Data Result diagrams: 05/13/21 14:15 05/13/21 14:15 Lab Results 05/13/21 05/13/21 05/13/21 Range/Units 14:15 14:15 14:15 WBC 13.8 H (4.5-11.0) K/mm3 RBC 4.87 (3.65-5.03) M/mm3 Hgb 15.1 (11.8-15.2) gm/dl Hct 42.1 (35.5-45.6) % MCV 87 (84-94) fl MCH 31 (28-32) pg MCHC 36 H (32-34) % RDW 16.0 H (13.2-15.2) % Plt Count 154 (140-440) K/mm3 Lymph % (Auto) 11.7 L (13.4-35.0) % [place] % (Auto) 4.6 (0.0-7.3) % Eos % (Auto) 0.7 (0.0-4.3) % Baso % (Auto) 0.3 (0.0-1.8) % Lymph # (Auto) 1.6 (1.2-5.4) K/mm3 [place] # (Auto) 0.6 (0.0-0.8) K/mm3 Eos # (Auto) 0.1 (0.0-0.4) K/mm3 Baso # (Auto) 0.0 (0.0-0.1) K/mm3 Seg Neutrophils % 82.7 H (40.0-70.0) % Seg Neutrophils # 11.4 H (1.8-7.7) K/mm3 PT 13.3 (12.2-14.9) Sec. INR 0.96 (0.87-1.13) APTT 25.5 (24.2-36.6) Sec. VBG pH (7.320-7.420) Sodium (137-145) mmol/L Potassium (3.6-5.0) mmol/L Chloride (98-107) mmol/L Carbon Dioxide (22-30) mmol/L Anion Gap mmol/L BUN (9-20) mg/dL Creatinine (0.8-1.3) mg/dL Estimated GFR ml/min BUN/Creatinine Ratio % Glucose (75-100) mg/dL POC Glucose (70-105) mg/dL Lactic Acid (0.7-2.0) mmol/L Calcium (8.4-10.2) mg/dL Magnesium (1.7-2.3) mg/dL Total Bilirubin (0.1-1.2) mg/dL AST (5-40) units/L ALT (7-56) units/L Alkaline Phosphatase (35-129) units/L Troponin T < 0.010 (0.00-0.029) ng/mL Total Protein (6.3-8.2) g/dL Albumin (3.9-5) g/dL Albumin/Globulin Ratio % Lipase (13-60) units/L 05/13/21 05/13/21 05/13/21 Range/Units 14:15 14:15 14:15 WBC (4.5-11.0) K/mm3 RBC (3.65-5.03) M/mm3 Hgb (11.8-15.2) gm/dl Hct (35.5-45.6) % MCV (84-94) fl MCH (28-32) pg MCHC (32-34) % RDW (13.2-15.2) % Plt Count (140-440) K/mm3 Lymph % (Auto) (13.4-35.0) % [place] % (Auto) (0.0-7.3) % Eos % (Auto) (0.0-4.3) % Baso % (Auto) (0.0-1.8) % Lymph # (Auto) (1.2-5.4) K/mm3 [place] # (Auto) (0.0-0.8) K/mm3 Eos # (Auto) (0.0-0.4) K/mm3 Baso # (Auto) (0.0-0.1) K/mm3 Seg Neutrophils % (40.0-70.0) % Seg Neutrophils # (1.8-7.7) K/mm3 PT (12.2-14.9) Sec. INR (0.87-1.13) APTT (24.2-36.6) Sec. VBG pH (7.320-7.420) Sodium 132 L (137-145) mmol/L Potassium 3.3 L (3.6-5.0) mmol/L Chloride 87.0 L (98-107) mmol/L Carbon Dioxide 32 H (22-30) mmol/L Anion Gap 16 mmol/L BUN 12 (9-20) mg/dL Creatinine 0.5 L (0.8-1.3) mg/dL Estimated GFR > 60 ml/min BUN/Creatinine Ratio 24 % Glucose 439 H (75-100) mg/dL POC Glucose (70-105) mg/dL Lactic Acid 1.30 (0.7-2.0) mmol/L Calcium 9.5 (8.4-10.2) mg/dL Magnesium 1.10 L (1.7-2.3) mg/dL Total Bilirubin 1.00 (0.1-1.2) mg/dL AST 295 H (5-40) units/L ALT 226 H (7-56) units/L Alkaline Phosphatase 1367 H (35-129) units/L Troponin T (0.00-0.029) ng/mL Total Protein 7.3 (6.3-8.2) g/dL Albumin 3.7 L (3.9-5) g/dL Albumin/Globulin Ratio 1.0 % Lipase 28 (13-60) units/L 05/13/21 05/13/21 05/13/21 Range/Units 14:41 14:41 17:08 WBC (4.5-11.0) K/mm3 RBC (3.65-5.03) M/mm3 Hgb (11.8-15.2) gm/dl Hct (35.5-45.6) % MCV (84-94) fl MCH (28-32) pg MCHC (32-34) % RDW (13.2-15.2) % Plt Count (140-440) K/mm3 Lymph % (Auto) (13.4-35.0) % [place] % (Auto) (0.0-7.3) % Eos % (Auto) (0.0-4.3) % Baso % (Auto) (0.0-1.8) % Lymph # (Auto) (1.2-5.4) K/mm3 [place] # (Auto) (0.0-0.8) K/mm3 Eos # (Auto) (0.0-0.4) K/mm3 Baso # (Auto) (0.0-0.1) K/mm3 Seg Neutrophils % (40.0-70.0) % Seg Neutrophils # (1.8-7.7) K/mm3 PT (12.2-14.9) Sec. INR (0.87-1.13) APTT (24.2-36.6) Sec. VBG pH 7.438 H (7.320-7.420) Sodium (137-145) mmol/L Potassium (3.6-5.0) mmol/L Chloride (98-107) mmol/L Carbon Dioxide (22-30) mmol/L Anion Gap mmol/L BUN (9-20) mg/dL Creatinine (0.8-1.3) mg/dL Estimated GFR ml/min BUN/Creatinine Ratio % Glucose (75-100) mg/dL POC Glucose 433 H (70-105) mg/dL Lactic Acid 0.90 (0.7-2.0) mmol/L Calcium (8.4-10.2) mg/dL Magnesium (1.7-2.3) mg/dL Total Bilirubin (0.1-1.2) mg/dL AST (5-40) units/L ALT (7-56) units/L Alkaline Phosphatase (35-129) units/L Troponin T (0.00-0.029) ng/mL Total Protein (6.3-8.2) g/dL Albumin (3.9-5) g/dL Albumin/Globulin Ratio % Lipase (13-60) units/L - EKG Data -: EKG Interpreted by Mn - EKG Data 05/13/21 19:30 Normal sinus rhythm. Normal axis. Normal intervals. No ectopy. No sign ificant ST segment or T wave abnormalities. - Radiology Data CT head/brain wo con INDICATION: fall, unsteady gait. TECHNIQUE: All CT scans at this location are performed using CT dose reduction for ALARA by means of automated exposure control. COMPARISON: None available. FINDINGS: There is no evidence of hemorrhage, hydrocephalus, brain edema, or mass effect/mass lesion. There is chronic encephalomalacia in the anterior left temporal lobe likely due to previous trauma. Remainder the brain otherwise appears normal for age. The included paranasal sinuses and mastoid air cells are clear. The orbits appear unremarkable. IMPRESSION: 1. No acute intracranial abnormality. Signer Name: Manny Nayak MD Signed: 05/13/2021 2:34 PM Workstation Name: [id number] CT CERVICAL SPINE WITHOUT CONTRAST INDICATION: fall, unsteady gait. TECHNIQUE: Axial CT images of the spine were obtained. Sagittal and coronal reformatted images were produced. All CT scans at this location are performed using CT dose reduction for ALARA by means of automated exposure control. COMPARISON: None available. FINDINGS: ACUTE FRACTURE(S) OR SUBLUXATION: None. SPINAL DEGENERATIVE CHANGES: No significant degenerative changes. PARASPINAL SOFT TISSUES: No soft tissue swelling or other acute abnormalities. ADDITIONAL FINDINGS: No significant additional findings. IMPRESSION: 1. No acute fracture or subluxation in the spine in neutral position. Signer Name: Manny Nayak MD Signed: 05/13/2021 2:35 PM Workstation Name: [id number] CHEST 1 VIEW INDICATION: sepsis. COMPARISON: 05/14/2020. FINDINGS: Support devices: None. Heart: Normal. Lungs/Pleura: No acute pulmonary or pleural findings. IMPRESSION: 1. No acute findings. Signer Name: Noam Wang MD Signed: 05/13/2021 2:50 PM Workstation Name: [id number] ULTRASOUND ABDOMEN, LIMITED (RIGHT UPPER QUADRANT) INDICATION: RUQ, r/o cholecystitis. COMPARISON: CT scan dated 04/07/2020 FINDINGS: Pancreas: Not well seen. Visualized portion shows no significant abnormality. Liver: Normal. Gallbladder: Sludge is noted in the lumen of the gallbladder. The gallbladder wall is normal in thickness. No pericholecystic fluid is seen. Bile ducts: Upper limits of normal Common Bile Duct measures 6.6 mm. Free fluid: None. Additi onal Findings: Incidental note is made of an extrarenal pelvis in the right kidney. This is seen on the prior CT. IMPRESSION: 1. There is sludge in the lumen of the gallbladder. The common bile duct is upper limits of normal in diameter. There is no definitive sonographic evidence of cholecystitis. If cholecystitis remains a clinical concern, nuclear medicine HIDA scan can be obtained to further evaluate. Signer Name: Hemanth Conde MD Signed: 05/13/2021 5:30 PM Workstation Name: [id number] - Medical Decision Making 35-year-old male with history of insulin-dependent diabetes mellitus and several mental illnesses who is a green of the [facility] was brought in by EMS at the request of his court-appointed guardian due to elevated blood sugars, unsteady gait, and a fall yesterday. The patient initially refused examination or work- up of any kind. See the HPI for details however, he eventually changed his mind and decided that he was okay with full evaluation, work-up, and management. He disclosed that he has had an unsteady gait, elevated blood sugars, numbness in his fingers and toes and shortness of breath with a mild cough for the past week. On initial assessment, the patient's vital signs were not taken because he did not want them. However when he consented to examination he was noted to have tachycardia in the 110s. He does have numbness in his fingertips and toes bilaterally but no other focal neurologic deficits on exam with the exception of broad-based unsteady gait. Findings are most consistent with diabetic neuropathy. He is noted to have very poor dentition with multiple necrotic and gangrenous teeth. There is no visible drainable periapical abscess however, there is an impacted right molar seen. I do feel that he has a dental infection which will require antibiotics. He has full range of motion at the neck. He has no mid spinal tenderness. There are no obvious signs of trauma. He does have very dry mucous membranes. He is also noted to have excoriated erythematous macules on his arms and feet which spare the palms and soles. They are nontender. Given the lack of available information at this time and the possibility of DKA/sepsis we will order very broad work-up including full set of labs and 2 sets of blood cultures. We will obtain EKG, chest x-ray and CT of the head and C-spine. His fingerstick blood glucose was 430. We will give 2 L of IV fluids for now. Labs have resulted and reveal leukocytosis with white blood cell count of 13.8. However, this could be due to hemoconcentration given that his hemoglobin is also 15.1. Chemistry reveals hyponatremia with sodium of 132, hypokalemia with potassium of 3.3, elevated bicarb of 32. Lactate is not elevated. Troponin is negative. Magnesium is low at 1.1. Given the low potassium we will not give insulin for now but will continue with IV fluids and will give 40 mEq of potassium and 2 g of magnesium sulfate. We will start the patient on sliding scale insulin to address his hyperglycemia as well as the IV fluids. Patient is noted to have transaminitis with AST of 295, ALT of 226, and alk phos of 1367, which are new. In light of these findings, although the patient does have a nontender abdomen I have ordered a right upper quadrant ultrasound to assess for evidence of cholelithiasis/cholecystitis and/or choledocholithiasis. I have ordered broad-spectrum IV vancomycin and ceftriaxone. Given the patient's unsteady gait, significantly elevated blood sugar, evidence of dental infection, unidentifiable lesions to the arms and legs, and several electrolyte abnormalities, I feel that the patient requires admission for further work-up and management. I discussed this with the patient who expressed understanding and agreement with this plan. I spoke to Dr. Velásquez, the on-call hospitalist regarding the case. He accepts the patient for admission and will assume care at approximately 5 PM. He does understand that some studies including the right upper quadrant ultrasound are still pending Critical Care Time: Yes Critical care time in (mins) excluding proc time.: 40 Critical care attestation.: If time is entered above; I have spent that time in minutes in the direct care of this critically ill patient, excluding procedure time. Critical care time was spent in the evaluation/assessment and work-up of hyperglycemia with multiple laboratory abnormalities requiring IV repletion and IV insulin in addition to several liters of IV fluids ED Disposition Clinical Impression: Hyperglycemia, Hypomagnesemia, IDDM (insulin dependent diabetes mellitus), Hypokalemia, Diabetic neuropathy, Unsteady gait, Transaminitis, Gallbladder sludge, Skin lesion Disposition: OP ADMIT IP TO THIS HOSP Is pt being admited?: Yes Condition: Stable
[2021-05-13 14:49] LABS: Basophils % (Auto) 0.3 % (0.0-1.8); Eosinophils # (Auto) 0.1 K/mm3 (0.0-0.4); Eosinophils % (Auto) 0.7 % (0.0-4.3); Lymphocytes # (Auto) 1.6 K/mm3 (1.2-5.4); Lymphocytes % (Auto) 11.7 % (13.4-35.0); Mean Corpuscular HGB Conc 36 % (32-34); Mean Corpuscular Volume 87 fl (84-94); Monocytes # (Auto) 0.6 K/mm3 (0.0-0.8); Monocytes % (Auto) 4.6 % (0.0-7.3); Platelet Count 154 K/mm3 (140-440); Red Blood Count 4.87 M/mm3 (3.65-5.03)
[2021-05-13] MEDS ORDERED: IPRATROPIUM/ALBUTEROL SULFATE 3 ML AMPUL.NEB IH ONE (14:54)
[2021-05-13 15:01] LABS: Hematocrit 42.1 % (35.5-45.6); Hemoglobin 15.1 gm/dl (11.8-15.2)
[2021-05-13 15:03] LABS: Alanine Aminotransferase 226 units/L (7-56); Albumin 3.7 g/dL (3.9-5); Blood Urea Nitrogen 12 mg/dL (9-20); Calcium 9.5 mg/dL (8.4-10.2); Hemolysis Index 62
[2021-05-13 15:04] LABS: BUN/Creatinine Ratio 24; INR 0.96 (0.87-1.13)
[2021-05-13 15:05] LABS: Partial Thromboplastin Time 25.5 Sec. (24.2-36.6)
[2021-05-13] MEDS ORDERED: POTASSIUM CHLORIDE ER 20 MEQ TAB PO ONE (15:26)
[2021-05-13] MEDS ORDERED: cefTRIAXone/NS 2 GM/100 ML 2 GM/100 ML BAG IV ONE (15:38)
--- NOTE | 2021-05-13 15:38 | Cat Scan Report ---
CT head/brain wo con INDICATION: fall, unsteady gait. TECHNIQUE: All CT scans at this location are performed using CT dose reduction for ALARA by means of automated e xposure control. COMPARISON: None available. FINDINGS: There is no evidence of hemorrhage, hydrocephalus, brain edema, or mass effect/mass lesion. There is chronic encephalomalacia in the anterior left temporal lobe likely due to previous trauma. Remainder the brain otherwise appears normal for age. The included paranasal sinuses and mastoid air cells are clear. The orbits appear unremarkable. IMPRESSION: 1. No acute intracranial abnormality. Signer Name: Manny Nayak MD Signed: 05/13/2021 3:34 PM Workstation Name: [id number]
[2021-05-13] MEDS ORDERED: VANCOMYCIN 1,000 MG in SODIUM CHLORIDE 0.9% 500 ML 500 ML IV ONE (15:39)
--- NOTE | 2021-05-13 15:39 | Cat Scan Report ---
CT CERVICAL SPINE WITHOUT CONTRAST INDICATION: fall, unsteady gait. TECHNIQUE: Axial CT images of the spine were obtained. Sagittal and coronal reformatted images were produced. Al l CT scans at this location are performed using CT dose reduction for ALARA by means of automated exp osure control. COMPARISON: None available. FINDINGS: ACUTE FRACTURE(S) OR SUBLUXATION: None. SPINAL DEGENERATIVE CHANGES: No significant degenerative changes. PARASPINAL SOFT TISSUES: No soft tissue swelling or other acute abnormalities. ADDITIONAL FINDINGS: No significant additional findings. IMPRESSION: 1. No acute fracture or subluxation in the spine in neutral position. Signer Name: Manny Nayak MD Signed: 05/13/2021 3:35 PM Workstation Name: [id number]
[2021-05-13] MEDS ORDERED: MAGNESIUM SULFATE 2 GM/50 ML BAG IV ONE (15:46)
--- NOTE | 2021-05-13 15:55 | XRay Report ---
CHEST 1 VIEW INDICATION: sepsis. COMPARISON: 05/14/2020. FINDINGS: Support devices: None. Heart: Normal. Lungs/Pleura: No acute pulmonary or pleural findings. IMPRESSION: 1. No acute findings. Signer Name: Noam Wang MD Signed: 05/13/2021 3:50 PM Workstation Name: [id number]
[2021-05-13] MEDS ORDERED: VANCOMYCIN/NS 1 GM/250 ML 1 GM/250 ML BAG IV SCH (16:00)
--- NOTE | 2021-05-13 18:34 | Ultrasound Report ---
ULTRASOUND ABDOMEN, LIMITED (RIGHT UPPER QUADRANT) INDICATION: RUQ, r/o cholecystitis. COMPARISON: CT scan dated 04/07/2020 FINDINGS: Pancreas: Not well seen. Visualized portion shows no significant abnormality. Liver: Normal. Gallbladder: Sludge is noted in the lumen of the gallbladder. The gallbladder wall is normal in [place]. No pericholecystic fluid is seen. Bile ducts: Upper limits of normal Common Bile Duct measures 6.6 mm. Free fluid: None. Additional Findings: Incidental note is made of an extrarenal pelvis in the right kidney. This is see n on the prior CT. IMPRESSION: 1. There is sludge in the lumen of the gallbladder. The common bile duct is upper limits of normal in diameter. There is no definitive sonographic evidence of cholecystitis. If cholecystitis remains a c linical concern, nuclear medicine HIDA scan can be obtained to further evaluate. Signer Name: Hemanth Conde MD Signed: 05/13/2021 6:30 PM Workstation Name: [id number]
[2021-05-13] MEDS ORDERED: DEXTROSE 50% IN WATER (25GM) 50 ML SYRINGE IV PRN (18:45)
[2021-05-13 19:31] LABS: Bilirubin,Urine NEG (Negative); Blood,Urine NEG (Negative); Color,Urine Straw (Yellow); Protein,Urine <15 mg/dL mg/dL (Negative); Urobilinogen,Urine < 2.0 mg/dL (<2.0); WBC,Urine < 1.0 /HPF (0.0-6.0)
[2021-05-13 19:39] LABS: Amphetamine Screen,Urine Negative; Benzodiazepines Screen,Urine Negative; Cannabinoid Screen,Urine Negative; Methadone Screen,Urine Negative; Opiate Screen,Urine Negative
[2021-05-13 19:50] LABS: Cocaine Screen,Urine Positive
[2021-05-13] MEDS ORDERED: metroNIDAZOLE/NS 500 MG/100 ML 500 MG/100 ML BAG IV NR (20:00)
[2021-05-13] MEDS: INSULIN REGULAR, HUMAN 100 UNITS/1 ML SUB-Q SCH ×2 (20:05→23:36)
[2021-05-13] MEDS ORDERED: INSULIN REGULAR, HUMAN 100 UNITS/1 ML SUB-Q SCH (22:00)
[2021-05-13] MEDS ORDERED: ACETAMINOPHEN 325 MG TAB PO PRN (23:15)
--- NOTE | 2021-05-13 23:29 | History and Physical Report ---
History of Present Illness Date of examination: 05/13/21 Date of admission: 05/13/21 17:10 Chief complaint: High blood glucose levels History of present illness: 35-year-old male with history of insulin-dependent diabetes and severe noncompliance lives in a shelter. Patient is a very poor historian. Patient was sent for high blood glucose levels. In the emergency room patient was found to have unsteady gait which has been there for more than a year. Patient has a shuffling gait. Patient stated that several years been walking for the last 1 to 1-1/2 years. Smokes about a pack a day. He has numbness and tingling in both hands and feet. No fever or chills. Has poor dentition. - Past Medical History --Diabetes: Yes Additional medical history: Left perianal abscess - Surgical History Additional Surgical History: Incision and drainage perianal abscess - Social History Smoking Status: Current Every Day Smoker - Medications Home Medications: Home Medications Medication Instructions Recorded Confirmed Last Taken Type Balsalazide Disodium [Colazal] 750 mg PO TID 03/31/20 05/01/20 Unknown History Potassium Chloride [K-Dur] 10 meq PO BID 03/31/20 05/01/20 Unknown History ursodioL [Ursodiol] 300 mg PO BID 03/31/20 05/01/20 Unknown History Acetaminophen [Acetaminophen TAB] 650 mg PO Q4H PRN tablet 04/04/20 05/01/20 Unknown Rx Zinc Oxide 1 applic TP BID #7 tube 04/12/20 05/01/20 Unknown Rx oxyCODONE /ACETAMINOPHEN [Percocet 1 tab PO Q6H PRN #14 tablet 05/04/20 Unknown Rx 5/325 mg] Potassium Chloride 20 meq PO QDAY #14 packet 05/14/20 Unknown Rx Acetaminophen [Acetaminophen TAB] 650 mg PO Q4H PRN tablet 06/18/20 Unknown Rx Insulin Detemir [Levemir VIAL] 25 unit SQ QHS #1 vial 06/18/20 Unknown Rx Insulin NPH/Regular [NovoLIN 70/30] 4 unit SUB-Q BID #1 vial 06/18/20 Unknown Rx Loperamide [Imodium] 2 mg PO TID #90 capsule 06/18/20 Unknown Rx Magnesium Oxide [Mag-Ox] 400 mg PO QDAY #14 tablet 08/19/20 Unknown Rx Nicotine [Habitrol] 7 mg TD QDAY #30 patch 06/18/20 Unknown Rx OLANzapine [ZyPREXA] 5 mg PO DAILY #30 tablet 06/18/20 Unknown Rx Tamsulosin [Flomax] 0.4 mg PO QDAY #30 cap 06/18/20 Unknown Rx Review of Systems ROS: Stated complaint: GENERAL ILLNESS Other details as noted in HPI Constitutional: denies: chills, fever Eyes: denies: vision change ENT: dental pain. denies: throat pain, congestion Respiratory: cough, shortness of breath Cardiovascular: denies: chest pain, palpitations, syncope Gastrointestinal: denies: abdominal pain, nausea, vomiting, diarrhea Genitourinary: denies: dysuria, frequency Musculoskeletal: denies: back pain, joint swelling Skin: lesions Neurological: paresthesias, abnormal gait. denies: headache, weakness, numbness Medications and Allergies Allergies Allergy/AdvReac Type Severity Reaction Status Date / Time Sulfa (Sulfonamide Allergy Rash Verified 05/06/20 09:28 Antibiotics) Home Medications Medication Instructions Recorded Confirmed Last Taken Type Balsalazide Disodium [Colazal] 750 mg PO TID 03/31/20 05/14/21 05/12/21 History Potassium Chloride [K-Dur] 10 meq PO BID 03/31/20 05/14/21 05/12/21 History ursodioL [Ursodiol] 300 mg PO BID 03/31/20 05/14/21 05/12/21 History Acetaminophen [Acetaminophen TAB] 650 mg PO Q4H PRN tablet 04/04/20 05/14/21 Rx Zinc Oxide 1 applic TP BID #7 tube 04/12/20 05/14/21 05/14/21 03:49 Rx oxyCODONE /ACETAMINOPHEN [Percocet 1 tab PO Q6H PRN #14 tablet 05/04/20 05/14/21 05/12/21 Rx 5/325 mg] Potassium Chloride 20 meq PO QDAY #14 packet 05/14/20 05/14/21 05/12/21 Rx Acetaminophen [Acetaminophen TAB] 650 mg PO Q4H PRN tablet 06/18/20 05/14/21 05/12/21 Rx Insulin Detemir [Levemir VIAL] 25 unit SQ QHS #1 vial 06/18/20 05/14/21 05/12/21 Rx Insulin NPH/Regular [NovoLIN 70/30] 4 unit SUB-Q BID #1 vial 06/18/20 05/14/21 05/11/21 Rx Loperamide [Imodium] 2 mg PO TID #90 capsule 06/18/20 05/14/21 05/12/21 Rx Magnesium Oxide [Mag-Ox] 400 mg PO QDAY #14 tablet 06/18/20 05/14/21 05/12/21 Rx Nicotine [Habitrol] 7 mg TD QDAY #30 patch 06/18/20 05/14/21 05/12/21 Rx OLANzapine [ZyPREXA] 5 mg PO DAILY #30 tablet 06/18/20 05/14/21 05/12/21 Rx Tamsulosin [Flomax] 0.4 mg PO QDAY #30 cap 06/18/20 05/14/21 05/12/21 Rx Active Meds: Active Medications Dextrose (Dextrose 50% In Water (25gm) 50 Ml Syringe) 50 ml IV Q30MIN PRN; Protocol PRN Reason: Hypoglycemia Insulin Human Regular (Insulin Regular, Human 100 Units/1 Ml) 0 units SUB-Q [facility]; Protocol Last Admin: 05/13/21 20:05 Dose: Not Given Documented by: Exam - Constitutional Vitals: Temp Pulse Resp BP Pulse Ox 98.9 F 87 19 112/78 99 05/13/21 20:51 05/13/21 20:51 05/13/21 20:51 05/13/21 20:51 05/13/21 20:51 General appearance: Present: no acute distress, well-nourished - EENT Eyes: Present: PERRL ENT: hearing intact, clear oral mucosa - Neck Neck: Present: supple, normal ROM - Respiratory Respiratory effort: normal Respiratory: bilateral: CTA - Cardiovascular Heart rate: 78 Rhythm: regular Heart Sounds: Present: S1 & S2. Absent: rub, click - Extremities Extremities: pulses symmetrical, No edema Peripheral Pulses: within normal limits - Abdominal General gastrointestinal: Present: soft, non-tender, non-distended, normal bowel sounds Male genitourinary: Present: normal - Integumentary Integumentary: Present: clear, warm, dry - Musculoskeletal Musculoskeletal: strength equal bilaterally, generalized weakness - Psychiatric Psychiatric: appropriate mood/affect, intact judgment & insight - Neurologic Neurologic: CNII-XII intact, moves all extremities, other (Abnormal gait--shuffles but not ataxic) - Allied Health Allied health notes reviewed: nursing, case management HEART Score - HEART Score Troponin: Troponin T < 0.010 ng/mL (0.00-0.029) 05/13/21 14:15 Results - Labs CBC & Chem 7: 05/13/21 14:15 05/13/21 14:15 Labs: Laboratory Last Values WBC 13.8 K/mm3 (4.5-11.0) H 05/13/21 14:15 RBC 4.87 M/mm3 (3.65-5.03) 05/13/21 14:15 Hgb 15.1 gm/dl (11.8-15.2) 05/13/21 14:15 Hct 42.1 % (35.5-45.6) 05/13/21 14:15 MCV 87 fl (84-94) 05/13/21 14:15 MCH 31 pg (28-32) 05/13/21 14:15 MCHC 36 % (32-34) H 05/13/21 14:15 RDW 16.0 % (13.2-15.2) H 05/13/21 14:15 Plt Count 154 K/mm3 (140-440) 05/13/21 14:15 Lymph % (Auto) 11.7 % (13.4-35.0) L 05/13/21 14:15 [place] % (Auto) 4.6 % (0.0-7.3) 05/13/21 14:15 Eos % (Auto) 0.7 % (0.0-4.3) 05/13/21 14:15 Baso % (Auto) 0.3 % (0.0-1.8) 05/13/21 14:15 Lymph # (Auto) 1.6 K/mm3 (1.2-5.4) 05/13/21 14:15 [place] # (Auto) 0.6 K/mm3 (0.0-0.8) 05/13/21 14:15 Eos # (Auto) 0.1 K/mm3 (0.0-0.4) 05/13/21 14:15 Baso # (Auto) 0.0 K/mm3 (0.0-0.1) 05/13/21 14:15 Seg Neutrophils % 82.7 % (40.0-70.0) H 05/13/21 14:15 Seg Neutrophils # 11.4 K/mm3 (1.8-7.7) H 05/13/21 14:15 PT 13.3 Sec. (12.2-14.9) 05/13/21 14:15 INR 0.96 (0.87-1.13) 05/13/21 14:15 APTT 25.5 Sec. (24.2-36.6) 05/13/21 14:15 VBG pH 7.438 (7.320-7.420) H 05/13/21 14:41 Sodium 132 mmol/L (137-145) L 05/13/21 14:15 Potassium 3.3 mmol/L (3.6-5.0) L 05/13/21 14:15 Chloride 87.0 mmol/L (98-107) L 05/13/21 14:15 Carbon Dioxide 32 mmol/L (22-30) H 05/13/21 14:15 Anion Gap 16 mmol/L 05/13/21 14:15 BUN 12 mg/dL (9-20) 05/13/21 14:15 Creatinine 0.5 mg/dL (0.8-1.3) L 05/13/21 14:15 Estimated GFR > 60 ml/min 05/13/21 14:15 BUN/Creatinine Ratio 24 % 05/13/21 14:15 Glucose 439 mg/dL (75-100) H 05/13/21 14:15 POC Glucose 401 mg/dL (70-105) H 05/13/21 21:17 Lactic Acid 0.90 mmol/L (0.7-2.0) 05/13/21 17:08 Calcium 9.5 mg/dL (8.4-10.2) 05/13/21 14:15 Magnesium 1.10 mg/dL (1.7-2.3) L 05/13/21 14:15 Total Bilirubin 1.00 mg/dL (0.1-1.2) 05/13/21 14:15 AST 295 units/L (5-40) H 05/13/21 14:15 ALT 226 units/L (7-56) H 05/13/21 14:15 Alkaline Phosphatase 1367 units/L (35-129) H 05/13/21 14:15 Troponin T < 0.010 ng/mL (0.00-0.029) 05/13/21 14:15 Total Protein 7.3 g/dL (6.3-8.2) 05/13/21 14:15 Albumin 3.7 g/dL (3.9-5) L 05/13/21 14:15 Albumin/Globulin Ratio 1.0 % 05/13/21 14:15 Lipase 28 units/L (13-60) 05/13/21 14:15 Urine Color Straw (Yellow) 05/13/21 19:22 Urine Turbidity Clear (Clear) 05/13/21 19:22 Urine pH 7.0 (5.0-7.0) 05/13/21 19:22 Ur Specific [place] 1.022 (1.003-1.030) 05/13/21 19:22 Urine Protein <15 mg/dl mg/dL (Negative) 05/13/21 19:22 Urine Glucose (UA) >=500 mg/dL (Negative) 05/13/21 19:22 Urine Ketones Tr mg/dL (Negative) 05/13/21 19:22 Urine Blood Neg (Negative) 05/13/21 19:22 Urine Nitrite Neg (Negative) 05/13/21 19:22 Urine Bilirubin Neg (Negative) 05/13/21 19:22 Urine Urobilinogen < 2.0 mg/dL (<2.0) 05/13/21 19:22 Ur Leukocyte Esterase Neg (Negative) 05/13/21 19:22 Urine WBC (Auto) < 1.0 /HPF (0.0-6.0) 05/13/21 19:22 Urine RBC (Auto) 1.0 /HPF (0.0-6.0) 05/13/21 19:22 Urine Opiates Screen Negative 05/13/21 19:22 Urine Methadone Screen Negative 05/13/21 19:22 Ur Barbiturates Screen Negative 05/13/21 19:22 Ur Phencyclidine Scrn Negative 05/13/21 19:22 Ur Amphetamines Screen Negative 05/13/21 19:22 U Benzodiazepines Scrn Negative 05/13/21 19:22 Urine Cocaine Screen Positive 05/13/21 19:22 U Marijuana (THC) Screen Negative 05/13/21 19:22 Drugs of Abuse Note Disclamer 05/13/21 19:22 Microbiology: Microbiology 05/13/21 14:15 Peripheral/Venous Blood Culture - Preliminary Culture in Progress 05/13/21 14:15 Peripheral/Venous Blood Culture - Preliminary Culture in Progress - Imaging and Cardiology Imaging and Cardiology: Chest x-ray No acute findings Head CT No acute intracranial abnormalities Cervical C-spine No acute fracture or subluxation of the spine and neutral position Abdominal ultrasound There is sludge in the lumen of the gallbladder The common bile duct is in the upper limits of normal in diameter There is no definitive sonographic evidence of cholecystitis. Assessment and Plan Advance Directives: Yes (Full code) VTE prophylaxis?: Chemical Plan of care discussed with patient/family: Yes - Patient Problems (1) Hyperosmolar hyperglycemic state (HHS) Current Visit: Yes Status: Acute Plan to address problem: Patient is very noncompliant Humalog at treatment doses and high-dose sliding scale coverage Initiated on insulin twice a day Check a hemoglobin A1c (2) Abnormality of gait Current Visit: Yes Status: Chronic Plan to address problem: Reason is unclear LS findings CT scan requested Neuro consult requested CAT scan of the C-spine is normal (3) Hypokalemia Current Visit: Yes Status: Acute Plan to address problem: Supplemented (4) Hypomagnesemia Current Visit: Yes Status: Acute Plan to address problem: Supplemented (5) Transaminitis Current Visit: Yes Status: Acute Plan to address problem: Check hepatitis profile (6) Cocaine dependence Current Visit: Yes Status: Chronic Qualifiers: Substance use status: uncomplicated Qualified Code(s): F14.20 - Cocaine dependence, uncomplicated Plan to address problem: Patient counseled (7) DVT prophylaxis Current Visit: Yes Status: Acute Plan to address problem: On heparin and GI prophylaxis
[2021-05-13] MEDS ORDERED: URSODIOL 300 MG PO SCH (23:30)
[2021-05-14 05:13] VITALS: BP 106/75
[2021-05-14] MEDS ORDERED: INSULIN LISPRO 100 UNIT/ML SUB-Q SCH (07:30)
[2021-05-14] MEDS ORDERED: INSULIN REGULAR, HUMAN 100 UNITS/1 ML SUB-Q SCH (07:30)
--- NOTE | 2021-05-14 07:43 | Consultation ---
History of Present Illness Consult date: 05/14/21 Reason for Consult: Gait abnormality History of present illness: High blood glucose levels History of present illness: 35-year-old male with history of insulin-dependent diabetes and severe noncompliance lives in a [facility]. Patient is a very poor historian. Patient was sent for high blood glucose levels. In the emergency room patient was found to have unsteady gait which has been there for more than a year. Patient has a shuffling gait as per record according to him her is gradually getting weaker and with tendency to fall . Patient denied family hx of similar nature stated that Smokes about a pack a day. He has numbness and tingling in both hands and feet. No fever or chills. Has poor dentition. and poor neutrition in ER UDR is positive for coccain -CT brain is unremarkable - Past Medical History --Diabetes: Yes Additional medical history: Left perianal abscess - Surgical History Additional Surgical History: Incision and drainage perianal abscess - Social History Smoking Status: Current Every Day Smoker - Medications Home Medications: Home Medications Medication Instructions Recorded Confirmed Last Taken Type Balsalazide Disodium [Colazal] 750 mg PO TID 03/31/20 05/01/20 Unknown History Potassium Chloride [K-Dur] 10 meq PO BID 03/31/20 05/01/20 Unknown History ursodioL [Ursodiol] 300 mg PO BID 03/31/20 05/01/20 Unknown History Acetaminophen [Acetaminophen TAB] 650 mg PO Q4H PRN tablet 04/04/20 05/01/20 Unknown Rx Zinc Oxide 1 applic TP BID #7 tube 04/12/20 05/01/20 Unknown Rx oxyCODONE /ACETAMINOPHEN [Percocet 1 tab PO Q6H PRN #14 tablet 05/04/20 Unknown Rx 5/325 mg] Potassium Chloride 20 meq PO QDAY #14 packet 05/14/20 Unknown Rx Acetaminophen [Acetaminophen TAB] 650 mg PO Q4H PRN tablet 06/18/20 Unknown Rx Insulin Detemir [Levemir VIAL] 25 unit SQ QHS #1 vial 06/18/20 Unknown Rx Insulin NPH/Regular [NovoLIN 70/30] 4 unit SUB-Q BID #1 vial 06/18/20 Unknown Rx Loperamide [Imodium] 2 mg PO TID #90 capsule 06/18/20 Unknown Rx Magnesium Oxide [Mag-Ox] 400 mg PO QDAY #14 tablet 06/18/20 Unknown Rx Nicotine [Habitrol] 7 mg TD QDAY #30 patch 06/18/20 Unknown Rx OLANzapine [ZyPREXA] 5 mg PO DAILY #30 tablet 06/18/20 Unknown Rx Tamsulosin [Flomax] 0.4 mg PO QDAY #30 cap 06/18/20 Unknown Rx Review of Systems ROS: Stated complaint: GENERAL ILLNESS Other details as noted in HPI Constitutional: denies: chills, fever Eyes: denies: vision change ENT: dental pain. denies: throat pain, congestion Respiratory: cough, shortness of breath Cardiovascular: denies: chest pain, palpitations, syncope Gastrointestinal: denies: abdominal pain, nausea, vomiting, diarrhea Genitourinary: denies: dysuria, frequency Musculoskeletal: denies: back pain, joint swelling Skin: lesions Neurological: paresthesias, abnormal gait. denies: headache, weakness, numbness Medications and Allergies Allergies Allergy/AdvReac Type Severity Reaction Status Date / Time Sulfa (Sulfonamide Allergy Rash Verified 05/06/20 09:28 Antibiotics) Home Medications Medication Instructions Recorded Confirmed Last Taken Type Balsalazide Disodium [Colazal] 750 mg PO TID 03/31/20 05/14/21 05/12/21 History Potassium Chloride [K-Dur] 10 meq PO BID 03/31/20 05/14/21 05/12/21 History ursodioL [Ursodiol] 300 mg PO BID 03/31/20 05/14/21 05/12/21 History Acetaminophen [Acetaminophen TAB] 650 mg PO Q4H PRN tablet 04/04/20 05/14/21 05/12/21 Rx Zinc Oxide 1 applic TP BID #7 tube 04/12/20 05/14/21 05/14/21 03:49 Rx oxyCODONE /ACETAMINOPHEN [Percocet 1 tab PO Q6H PRN #14 tablet 05/04/20 05/14/21 05/12/21 Rx 5/325 mg] Potassium Chloride 20 meq PO QDAY #14 packet 05/14/20 05/14/21 05/12/21 Rx Acetaminophen [Acetaminophen TAB] 650 mg PO Q4H PRN tablet 06/18/20 05/14/21 05/12/21 Rx Insulin Detemir [Levemir VIAL] 25 unit SQ QHS #1 vial 06/18/20 05/14/21 05/12/21 Rx Insulin NPH/Regular [NovoLIN 70/30] 4 unit SUB-Q BID #1 vial 06/18/20 05/14/21 05/11/21 Rx Loperamide [Imodium] 2 mg PO TID #90 capsule 06/18/20 05/14/21 05/12/21 Rx Magnesium Oxide [Mag-Ox] 400 mg PO QDAY #14 tablet 06/18/20 05/14/21 05/12/21 Rx Nicotine [Habitrol] 7 mg TD QDAY #30 patch 06/18/20 05/14/21 05/12/21 Rx OLANzapine [ZyPREXA] 5 mg PO DAILY #30 tablet 06/18/20 05/14/21 05/12/21 Rx Tamsulosin [Flomax] 0.4 mg PO QDAY #30 cap 06/18/20 05/14/21 05/12/21 Rx Active Meds: Active Medications Dextrose (Dextrose 50% In Water (25gm) 50 Ml Syringe) 50 ml IV Q30MIN PRN; Protocol PRN Reason: Hypoglycemia Insulin Human Regular (Insulin Regular, Human 100 Units/1 Ml) 0 units SUB-Q [facility]; Protocol Last Admin: 05/13/21 20:05 Dose: Not Given Documented by: Medications and Allergies Allergies Allergy/AdvReac Type Severity Reaction Status Date / Time Sulfa (Sulfonamide Allergy Rash Verified 05/06/20 09:28 Antibiotics) Home Medications Medication Instructions Recorded Confirmed Last Taken Type Balsalazide Disodium [Colazal] 750 mg PO TID 03/31/20 05/14/21 05/12/21 History Potassium Chloride [K-Dur] 10 meq PO BID 03/31/20 05/14/21 05/12/21 History ursodioL [Ursodiol] 300 mg PO BID 03/31/20 05/14/21 05/12/21 History Acetaminophen [Acetaminophen TAB] 650 mg PO Q4H PRN tablet 04/04/20 05/14/21 05/12/21 Rx Zinc Oxide 1 applic TP BID #7 tube 04/12/20 05/14/21 05/14/21 03:49 Rx oxyCODONE /ACETAMINOPHEN [Percocet 1 tab PO Q6H PRN #14 tablet 05/04/20 05/14/21 05/12/21 Rx 5/325 mg] Potassium Chloride 20 meq PO QDAY #14 packet 05/14/20 05/14/21 05/12/21 Rx Acetaminophen [Acetaminophen TAB] 650 mg PO Q4H PRN tablet 06/18/20 05/14/21 05/12/21 Rx Insulin Detemir [Levemir VIAL] 25 unit SQ QHS #1 vial 06/18/20 05/14/21 05/12/21 Rx Insulin NPH/Regular [NovoLIN 70/30] 4 unit SUB-Q BID #1 vial 06/18/20 05/14/21 05/11/21 Rx Loperamide [Imodium] 2 mg PO TID #90 capsule 06/18/20 05/14/21 05/12/21 Rx Magnesium Oxide [Mag-Ox] 400 mg PO QDAY #14 tablet 06/18/20 05/14/21 05/12/21 Rx Nicotine [Habitrol] 7 mg TD QDAY #30 patch 06/18/20 05/14/21 05/12/21 Rx OLANzapine [ZyPREXA] 5 mg PO DAILY #30 tablet 06/18/20 05/14/21 05/12/21 Rx Tamsulosin [Flomax] 0.4 mg PO QDAY #30 cap 06/18/20 05/14/21 05/12/21 Rx Active Meds: Active Medications Acetaminophen (Acetaminophen 325 Mg Tab) 650 mg PO Q4H PRN PRN Reason: Pain MILD(1-3)/Fever >100.5/VO Last Admin: 05/14/21 05:15 Dose: 650 mg Documented by: Dextrose (Dextrose 50% In Water (25gm) 50 Ml Syringe) 50 ml IV Q30MIN PRN; Protocol PRN Reason: Hypoglycemia Insulin Glargine (Insulin Glargine 100 Units/Ml) 25 units SUB-Q QHS [facility] Insulin Human Isoph/Insulin Regular (Insulin Nph/Regular 70/30 Inj) 15 unit SUB-Q BID [facility] Insulin Human Lispro (Insulin Lispro 100 Unit/Ml) 0 unit SUB-Q ACHS [facility]; Protocol Insulin Human Regular (Insulin Regular, Human 100 Units/1 Ml) 0 units SUB-Q ACHS [facility]; Protocol Last Admin: 05/13/21 23:36 Dose: Not Given Documented by: Magnesium Oxide (Magnesium Oxide 400 Mg Tab) 400 mg PO QDAY [facility] Miscellaneous Medication (Balsalazide Disodium [Colazal]) 750 mg PO TID [facility] Miscellaneous Medication (Ursodiol [Ursodiol]) 300 mg PO BID [facility] Nicotine (Nicotine 7 Mg/24 Hr Patch) 7 mg TD QDAY [facility] Tamsulosin HCl (Tamsulosin 0.4 Mg Cap) 0.4 mg PO QDAY [facility] Physical Examination - Vital Signs Vital Signs: Vital Signs Temp Pulse Resp BP Pulse Ox 99.0 F 68 18 98/66 99 05/13/21 14:20 05/13/21 14:20 05/13/21 14:20 05/13/21 14:20 05/13/21 14:20 - Constitutional General appearance: uncomfortable - EENT EENT: Present: PERRL, mucous membranes moist - Respiratory Respiratory: Present: chest non-tender, lungs clear, rhonchi - Cardiovascular Cardiovascular: Present: regular rate, normal S1, normal S2 Extremities: Present: no peripheral edema bilatateraly, no clubbing, cyanosis - Gastrointestinal Gastrointestinal: Present: normoactive bowel sounds - Integumentary Integumentary: Present: normal, other (perianal ulcer) - Neurologic Cranial nerve examination: PERRL, EOMI, intact Speech examination: intact Sensorimotor examination: other (significant weakness in bilateral tricepse more R>L , bilateral feet dorsi and Planter version , absent sensation to pin briks and positopn sense bilteal gait not done , reflexes are absent in both kness and biceps) Results - Laboratory Findings CBC and BMP: 05/13/21 14:15 05/13/21 14:15 Abnormal Lab Findings: Abnormal Labs 05/13/21 05/13/21 05/13/21 14:15 14:15 14:15 WBC 13.8 H MCHC 36 H RDW 16.0 H Lymph % (Auto) 11.7 L Seg Neutrophils % 82.7 H Seg Neutrophils # 11.4 H VBG pH Sodium 132 L Potassium 3.3 L Chloride 87.0 L Carbon Dioxide 32 H Creatinine 0.5 L Glucose 439 H POC Glucose Magnesium 1.10 L AST 295 H ALT 226 H Alkaline Phosphatase 1367 H Albumin 3.7 L 05/13/21 05/13/21 05/13/21 14:41 14:41 18:43 WBC MCHC RDW Lymph % (Auto) Seg Neutrophils % Seg Neutrophils # VBG pH 7.438 H Sodium Potassium Chloride Carbon Dioxide Creatinine Glucose POC Glucose 433 H 449 H Magnesium AST ALT Alkaline Phosphatase Albumin 05/13/21 05/13/21 05/14/21 19:48 21:17 06:57 WBC MCHC RDW Lymph % (Auto) Seg Neutrophils % Seg Neutrophils # VBG pH Sodium Potassium Chloride Carbon Dioxide Creatinine Glucose POC Glucose 393 H 401 H 285 H Magnesium AST ALT Alkaline Phosphatase Albumin Assessment and Plan Assessment and Plan Advance Directives: Yes (Full code) VTE prophylaxis?: Chemical Plan of care discussed with patient/family: Yes - Patient Problems # Hyperosmolar hyperglycemic state (HHS) Patient is very noncompliant Humalog at treatment doses and high-dose sliding scale coverage Initiated on insulin twice a day Check a hemoglobin A1c # Abnormality of gait -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 -NCS is of value can follow up with neurology as out pt. # Hypokalemia Supplemented # Hypomagnesemia -Supplemented # Transaminitis -Check hepatitis profile # Cocaine dependence -Patient counseled -Brain MRI # DVT prophylaxis -On heparin and GI prophylaxis will follow as needed
[2021-05-14] MEDS ORDERED: TAMSULOSIN 0.4 MG CAP PO SCH (08:00)
[2021-05-14] MEDS ORDERED: BALSALAZIDE DISODIUM 750 MG PO SCH (08:00)
[2021-05-14] MEDS ORDERED: MAGNESIUM OXIDE 400 MG TAB PO SCH (08:00)
[2021-05-14] MEDS ORDERED: INSULIN NPH/REGULAR 70/30 INJ SUB-Q SCH (08:00)
[2021-05-14] MEDS ORDERED: NICOTINE 7 MG/24 HR PATCH TD SCH (08:00)
--- NOTE | 2021-05-14 08:16 | Progress Note ---
Assessment and Plan Assessment and plan: (1) Hyperosmolar hyperglycemic state (HHS) Current Visit: Yes Status: Acute Plan to address problem: Patient is very noncompliant Humalog at treatment doses and high-dose sliding scale coverage Initiated on insulin twice a day Check a hemoglobin A1c (2) Abnormality of gait Current Visit: Yes Status: Chronic Plan to address problem: Reason is unclear LS findings CT scan requested Neuro consult requested CAT scan of the C-spine is normal (3) Hypokalemia Current Visit: Yes Status: Acute Plan to address problem: Supplemented (4) Hypomagnesemia Current Visit: Yes Status: Acute Plan to address problem: Supplemented (5) Transaminitis Current Visit: Yes Status: Acute Plan to address problem: Check hepatitis profile (6) Cocaine dependence Current Visit: Yes Status: Chronic Qualifiers: Substance use status: uncomplicated Qualified Code(s): F14.20 - Cocaine dependence, uncomplicated Plan to address problem: Patient counseled (7) DVT prophylaxis Current Visit: Yes Status: Acute Plan to address problem: On heparin and GI prophylaxis 05/14/2021 -Diabetes mellitus with hyperglycemia; blood sugar is still high. Patient is on Lantus and sliding scale insulin. Hemoglobin A1c is pending. -UDS is positive for cocaine counseled about cessation of using cocaine -Neurology was consulted for shuffling gait; CT of the lumbar spine was done and reading is pending. -Patient lives in residential. History Interval history: Patient was seen and evaluated this morning Hospitalist Physical - Physical exam Narrative exam: Not in cardiopulmonary distress. The patient appeared well nourished and normally developed. Vital signs as documented. Head exam is unremarkable. No scleral icterus . Neck is without jugular venous distension, thyromegaly, or carotid bruits. Lungs are clear to auscultation. Cardiac exam reveals regular rate and Rhythm. Abdominal exam reveals normal bowel sounds, nontender, no organomegaly. Extremities are nonedematous and both femoral and pedal pulses are normal. 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 No focal weakness. - Constitutional Vitals: Temp Pulse Resp BP Pulse Ox 98.2 F 83 18 106/75 97 05/14/21 05:00 05/14/21 05:00 05/14/21 05:00 05/14/21 05:00 05/14/21 05:00 General appearance: Present: no acute distress, well-nourished HEART Score - HEART Score Troponin: Troponin T < 0.010 ng/mL (0.00-0.029) 05/13/21 14:15 Results - Labs CBC & Chem 7: 05/13/21 14:15 05/13/21 14:15 Labs: Laboratory Last Values WBC 13.8 K/mm3 (4.5-11.0) H 05/13/21 14:15 RBC 4.87 M/mm3 (3.65-5.03) 05/13/21 14:15 Hgb 15.1 gm/dl (11.8-15.2) 05/13/21 14:15 Hct 42.1 % (35.5-45.6) 05/13/21 14:15 MCV 87 fl (84-94) 05/13/21 14:15 MCH 31 pg (28-32) 05/13/21 14:15 MCHC 36 % (32-34) H 05/13/21 14:15 RDW 16.0 % (13.2-15.2) H 05/13/21 14:15 Plt Count 154 K/mm3 (140-440) 05/13/21 14:15 Lymph % (Auto) 11.7 % (13.4-35.0) L 05/13/21 14:15 [place] % (Auto) 4.6 % (0.0-7.3) 05/13/21 14:15 Eos % (Auto) 0.7 % (0.0-4.3) 05/13/21 14:15 Baso % (Auto) 0.3 % (0.0-1.8) 05/13/21 14:15 Lymph # (Auto) 1.6 K/mm3 (1.2-5.4) 05/13/21 14:15 [place] # (Auto) 0.6 K/mm3 (0.0-0.8) 05/13/21 14:15 Eos # (Auto) 0.1 K/mm3 (0.0-0.4) 05/13/21 14:15 Baso # (Auto) 0.0 K/mm3 (0.0-0.1) 05/13/21 14:15 Seg Neutrophils % 82.7 % (40.0-70.0) H 05/13/21 14:15 Seg Neutrophils # 11.4 K/mm3 (1.8-7.7) H 05/13/21 14:15 PT 13.3 Sec. (12.2-14.9) 05/13/21 14:15 INR 0.96 (0.87-1.13) 05/13/21 14:15 APTT 25.5 Sec. (24.2-36.6) 05/13/21 14:15 VBG pH 7.438 (7.320-7.420) H 05/13/21 14:41 Sodium 132 mmol/L (137-145) L 05/13/21 14:15 Potassium 3.3 mmol/L (3.6-5.0) L 05/13/21 14:15 Chloride 87.0 mmol/L (98-107) L 05/13/21 14:15 Carbon Dioxide 32 mmol/L (22-30) H 05/13/21 14:15 Anion Gap 16 mmol/L 05/13/21 14:15 BUN 12 mg/dL (9-20) 05/13/21 14:15 Creatinine 0.5 mg/dL (0.8-1.3) L 05/13/21 14:15 Estimated GFR > 60 ml/min 05/13/21 14:15 BUN/Creatinine Ratio 24 % 05/13/21 14:15 Glucose 439 mg/dL (75-100) H 05/13/21 14:15 POC Glucose 285 mg/dL (70-105) H 05/14/21 06:57 Lactic Acid 0.90 mmol/L (0.7-2.0) 05/13/21 17:08 Calcium 9.5 mg/dL (8.4-10.2) 05/13/21 14:15 Magnesium 1.10 mg/dL (1.7-2.3) L 05/13/21 14:15 Total Bilirubin 1.00 mg/dL (0.1-1.2) 05/13/21 14:15 AST 295 units/L (5-40) H 05/13/21 14:15 ALT 226 units/L (7-56) H 05/13/21 14:15 Alkaline Phosphatase 1367 units/L (35-129) H 05/13/21 14:15 Troponin T < 0.010 ng/mL (0.00-0.029) 05/13/21 14:15 Total Protein 7.3 g/dL (6.3-8.2) 05/13/21 14:15 Albumin 3.7 g/dL (3.9-5) L 05/13/21 14:15 Albumin/Globulin Ratio 1.0 % 05/13/21 14:15 Lipase 28 units/L (13-60) 05/13/21 14:15 Urine Color Straw (Yellow) 05/13/21 19:22 Urine Turbidity Clear (Clear) 05/13/21 19:22 Urine pH 7.0 (5.0-7.0) 05/13/21 19:22 Ur Specific Maybeury 1.022 (1.003-1.030) 05/13/21 19:22 Urine Protein <15 mg/dl mg/dL (Negative) 05/13/21 19:22 Urine Glucose (UA) >=500 mg/dL (Negative) 05/13/21 19:22 Urine Ketones Tr mg/dL (Negative) 05/13/21 19:22 Urine Blood Neg (Negative) 05/13/21 19:22 Urine Nitrite Neg (Negative) 05/13/21 19:22 Urine Bilirubin Neg (Negative) 05/13/21 19:22 Urine Urobilinogen < 2.0 mg/dL (<2.0) 05/13/21 19:22 Ur Leukocyte Esterase Neg (Negative) 05/13/21 19:22 Urine WBC (Auto) < 1.0 /HPF (0.0-6.0) 05/13/21 19:22 Urine RBC (Auto) 1.0 /HPF (0.0-6.0) 05/13/21 19:22 Urine Opiates Screen Negative 05/13/21 19:22 Urine Methadone Screen Negative 05/13/21 19:22 Ur Barbiturates Screen Negative 05/13/21 19:22 Ur Phencyclidine Scrn Negative 05/13/21 19:22 Ur Amphetamines Screen Negative 05/13/21 19:22 U Benzodiazepines Scrn Negative 05/13/21 19:22 Urine Cocaine Screen Positive 05/13/21 19:22 U Marijuana (THC) Screen Negative 05/13/21 19:22 Drugs of Abuse Note Disclamer 05/13/21 19:22 Microbiology: Microbiology 05/13/21 14:15 Peripheral/Venous Blood Culture - Preliminary Culture in Progress 05/13/21 14:15 Peripheral/Venous Blood Culture - Preliminary Culture in Progress Active Medications - Current Medications Current Medications: Generic Name Dose Route Start Last Admin Trade Name Jaden PRN Reason Stop Dose Admin Acetaminophen 650 mg 05/13/21 23:15 05/14/21 05:15 Acetaminophen 325 Mg Tab PO 650 mg Q4H PRN Administration Pain MILD(1-3)/Fever >100.5/VO Dextrose 50 ml 05/13/21 18:45 Dextrose 50% In Water (25gm) 50 Ml Syringe IV Q30MIN PRN Hypoglycemia Protocol Insulin Glargine 25 units 05/14/21 21:00 Insulin Glargine 100 Units/Ml SUB-Q QHS [facility] Insulin Human Isoph/Insulin Regular 15 unit 05/14/21 08:00 Insulin Nph/Regular 70/30 Inj SUB-Q BID [facility] Insulin Human Lispro 0 unit 05/14/21 07:30 Insulin Lispro 100 Unit/Ml SUB-Q ACHS [facility] Protocol Magnesium Oxide 400 mg 05/14/21 08:00 Magnesium Oxide 400 Mg Tab PO QDAY [facility] Miscellaneous Medication 750 mg 05/14/21 08:00 Balsalazide Disodium [Colazal] PO TID [facility] Miscellaneous Medication 300 mg 05/13/21 23:30 Ursodiol [Ursodiol] PO BID [facility] Nicotine 7 mg 05/14/21 08:00 Nicotine 7 Mg/24 Hr Patch TD QDAY [facility] Tamsulosin HCl 0.4 mg 05/14/21 08:00 Tamsulosin 0.4 Mg Cap PO QDAY [facility]
[2021-05-14] MEDS ORDERED: MULTIVITAMINS ,THERAPEUTIC TAB PO SCH (10:00)
[2021-05-14] MEDS ORDERED: THIAMINE 300 MG in SODIUM CHLORIDE 0.9% 50 ML IV SCH (10:00)
--- NOTE | 2021-05-14 10:28 | Cat Scan Report ---
CT LUMBAR SPINE WITH CONTRAST HISTORY: Ataxic gait COMPARISON: None TECHNIQUE: CT images of the lumbar spine were obtained following 100 mL of Omnipaque 300. Sagittal a nd coronal reformats were post-processed.All CT scans at this location are performed using CT dose re duction for ALARA by means of automated exposure control. CONTRAST: 100 mL of Omnipaque 300 FINDINGS: Alignment: Normal. No traumatic subluxation. Vertebrae:No significant abnormality. No fracture. Disc Spaces: No significant abnormality allowing for lack of intrathecal contrast. Facet Joints:No significant abnormality. Distal spinal cord: Subtle pial enhancement seen in the CT scan Additional Findings: None IMPRESSION: 1. No significant abnormality. Signer Name: Ben Devi MD Signed: 05/14/2021 10:24 AM Workstation Name: [id number]
--- NOTE | 2021-05-14 10:40 | Event Note ---
Date: 05/14/21 Patient left AMA before I evaluated the patient.
--- NOTE | 2021-05-14 10:48 | Electrocardiograph Report ---
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
--- NOTE | 2021-05-14 13:18 | Event Note ---
Date: 05/14/21 Unable to assess patient. Per nurse, the patient left AMA.
[2021-05-14] MEDS ORDERED: INSULIN GLARGINE 100 UNITS/ML SUB-Q SCH (21:00)
== END 2021-05-14 08:45 | disposition left against medical advice (07) | DRG 638 ==
LOC: ED 13:05 → 3A 17:10 → 3B 20:04
PROVIDERS: ADMIT Internal Medicine; ATTEND Internal Medicine
DX: E11.00 Type 2 diabetes mellitus with hyperosmolarity without nonketotic hyperglycemic-hyperosmolar coma (NKHHC) (principal); E87.1 Hypo-osmolality and hyponatremia; F14.20 Cocaine dependence, uncomplicated; R26.81 Unsteadiness on feet; E11.65 Type 2 diabetes mellitus with hyperglycemia; E87.6 Hypokalemia; E83.42 Hypomagnesemia; F20.9 Schizophrenia, unspecified; F17.210 Nicotine dependence, cigarettes, uncomplicated; E11.40 Type 2 diabetes mellitus with diabetic neuropathy, unspecified; R74.01 Elevation of levels of liver transaminase levels; R26.9 Unspecified abnormalities of gait and mobility; Z79.4 Long term (current) use of insulin; Z79.899 Other long term (current) drug therapy; Z79.891 Long term (current) use of opiate analgesic; Z79.01 Long term (current) use of anticoagulants; Z88.2 Allergy status to sulfonamides
CPT/HCPCS: 36415; 70450; 71045; 72125; 72132; 76705; 80053; 80307; 81001; 82140; 82805; 82962; 83690; 83735; 84484; 85025; 85610; 85730; 87040; 87086; 93005; 96365; 96366; 96368; G0378; J0696; J3370; J3475; J7030; Q9967

== ENCOUNTER 2021-05-26 16:16 | Emergency (ER) | payer MEDICAID ==
--- NOTE | 2021-05-26 17:03 | Emergency Department Report ---
<CLOVIS HUBBARD - Last Filed: 05/26/21 17:30> ED Psych HPI - General Stated Complaint: MH Time Seen by Provider: 05/26/21 16:54 - History of Present Illness Initial Comments: Patient is a 35 years old male with history of schizophrenia and insulin- dependent diabetes. Patient brought to the emergency room by his group managing director. She stated that patient was missed for approximately 3 weeks. She stated that patient returned today with confusion and they want him to be medically cleared before they can receive him. Patient has a strong smell of alcohol. Patient denied any suicidal or homicidal ideation. He denied any auditory or visual hallucination. 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 MD Complaint: other -: Sudden, unknown Associated Psychiatric Symptoms: suicidal ideation - Related Data Home Medications Medication Instructions Recorded Confirmed Last Taken Balsalazide Disodium [Colazal] 750 mg PO TID 03/31/20 05/14/21 05/12/21 Potassium Chloride [K-Dur] 10 meq PO BID 03/31/20 05/14/21 05/12/21 ursodioL [Ursodiol] 300 mg PO BID 03/31/20 05/14/21 05/12/21 Previous Rx's Medication Instructions Recorded Last Taken Type Acetaminophen [Acetaminophen TAB] 650 mg PO Q4H PRN tablet 04/04/20 05/12/21 Rx Zinc Oxide 1 applic TP BID #7 tube 04/12/20 05/14/21 03:49 Rx oxyCODONE /ACETAMINOPHEN [Percocet 1 tab PO Q6H PRN #14 tablet 05/04/20 05/12/21 Rx 5/325 mg] Potassium Chloride 20 meq PO QDAY #14 packet 05/14/20 05/12/21 Rx Acetaminophen [Acetaminophen TAB] 650 mg PO Q4H PRN tablet 06/18/20 05/12/21 Rx Insulin Detemir [Levemir VIAL] 25 unit SQ QHS #1 vial 06/18/20 05/12/21 Rx Insulin NPH/Regular [NovoLIN 70/30] 4 unit SUB-Q BID #1 vial 06/18/20 05/11/21 Rx Loperamide [Imodium] 2 mg PO TID #90 capsule 06/18/20 05/12/21 Rx Magnesium Oxide [Mag-Ox] 400 mg PO QDAY #14 tablet 06/18/20 05/12/21 Rx Nicotine [Habitrol] 7 mg TD QDAY #30 patch 06/18/20 05/12/21 Rx OLANzapine [ZyPREXA] 5 mg PO DAILY #30 tablet 06/18/20 05/12/21 Rx Tamsulosin [Flomax] 0.4 mg PO QDAY #30 cap 06/18/20 05/12/21 Rx Allergies Allergy/AdvReac Type Severity Reaction Status Date / Time Sulfa (Sulfonamide Allergy Rash Verified 05/06/20 09:28 Antibiotics) ED Review of Systems Comment: All other systems reviewed and negative Constitutional: denies: chills, fever Respiratory: denies: cough, shortness of breath, SOB with exertion Cardiovascular: denies: chest pain, palpitations Gastrointestinal: denies: abdominal pain, nausea, vomiting Musculoskeletal: denies: back pain Neurological: denies: headache, weakness, numbness, paresthesias Psychiatric: denies: anxiety, depression, auditory hallucinations, visual hallucinations, homicidal thoughts ED Past Medical Hx - Past Medical History Hx Hypertension: No Hx Heart Attack/AMI: No Hx Congestive Heart Failure: No Hx Diabetes: Yes Hx Deep Vein Thrombosis: No Hx Pulmonary Embolism: No Hx Liver Disease: No Hx Renal Disease: No Hx Sickle Cell Disease: No Hx Arthritis: No Hx Seizures: No Hx Asthma: No Hx COPD: No Hx HIV: No Additional medical history: Left perianal abscess - Surgical History Hx Pacemaker: No Hx Internal Defibrillator: No Hx Cholecystectomy: No Hx Appendectomy: No Additional Surgical History: Incision and drainage perianal abscess - Social History Smoking Status: Current Every Day Smoker - Medications Home Medications: Home Medications Medication Instructions Recorded Confirmed Last Taken Type Balsalazide Disodium [Colazal] 750 mg PO TID 03/31/20 05/14/21 05/12/21 History Potassium Chloride [K-Dur] 10 meq PO BID 03/31/20 05/14/21 05/12/21 History ursodioL [Ursodiol] 300 mg PO BID 03/31/20 05/14/21 05/12/21 History Acetaminophen [Acetaminophen TAB] 650 mg PO Q4H PRN tablet 04/04/20 05/14/21 05/12/21 Rx Zinc Oxide 1 applic TP BID #7 tube 04/12/20 05/14/21 05/14/21 03:49 Rx oxyCODONE /ACETAMINOPHEN [Percocet 1 tab PO Q6H PRN #14 tablet 05/04/20 05/14/21 05/12/21 Rx 5/325 mg] Potassium Chloride 20 meq PO QDAY #14 packet 05/14/20 05/14/21 05/12/21 Rx Acetaminophen [Acetaminophen TAB] 650 mg PO Q4H PRN tablet 06/18/20 05/14/21 05/12/21 Rx Insulin Detemir [Levemir VIAL] 25 unit SQ QHS #1 vial 06/18/20 05/14/21 05/12/21 Rx Insulin NPH/Regular [NovoLIN 70/30] 4 unit SUB-Q BID #1 vial 06/18/20 05/14/21 05/11/21 Rx Loperamide [Imodium] 2 mg PO TID #90 capsule 06/18/20 05/14/21 05/12/21 Rx Magnesium Oxide [Mag-Ox] 400 mg PO QDAY #14 tablet 06/18/20 05/14/21 05/12/21 Rx Nicotine [Habitrol] 7 mg TD QDAY #30 patch 06/18/20 05/14/21 05/12/21 Rx OLANzapine [ZyPREXA] 5 mg PO DAILY #30 tablet 06/18/20 05/14/21 05/12/21 Rx Tamsulosin [Flomax] 0.4 mg PO QDAY #30 cap 06/18/20 05/14/21 05/12/21 Rx ED Physical Exam - General General appearance: alert, in no apparent distress, anxious - Head Head exam: Present: atraumatic, normocephalic, normal inspection - Eye Eye exam: Present: normal appearance, PERRL - ENT ENT exam: Present: normal exam, normal orophraynx, mucous membranes moist - Neck Neck exam: Present: normal inspection, full ROM. Absent: tenderness, meningismus - Respiratory Respiratory exam: Present: normal lung sounds bilaterally - Cardiovascular Cardiovascular Exam: Present: regular rate, normal rhythm, normal heart sounds - GI/Abdominal GI/Abdominal exam: Present: soft, normal bowel sounds. Absent: distended, tenderness, guarding, rebound, rigid, organomegaly, mass, bruit, pulsatile mass, hernia - Extremities Exam Extremities exam: Present: normal inspection, full ROM, normal capillary refill. Absent: tenderness, pedal edema, joint swelling, calf tenderness - Back Exam Back exam: Present: normal inspection, full ROM. Absent: CVA tenderness (R), CVA tenderness (L) - Neurological Exam Neurological exam: Present: alert, oriented X3, CN II-XII intact, normal gait, reflexes normal. Absent: motor sensory deficit - Psychiatric Psychiatric exam: Present: normal mood. Absent: homicidal ideation - Skin Skin exam: Present: warm, intact, normal color ED Disposition Clinical Impression: Medical clearance for psychiatric admission, Cocaine use, Schizophrenia Disposition: DC-01 TO HOME OR SELFCARE Condition: Stable Instructions: Schizophrenia, Managing Schizophrenia, Stimulant Use Disorder- Cocaine Additional Instructions: Professional and Agency Contacts To help [facility] Cr[facility](23/05) [place] Crisis Line: Suicide Prevention Line: Crisis Text Line: Text START to [phone] Emergency: 911 Outpatient COMMUNITY Behavioral Health Resources: GREGORB: [facility] [address] [place], [place] [address] [address] [facility] - [address] [place] [address] Tuesday thru Tuesday - 8am - 5pm [facility] Service Address: [address] [place] [address] JALYN: [facility] Address: [address] [place] [address] Tuesday thru Tuesday- 7am-2pm [facility] Address: [address] [place] [address] Tuesday thru Tuesday: 8:30AM-5PM OUTPATIENT MENTAL HEALTH RESOURCES [facility], [address] [place], [place] [id number] [facility] Angelo Mon MD: [address] [place] [address] [facility] [place] [facility]: [address] [place] [address] [place], [place] [id number] [phone] [facility]: [address] [facility] [address] [place] [address] [phone] [facility] Healthcare: [address] [place] [id number] [facility]: [address] [place], [place] Maritn Rosas MD: [address] [facility] [id number] [facility]: [address] [place], [place] [id number] [phone] [place] CRISIS AND ACCESS LINE: * In case of an emergency, please contact the following numbers: [place] Crisis and Access Line: Number: Crisis Text Line: (Text START) Number: 913170 Suicide Prevention Line: Number: Emergency Number: 911 SUBSTANCE ABUSE PROGRAMS: [facility]: Location: [employer], [place] [facility] Address: [address] [place] [address] [facility] Recovery: Address: [address] [place] [address] [facility] Adult Rehabilitation: Address: [address] [place] [address] [facility] Community: Address: [address] [place] [address] [facility] Address: [address] [place] [address]. Please contact above numbers to attempt placement into free based program. Medicaid Programs: [facility]: Address: [address] [place] [address] [facility]: Address: [address] [place] [id number] Referrals: PRIMARY CARE, [Primary Care Provider] - 3-5 Days [facility] [Outside] - 3-5 Days [facility] [Provider Group] - 3-5 Days <DENISE BAEZA S - Last Filed: 05/28/21 10:43> ED Review of Systems ROS: Stated complaint: MH Other details as noted in HPI ED Course Vital Signs 05/26/21 05/26/21 05/26/21 17:24 20:14 22:00 Temperature 98.0 F 98.0 F Pulse Rate 73 100 H Respiratory 18 18 Rate Blood Pressure 111/62 112/70 [Left] O2 Sat by Pulse 100 99 98 Oximetry 05/27/21 05/27/21 05/27/21 01:45 07:58 22:00 Temperature 98.8 F 98.0 F 98.0 F Pulse Rate 82 90 74 Respiratory 16 20 20 Rate Blood Pressure 96/66 110/73 110/80 [Left] O2 Sat by Pulse 95 100 98 Oximetry 05/28/21 05/28/21 05/28/21 01:00 09:46 09:55 Temperature 98.2 F 97.9 F Pulse Rate 76 80 Respiratory 20 18 Rate Blood Pressure 116/70 113/74 [Left] O2 Sat by Pulse 99 99 99 Oximetry ED Medical Decision Making - Medical Decision Making 05/28/21 1040 AM: This patient, with history of schizophrenia, presented to the emergency depa rtment 2 days ago for a mental health evaluation and medical clearance after he was missing from his skilled nursing for about 3 weeks and then presented with some confusion or altered mental status. The patient has been evaluated each day by the psychiatric team who have signed off on this patient. There have been no events overnight or anything signed out to the emergency department psychiatric nurse from this morning. He is resting comfortably. He denies any suicidal or homicidal ideations. The patient's urinalysis was unremarkable but UDS positive for cocaine. However he does not appear acutely intoxicated today. He is refusing any blood draws. He is not exhibiting any signs of acute psychosis at this time. The patient is a green of the [facility] and case management has been working with the patient and the [facility] for placement. It appears that the patient has been given a new residential placement and will be discharged to this location this morning or afternoon. Critical Care Time: No Critical care attestation.: If time is entered above; I have spent that time in minutes in the direct care of this critically ill patient, excluding procedure time. ED Disposition Is pt being admited?: No Time of Disposition: 10:39
[2021-05-26 17:56] LABS: Amphetamine Screen,Urine Negative; Benzodiazepines Screen,Urine Negative; Cannabinoid Screen,Urine Negative; Methadone Screen,Urine Negative; Opiate Screen,Urine Negative
[2021-05-26 18:00] LABS: Bilirubin,Urine NEG (Negative); Blood,Urine NEG (Negative); Color,Urine Straw (Yellow); Mucus,Urine FEW /HPF; Protein,Urine <15 mg/dL mg/dL (Negative); Urobilinogen,Urine < 2.0 mg/dL (<2.0)
[2021-05-26 18:08] LABS: RBC,Urine < 1.0 /HPF (0.0-6.0); WBC,Urine < 1.0 /HPF (0.0-6.0)
[2021-05-26 18:37] LABS: Cocaine Screen,Urine Positive
--- NOTE | 2021-05-26 23:26 | XRay Report ---
CHEST 1 VIEW 05/26/2021 9:54 PM INDICATION / CLINICAL INFORMATION: TB screening for psych placement. COMPARISON: One view of the chest from 05/13/2021 FINDINGS: SUPPORT DEVICES: None. HEART / MEDIASTINUM: No significant abnormality. LUNGS / PLEURA: No significant pulmonary abnormality. No significant pleural effusion. No pneumothora x. ADDITIONAL FINDINGS: No significant additional findings. IMPRESSION: 1. No acute abnormality of the chest. Signer Name: Derick Pruitt MD Signed: 05/26/2021 11:21 PM Workstation Name: [id number]
--- NOTE | 2021-05-27 12:00 | Consultation ---
History of Present Illness - Reason for Consult Consult date: 05/27/21 Reason for consult: Mental health evaluation - History of Present Psychiatric Illness ED Note: Patient is a 35 years old male with history of schizophrenia and insulin-dependent diabetes. Patient brought to the emergency room by his manufacturing group leader. She stated that patient was missed for approximately 3 weeks. She stated that patient returned today with confusion and they want him to be medically cleared before they can receive him. Patient has a strong smell of alcohol. Patient denied any suicidal or homicidal ideation. He denied any auditory or visual hallucination. His home wound annual greenhouse manager stated that he is out of his medication for a while. Son Kessler is a 35 year male with a history of schizophrenia who present to the ED for medical clearance. In my interview with the patient, the patient is calm and cooperative. He states " I got a little hot, I did not have a place stay and my gearcase assembler sent me here." The patient denies any current suicidal ideation and denies hallucinations. PAST PSYCHIATRIC HISTORY Diagnoses: Schizophrenia Suicide attempts or Self-harm behavior: Denies Prior psychiatric hospitalizations: Yes Substance Abuse history: Denies Previous psychiatric medications tried: Zyprexa Outpatient treatment: Yes SOCIAL HISTORY Marital Status: Single Living Arrangements: homeless Employment Status: unemployed Access to guns/weapons: Denied Education: 9th grade History of Abuse: Denied Legal History: None reported REVIEW OF SYSTEMS Constitutional: Negative for weight loss ENT: Negative for stridor Respiratory: Negative for cough or hemoptysis All other systems reviewed and are negative MENTAL STATUS EXAMINATION General Appearance and Behavior: Age appropriate, dressed appropriately, calm and cooperative Cooperation: Participating Psychomotor Behavior: psychomotor normal Mood: calm Affect and affective range: Congruent with stated mood Thought Process: Goal directed Thought Content: Not SI Speech: Normal volume, Regular rate and rhythm, Intellectual Functioning: Average Suicidal Ideation: Denied Homicidal Ideation: Denied Hallucinations: Denied Delusions: None elicited Impulse Control: Unimpaired Insight and Judgment: Limited insight and judgment, Memory: Normal Attention: Undivided Orientation: Alert, oriented Assessment and Plan (1) (2) Treatment plan Risks, benefits and alternatives of medications discussed with the patient, questions answered and consent obtained from patient. PSYCHOTHERAPY: Supportive psychotherapy provided MEDICAL: Per primary team DELIRIUM PRECAUTIONS: Please re-orient patient frequently, keep lights on during the day, and minimize benzodiazepines and opiates as these medications could worsen patient's confusion. REGULATORY SCIENTIST: Per medical team DISPOSITION: Do not recommend acute inpatient psychiatric hospitalization. FOLLOW-UP: Will sign off. Patient knows to follow up with psychiatric outpatient and to call the crisis hotline or go the ER if suicidal/ homicidal or any endangering ideas arise. Thank you for the consult. Please contact with any questions and/or concerns. Case staffed with Dr. Stein Medications and Allergies Allergies Allergy/AdvReac Type Severity Reaction Status Date / Time Sulfa (Sulfonamide Allergy Rash Verified 05/06/20 09:28 Antibiotics) Home Medications Medication Instructions Recorded Confirmed Last Taken Type Balsalazide Disodium [Colazal] 750 mg PO TID 03/31/20 05/14/21 05/12/21 History Potassium Chloride [K-Dur] 10 meq PO BID 03/31/20 05/14/21 05/12/21 History ursodioL [Ursodiol] 300 mg PO BID 03/31/20 05/14/21 05/12/21 History Acetaminophen [Acetaminophen TAB] 650 mg PO Q4H PRN tablet 04/04/20 05/14/21 05/12/21 Rx Zinc Oxide 1 applic TP BID #7 tube 04/12/20 05/14/21 05/14/21 03:49 Rx oxyCODONE /ACETAMINOPHEN [Percocet 1 tab PO Q6H PRN #14 tablet 05/04/20 05/14/21 05/12/21 Rx 5/325 mg] Potassium Chloride 20 meq PO QDAY #14 packet 05/14/20 05/14/21 05/12/21 Rx Acetaminophen [Acetaminophen TAB] 650 mg PO Q4H PRN tablet 06/18/20 05/14/21 05/12/21 Rx Insulin Detemir [Levemir VIAL] 25 unit SQ QHS #1 vial 06/18/20 05/14/21 05/12/21 Rx Insulin NPH/Regular [NovoLIN 70/30] 4 unit SUB-Q BID #1 vial 06/18/20 05/14/21 05/11/21 Rx Loperamide [Imodium] 2 mg PO TID #90 capsule 06/18/20 05/14/21 05/12/21 Rx Magnesium Oxide [Mag-Ox] 400 mg PO QDAY #14 tablet 06/18/20 05/14/21 05/12/21 Rx Nicotine [Habitrol] 7 mg TD QDAY #30 patch 06/18/20 05/14/21 05/12/21 Rx OLANzapine [ZyPREXA] 5 mg PO DAILY #30 tablet 06/18/20 05/14/21 05/12/21 Rx Tamsulosin [Flomax] 0.4 mg PO QDAY #30 cap 06/18/20 05/14/21 05/12/21 Rx Mental Status Exam - Vital signs Last Vital Signs Temp 98.0 F 05/27/21 07:58 Pulse 90 05/27/21 07:58 Resp 20 05/27/21 07:58 BP 110/73 05/27/21 07:58 Pulse Ox 100 05/27/21 07:58 Results All other labs normal.
[2021-05-28 09:57] VITALS: BP 113/74
--- NOTE | 2021-05-28 10:03 | Progress Note ---
Subjective - Reason for Consult Consult date: 05/28/21 Reason for consult: Mental health evaluation - Chief Complaint Chief complaint: The patient was seen resting quietly, he reports doing well. He denies any current suicidal/homicidal ideation and denies hallucinations. Per nurse, the patient had a quiet night. Awaiting caser up for disposition. REVIEW OF SYSTEMS Constitutional: Negative for weight loss ENT: Negative for stridor Respiratory: Negative for cough or hemoptysis All other systems reviewed and are negative MENTAL STATUS EXAMINATION General Appearance and Behavior: Age appropriate, dressed appropriately, calm and cooperative Cooperation: Participating Psychomotor Behavior: psychomotor normal Mood: calm Affect and affective range: Congruent with stated mood Thought Process: Goal directed Thought Content: Not SI Speech: Normal volume, Regular rate and rhythm, Intellectual Functioning: Average Suicidal Ideation: Denied Homicidal Ideation: Denied Hallucinations: Denied Delusions: None elicited Impulse Control: Unimpaired Insight and Judgment: Limited insight and judgment, Memory: Normal Attention: Undivided Orientation: Alert, oriented Assessment and Plan (1)Schizophrenia (2) Treatment plan Risks, benefits and alternatives of medications discussed with the patient, questions answered and consent obtained from patient. PSYCHOTHERAPY: Supportive psychotherapy provided MEDICAL: Per primary team DELIRIUM PRECAUTIONS: Please re-orient patient frequently, keep lights on during the day, and minimize benzodiazepines and opiates as these medications could worsen patient's confusion. ENGINE TESTER: Per medical team DISPOSITION: Do not recommend acute inpatient psychiatric hospitalization. FOLLOW-UP: Will sign off. Patient knows to follow up with psychiatric outpatient and to call the crisis hotline or go the ER if suicidal/ homicidal or any endangering ideas arise. Thank you for the consult. Please contact with any questions and/or concerns. Case staffed with Dr. Stein Mental Status Exam - Vital signs Last Vital Signs Temp 97.9 F 05/28/21 09:55 Pulse 80 05/28/21 09:55 Resp 18 05/28/21 09:55 BP 113/74 05/28/21 09:55 Pulse Ox 99 05/28/21 09:55
== END 2021-05-28 11:47 | disposition home or self-care (01) ==
LOC: ED 16:16 → EEVIPCON 16:16 → ED 05-28 11:47
DX: F20.9 Schizophrenia, unspecified (principal); Z20.822 Contact with and (suspected) exposure to COVID-19; F14.10 Cocaine abuse, uncomplicated; E11.9 Type 2 diabetes mellitus without complications; F17.200 Nicotine dependence, unspecified, uncomplicated
CPT/HCPCS: 71045; 80307; 81001; 99284; U0003